=== PATIENT | female | born 1985 | race Caucasian/White ===

== ENCOUNTER 2018-01-07 11:25 | Emergency (ER) | payer MEDICARE, MEDICAID, SELFPAY ==
[2018-01-07 11:38] VITALS: BP 124/80; PULSE 76; RESP 18; TEMP 37.2; O2SAT 96
--- NOTE | 2018-01-07 12:42 | ED.GENADUL_ITS ---
Disposition Clinical Impression: Exposure to hepatitis C Disposition: HOME Condition: Stable Instructions: Hepatitis C (ED) Additional Instructions: If you start having yellowing of your skin, fever chills, nausea vomiting, abdominal pain please feel free to return immediately to the emergency department otherwise it is strongly recommended that you follow-up with your primary care provider for further testing due to your exposure to hepatitis C. Referrals: Oleg Thibodeaux MD [Primary Care Provider] - (Follow-up with her primary care provider for further testing of your possible hepatitis C.) Medical Decision Making - Medical Decision Making Patient presenting to the emergency department for possible hepatitis C exposure. Patient is asymptomatic and without any specific physical exam findings asked acute hepatitis. Patient was offered to perform CBC and CMP along with hepatitis panel but was told informed that we would have to wait for these results as this is a send out lab. Patient states that she was hoping to get results today and that she can go to the [facility] clinic and can get rapid hep C testing performed. I informed her I be still willing to perform labs here. She was agreeable to having labs performed and following up with her primary care provider next week for results. Pending lab coming to draw patient's blood she changed her mind and stated she would rather be discharged and go get the rapid test. Patient was encouraged to return for any new or worsening signs or symptoms of acute hepatitis and she was instructed that we could do these tests at any point that she continually stated she would prefer just to follow-up on an outpatient basis with her primary care and get testing at the clinic done due to not having any current symptoms. After discussion of diagnosis and plan of care with patient patient agreed and stated no further needs, questions, or concerns at this time. History of Present Illness - General Chief complaint: BodyFldExp Stated complaint: STD EXPOSURE? Time Seen by Provider: 01/07/18 12:00 Source: patient, RN notes reviewed Mode of arrival: ambulatory Limitations: no limitations - History of Present Illness Initial comments: Patient reports today she found out that her significant other tested positive for hepatitis C. She states that months ago she had shared needles with him but never had any symptoms. This weekend she did go down to [place] and had a dirty needle that she used which she assumed that it was hers but now is questioning that. Patient denies any fever chills, vomiting, abdominal pain, change in stool color. Patient does state some ongoing constipation. Associated Symptoms: denies other symptoms Treatments Prior to Arrival: none - Related Data Albuterol Sulfate [Accuneb] 0.63 mg IH PRN PRN 09/22/12 Methadone Liquid [Dolophine Liquid] 80 mg PO DAILY 12/03/17 Promethazine [Phenergan] 25 mg PO Q6H PRN #10 tab 12/03/17 Allergies Allergy/AdvReac Type Severity Reaction Status Date / Time clindamycin Allergy Severe Swelling/Ed Unverified 11/07/17 09:05 toya ibuprofen Allergy Intermediate Swelling/Ed Unverified 11/07/17 09:05 toya indomethacin Allergy Intermediate Swelling/Ed Unverified 11/07/17 09:05 toya latex Allergy Mild Itching Unverified 11/07/17 09:05 Latex, Natural Rubber Allergy Mild Skin Rash Unverified 11/07/17 09:05 Review of Systems Constitutional: denies: chills, diaphoresis, fever, malaise Respiratory: denies: cough, shortness of breath Cardiovascular: denies: chest pain Gastrointestinal: constipation. denies: abdominal pain, nausea, vomiting, diarrhea, melena, hematochezia Genitourinary: denies: dysuria, discharge, dyspareunia Musculoskeletal: denies: joint swelling Skin: denies: rash, change in color Neurological: denies: headache Past Medical History - Past Medical History Medical history: asthma Narcotic drug abuse Surgical history: bilateral tubal ligation Psychiatric history: anxiety, bipolar - Social History Smoking status: current everyday smoker Alcohol use: none Drug use: cocaine, marijuana, other (Heroin) Living Situation: lives with family General Exam - General Limitations: no limitations General appearance: alert, in no apparent distress - Eye Eye exam: Present: normal apperance. Absent: scleral icterus, conjunctival injection, nystagmus Pupils: Present: normal accommodation - Respiratory Respiratory exam: Present: normal lung sounds bilaterally - Cardiovascular Cardiovascular Exam: Present: regular rate, normal rhythm, normal heart sounds - GI/Abdominal GI/Abdominal exam: Present: soft, normal bowel sounds. Absent: tenderness, guarding, rebound, rigid, organomegaly, mass, bruit, pulsatile mass - Rectal Rectal exam: Present: deferred - Expanded Exam No standard instances Female exam: Present: deferred - Neurological Exam Neurological exam: Present: alert, oriented X3. Absent: altered - Skin Skin exam: Present: warm, dry, normal color Course Vital Signs - 24 hr 01/07/18 11:38 Temperature 37.2 C Pulse 76 Respiratory 18 Rate Blood Pressure 124/80 Pulse Oximetry 96
[2018-01-07 12:44] VITALS: BP 124/80; PULSE 76; RESP 18; TEMP 37.2; O2SAT 96
--- NOTE | 2018-01-07 12:46 | NUR.NOTE ---
Nursing Note: Patient refused to have her blood work performed and stated I am just going to go down to the [facility] clinic where they will give me my results right away. Patient stated I will go to my primary after.
== END 2018-01-07 12:44 | disposition home or self-care (01) ==
PROVIDERS: Emergency Provider Student in an Organized Health Care Education/Training Program; PCP Internal Medicine
DX: Z20.5 Contact with and (suspected) exposure to viral hepatitis (principal); F19.10 Other psychoactive substance abuse, uncomplicated
CPT/HCPCS: 99281 ×2; 80053; 86704; 86709; 86803; 87340; 85025

== ENCOUNTER 2018-01-16 17:22 | Emergency (ER) | payer MEDICARE, MEDICAID, SELFPAY ==
[2018-01-16 17:27] VITALS: BP 125/66; PULSE 77; RESP 18; TEMP 36.9; O2SAT 99
--- NOTE | 2018-01-16 17:38 | ED.GENADUL_ITS ---
Disposition Clinical Impression: Tooth infection Disposition: HOME Condition: Stable Additional Instructions: you need to follow up with a dentist or this tooth will continue to become infected if you have difficulty swallowing saliva or difficulty breathing return to the emergency department Prescriptions: Amoxicillin 500 mg PO BID #20 capsule Medical Decision Making - Medical Decision Making patient here with likely dental infection from her caries. 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 will have her f/u with dentist and start her on abx. Will also perform local nerve block given her pain at her request. She gives verbal consent to the block after discussion of risks and benefits. She has no evidence of abscess requiring drainage at this time - Differential Diagnosis caries, pulpitis History of Present Illness - General Chief complaint: DentalOral Stated complaint: TOOTHACHE Time Seen by Provider: 01/16/18 17:24 Source: patient Mode of arrival: ambulatory Limitations: no limitations - History of Present Illness Initial comments: 32 yo female comes in with left lower molar pain starting today. HAs significant erosion of the posterior molar lower left that she has left in her mouth (numerous teeth missing). no fevers, sob or difficulty swallowing. She has pain with percussion to this tooth. No submandibular swelling, normal oropharynx with midline uvula, no restricted neck movements and no pain over the hyoid. MD Complaint: tooth pain Onset/Timin -: days(s) Improves with: none Worsens with: none - Related Data Albuterol Sulfate [Accuneb] 0.63 mg IH PRN PRN 09/22/12 Methadone Liquid [Dolophine Liquid] 80 mg PO DAILY 12/03/17 Promethazine [Phenergan] 25 mg PO Q6H PRN #10 tab 12/03/17 Amoxicillin 500 mg PO BID #20 capsule 01/16/18 Allergies Allergy/AdvReac Type Severity Reaction Status Date / Time clindamycin Allergy Severe Swelling/Ed Unverified 01/16/18 17:28 toya ibuprofen Allergy Intermediate Swelling/Ed Unverified 01/16/18 17:28 toya indomethacin Allergy Intermediate Swelling/Ed Unverified 01/16/18 17:28 toya latex Allergy Mild Itching Unverified 01/16/18 17:28 Latex, Natural Rubber Allergy Mild Skin Rash Unverified 01/16/18 17:28 Review of Systems Constitutional: denies: fever ENT: dental pain. denies: throat pain Respiratory: denies: shortness of breath Gastrointestinal: denies: abdominal pain, nausea, vomiting Musculoskeletal: denies: back pain Skin: denies: rash Comment: All other systems reviewed and negative Past Medical History - Past Medical History Medical history: asthma Narcotic drug abuse Surgical history: bilateral tubal ligation - Social History Alcohol use: none Drug use: cocaine, marijuana, other (Heroin) General Exam - General Limitations: no limitations General appearance: alert, in no apparent distress - Head Head exam: Present: atraumatic - Eye Eye exam: Present: normal apperance - ENT ENT exam: Present: mucous membranes moist, other (see hpi) - Neck Neck exam: Present: normal inspection, full ROM. Absent: tenderness - Respiratory Respiratory exam: Absent: respiratory distress - Cardiovascular Cardiovascular Exam: Present: regular rate - Neurological Exam Neurological exam: Present: alert, oriented X3, normal gait - Skin Skin exam: Present: warm Course Vital Signs - 24 hr 01/16/18 17:27 Temperature 98.4 F Pulse 77 Respiratory 18 Rate Blood Pressure 125/66 Pulse Oximetry 99 Procedures - Nerve Block Consent Obtained: Verbal consent Time Out Performed: Yes Local Anesthetic Used: Lidocaine 2% Amount of anesthesia used: 5 Side: left Intraoral Nerve Block: supraperiosteal Procedure Successful: Yes Complications: none Patient Tolerated Procedure: well
[2018-01-16] MEDS: Amoxicillin 500 MG CAP PO (17:40)
[2018-01-16] MEDS: Benzocaine 20% Gel 30 GM JAR MM (17:41)
== END 2018-01-16 18:05 | disposition home or self-care (01) ==
PROVIDERS: Emergency Provider Emergency Medicine; PCP Internal Medicine
DX: K04.7 Periapical abscess without sinus (principal)
CPT/HCPCS: 99283 ×2

== ENCOUNTER 2018-06-07 09:07 | Emergency (ER) | payer MEDICARE, MEDICAID, SELFPAY ==
[2018-06-07 09:10] VITALS: BP 113/44; PULSE 70; RESP 14; TEMP 37.1; O2SAT 97
--- NOTE | 2018-06-07 09:27 | ED.GENADUL_ITS ---
Discharge Plan Disposition Patient Disposition: HOME Condition: Stable Discharge Details Chief Complaint: Cellulitis Clinical Impression: Cellulitis of hand Primary Care Provider: Oleg Thibodeaux ED Provider: Morena Story Home Meds and New Rx's Prescriptions: New sulfamethoxazole-trimethoprim [Bactrim DS] 800-160 mg tablet 1 tab PO DAILY Qty: 19 RF: 0 cephalexin [Keflex] 500 mg capsule 500 mg PO QID Qty: 39 RF: 0 Continued albuterol sulfate [AccuNeb] 0.63 MG/3 ML solution for nebulization 0.63 mg Inhalation PRN PRNRF: 0 methadone 10 MG/ML concentrate 90 mg PO DAILY RF: 0 Discharge Instructions Instructions: Cephalexin (By mouth), Sulfamethoxazole/Trimethoprim (By mouth), Cellulitis (ED) Additional Instructions: Please return immediately to the emergency department if you develop any new or worsening symptoms or if you become otherwise concerned. It is extremely important that you return here to the emergency department in 24 hours for a recheck of your infection. Referrals: Oleg Thibodeaux MD [Primary Care Provider] - Medical Decision Making Osiris Márquez is a 22-year-old woman with history of asthma, on methadone presenting to the emergency department with pain, redness, swelling to the left hand after using her own dirty needle to inject focal and 4 days ago at that site. On exam patient is very well and nontoxic appearing no cardiac murmur. Some limited flexion of the left wrist, but able to extend normally. Erythema, mild edema, and tenderness over the dorsum of the left hand, no fluctuance. Concern for cellulitis. FB. exam/history is not consistent with abscess, septic arthritis of the wrist, sepsis, endocarditis, osteomyelitis, necrotizing fasciitis. Plan for x-ray for rule out foreign body. At this point, plan for p.o. antibiotics with follow-up in 24 hours here for reevaluation of infection. X-ray okay, no gas, no foreign body. Lengthy discussion with patient regarding return to emergency department precautions and importance of outpatient follow- up here in 24 hours. She verbalizes understanding of and is amenable to the plan. Medical Records Medical records reviewed: Yes I reviewed the patient's medical records. Imaging Data Radiologic Study: Attestation: I personally reviewed and interpreted this imaging study as follows: My impression: No gas, no foreign body Radiologist's impression: No acute process, preliminary read HPI General Mode of arrival: ambulatory . Date/Time Provider Initiated Documentation: 06/07/18 09:27 . Limitations to Documentation: no limitations . Information obtained by: patient, RN notes reviewed and old records reviewed . HPI Narrative: Osiris Calle is a 32-year-old woman with history of asthma, on methadone presenting to the emergency department with hand pain and redness. Patient reports that 4 days ago she used her own dirty needle to inject Focalin to the dorsum of her left hand. Patient reports that yesterday she noticed redness and swelling to the top of her hand. Pain, redness, and swelling have persisted into today. She has not had any other pain, fevers, nausea/vom iting/diarrhea, any other rash. Feels otherwise in her usual state of health. Has been eating and drinking as usual. No drainage from the site. She does not think that the needle broke during injection. Related Data Home Medications Medication Instructions Recorded Confirmed albuterol sulfate [AccuNeb] 0.63 mg INHALATION PRN PRN 09/22/12 06/07/18 methadone 90 mg PO DAILY 12/03/17 06/07/18 cephalexin [Keflex] 500 mg PO QID #39 cap 06/07/18 sulfamethoxazole-trimethoprim 1 tab PO DAILY #19 tab 06/07/18 [Bactrim DS] Previous Rx's Medication Instructions Recorded cephalexin [Keflex] 500 mg PO QID #39 cap 06/07/18 sulfamethoxazole-trimethoprim 1 tab PO DAILY #19 tab 06/07/18 [Bactrim DS] Allergies Allergy/AdvReac Type Severity Reaction Status Date / Time clindamycin Allergy Severe Swelling/Ed Unverified 06/07/18 09:21 toya ibuprofen Allergy Intermediate Swelling/Ed Unverified 06/07/18 09:21 toya indomethacin Allergy Intermediate Swelling/Ed Unverified 06/07/18 09:21 toya latex Allergy Mild Itching Unverified 06/07/18 09:21 Latex, Natural Rubber Allergy Mild Skin Rash Unverified 06/07/18 09:21 General Stated Complaint: Cellulitis NAVID: 3 Review of Systems Review of Systems Constitutional: denies fevers Eyes: denies eye pain ENT: denies facial pain, dental pain, sore throat Cardiovascular: denies chest pain Respiratory: denies SOB, cough GI: denies abdominal pain, vomiting, diarrhea : denies flank pain MSK: denies back pain, neck pain, arthralgias, myalgias Skin: Reports rash as per HPI Neuro: denies headaches, weakness PFSH Social History Smoking/Tobacco Use Status: Current every day Exam Narrative Exam Narrative: Constitutional: well and [id number], pleasant, conversing normally HENT: head atraumatic, normocephalic normal inspection, mucous membranes moist Eyes: conjunctiva normal, sclera normal, pupils 3mm b/l Neck: no stridor, normal ROM, trachea midline Resp: normal work of breathing, LCTAB Cardio: normal rate, normal rhythm, no murmur appreciated Skin: warm, dry, normal color, no rash other than as below Neuro: alert, not altered, grossly non-focal, normal tone Ext: Left hand with dorsal edema, erythema that extends over left wrist. No drainage. Patient is able to extend wrist, has pain with flexion due to tightness from swelling, no bony tenderness to palpation of the left wrist. Range of motion preserved in all digits. Normal exam of the left elbow and forearm. Normal capillary refill. Radial pulse intact and symmetric. Psych: normal mood, normal affect, normal behavior Course Vital Signs Temperature 37.1 C 06/07/18 09:10 Pulse 70 06/07/18 09:10 Respiratory Rate 14 06/07/18 09:10 Blood Pressure 113/44 L 06/07/18 09:10 Pulse Oximetry 97 06/07/18 09:10 Temperature 37.1 C 06/07/18 09:10 Temperature Source Skin 06/07/18 09:10 Pulse 70 06/07/18 09:10 Respiratory Rate 14 06/07/18 09:10 Respiratory Effort 06/07/18 09:19 Blood Pressure 113/44 L 06/07/18 09:10 Blood Pressure Position Sitting 06/07/18 09:10 Pulse Oximetry 97 06/07/18 09:10 Oxygen Delivery Method Room Air 06/07/18 09:10 Oxygen Flow Rate 0 06/07/18 09:10 Pain Level 7 06/07/18 09:10
--- NOTE | 2018-06-07 09:37 | DI.RAD_ITS ---
SYMPTOM/DIAGNOSIS: INFECTION, CONCERN FOR FOREIGN BODY LEFT HAND: Three views. No acute fracture or dislocation is seen. No radiopaque foreign bodies are seen in the soft tissues. There is soft tissue swelling seen of the hand. IMPRESSION: Soft tissue swelling of the left hand. No radiopaque foreign body.
[2018-06-07] MEDS: Cephalexin 500 MG CAP PO (10:01)
[2018-06-07] MEDS: Sulfameth/Trimeth DS TAB 1 TAB PO (10:01)
== END 2018-06-07 10:20 | disposition home or self-care (01) ==
PROVIDERS: Emergency Provider Student in an Organized Health Care Education/Training Program; PCP Internal Medicine
DX: L03.114 Cellulitis of left upper limb (principal); W46.0XXA Contact with hypodermic needle, initial encounter; F11.90 Opioid use, unspecified, uncomplicated; F15.10 Other stimulant abuse, uncomplicated
CPT/HCPCS: 99284; 73130

== ENCOUNTER 2018-06-08 08:20 | Emergency (ER) | payer MEDICARE, MEDICAID, SELFPAY ==
[2018-06-08 08:25] VITALS: BP 104/65; PULSE 80; RESP 18; TEMP 37.2; O2SAT 100
--- NOTE | 2018-06-08 08:59 | ED.GENADUL_ITS ---
Discharge Plan Disposition Patient Disposition: HOME Discharge Details Chief Complaint: Cellulitis Clinical Impression: Cellulitis of hand, left Primary Care Provider: Oleg Thibodeaux ED Provider: Abiel Gupta Home Meds and New Rx's Prescriptions: Continued albuterol sulfate [AccuNeb] 0.63 MG/3 ML solution for nebulization 0.63 mg Inhalation PRN PRNRF: 0 methadone 10 MG/ML concentrate 90 mg PO DAILY RF: 0 sulfamethoxazole-trimethoprim [Bactrim DS] 800-160 mg tablet 1 tab PO DAILY Qty: 19 RF: 0 cephalexin [Keflex] 500 mg capsule 500 mg PO QID Qty: 39 RF: 0 Discharge Instructions Instructions: Cellulitis (ED) Additional Instructions: Keep the hand elevated above the level of the heart to reduce pain and swelling Continue both antibiotics (keflex and Bactrim), as they are prescribed. Follow-up with regular doctor for recheck in 3-5 days time. Continue your regular medications. Medical Decision Making 32-year-old female with left hand infection that began after using a dirty needle. She was seen in the emergency room yesterday placed on Bactrim and Keflex. She returns for recheck with ongoing swelling and discomfort. Somewhat improved with Tylenol at home. She is afebrile and well appearing. She does have edema and overlying erythema on the dorsum of the left hand. Differential diagnosis would include cellulitis, abscess, osteomyelitis. Referred for x-ray, laboratory testing, ultrasound. Ultrasound reveals soft tissue edema but no fluid collection. X-ray without bony changes. Lab revealed normal white blood cell count, mild elevation of the CRP. Normal ESR. Discussed with her home management including ongoing use of dual therapy antibiotics as prescribed by wilson Forrester for comfort and elevation of the hand, as well as indications for return. Lab Data Lab results reviewed: Yes I reviewed the patient's lab results. Laboratory Results - last 24 hr 06/08/18 06/08/18 09:50 09:50 WBC 9.97 RBC 4.11 Hgb 12.8 Hct 38.1 MCV 92.7 MCH 31.1 MCHC 33.6 RDW 13.7 Plt Count 278 MPV 10.3 Immature Gran % 0.1 Neutrophils % 74.2 Lymphocytes % 15.1 Monocytes % 8.6 Eosinophils % 1.7 Basophils % 0.3 Absolute Neutrophils 7.39 H Absolute Lymphocytes 1.51 Absolute Monocytes 0.86 H Absolute Eosinophils 0.17 Absolute Basophils 0.03 Sodium 139 Potassium 4.3 Chloride 103 Carbon Dioxide 27.3 Anion Gap 8.7 BUN 5 L Creatinine 0.83 Estimated GFR/1.73 m2 >= 60.00 Glucose 83 Calcium 8.5 C-Reactive Protein 2.75 H HPI General Mode of arrival: ambulatory . Date/Time Provider Initiated Documentation: 06/08/18 08:34 . Limitations to Documentation: no limitations . Information obtained by: patient . History of Present Illness 32 year old F presents to the emergency department with the chief complaint of Left hand infec tion, described as moderate, Quality is described as aching, and is localized to the left and upper extremity. Patient reports no radiation. Patient started experiencing this day(s) and it has been constant. No relieving factors improve symptom(s), No exacerbating factors reported . Patient notes no other symptoms.. Patient did receive the following treatments prior to arrival, none Related Data Home Medications Medication Instructions Recorded Confirmed albuterol sulfate [AccuNeb] 0.63 mg INHALATION PRN PRN 09/22/12 06/08/18 methadone 90 mg PO DAILY 12/03/17 06/08/18 cephalexin [Keflex] 500 mg PO QID #39 cap 06/07/18 06/08/18 sulfamethoxazole-trimethoprim 1 tab PO DAILY #19 tab 06/07/18 06/08/18 [Bactrim DS] Previous Rx's Medication Instructions Recorded cephalexin [Keflex] 500 mg PO QID #39 cap 06/07/18 sulfamethoxazole-trimethoprim 1 tab PO DAILY #19 tab 06/07/18 [Bactrim DS] Allergies Allergy/AdvReac Type Severity Reaction Status Date / Time clindamycin Allergy Severe Swelling/Ed Unverified 06/08/18 08:37 toya ibuprofen Allergy Intermediate Swelling/Ed Unverified 06/08/18 08:37 toya indomethacin Allergy Intermediate Swelling/Ed Unverified 06/08/18 08:37 toya latex Allergy Mild Itching Unverified 06/08/18 08:37 Latex, Natural Rubber Allergy Mild Skin Rash Unverified 06/08/18 08:37 General Stated Complaint: Cellulitis NAVID: 3 Review of Systems Review of Systems 6 systems reviewed and otherwise negative [facility] Social History Smoking/Tobacco Use Status: Current every day Exam Narrative Exam Narrative: GEN: awake, alert, oriented 3. Pleasant, well groomed, interactive. HEAD: Normocephalic, atraumatic ENT: Mucous membranes moist, oropharynx unremarkable, External ear exam unremarkable EYES: PERRL, EOMI EXT: Full ROM of the left hand is edematous with approximately 3 x 5 cm area of erythema on the dorsal surface. No significant lymphangitic streaks. Neuro: Grossly normal neurologic exam, conversant, interactive. Psych: Speech fluent, thoughts congruent, affect normal Course Vital Signs Temperature 37.2 C 06/08/18 08:25 Pulse 80 06/08/18 08:25 Respiratory Rate 18 06/08/18 08:25 Blood Pressure 104/65 06/08/18 08:25 Pulse Oximetry 100 06/08/18 08:25 Temperature 37.2 C 06/08/18 08:25 Temperature Source Temporal Artery Scan 06/08/18 08:25 Pulse 80 06/08/18 08:25 Respiratory Rate 18 06/08/18 08:25 Respiratory Effort Non-Labored 06/08/18 08:34 Blood Pressure 104/65 06/08/18 08:25 Blood Pressure Position Sitting 06/08/18 08:25 Pulse Oximetry 100 06/08/18 08:25 Oxygen Delivery Method Room Air 06/08/18 08:25 Oxygen Flow Rate 0 06/08/18 08:25 Pain Level 8 06/08/18 08:25
--- NOTE | 2018-06-08 09:40 | DI.US_ITS ---
SYMPTOMS/DIAGNOSIS: LEFT HAND SWELLING, ? ABSCESS LEFT HAND ULTRASOUND: Sonographic evaluation on the dorsum of the left hand was performed. There is extensive fluid seen in the soft tissues and increased blood flow in the surrounding soft tissues, likely reflecting cellulitis. No definite focal encapsulated fluid collection is seen at this time to suggest an abscess. IMPRESSION: Cellulitis involving the left hand. No definite abscess seen sonographically. The findings were discussed with the Emergency Department on the date of the examination.
--- NOTE | 2018-06-08 09:42 | DI.RAD_ITS ---
SYMPTOMS/DIAGNOSIS: DORSAL PAIN AFTER INJECTION LEFT HAND: Three views. No bone or joint abnormality is identified. There is prominent soft tissue swelling on the dorsum of the hand. No radiopaque foreign bodies are present in the soft tissues. IMPRESSION: Soft tissue swelling on the dorsum of the hand without underlying osseous abnormality.
[2018-06-08 09:58] LABS: Abs Immature Grans 0.01 k/cumm (0.0-0.09); Absolute Basophil Count 0.03 k/cumm (0.0-0.2); Absolute Eosinophil Count 0.17 k/cumm (0.0-0.7); Absolute Lymphocyte Count 1.51 k/cumm (1.2-3.4); Absolute Monocyte Count 0.86 k/cumm (0.11-0.7); Absolute Neutrophil Count 7.39 k/cumm (1.2-6.7); Basophils % 0.3; Eosinophils % 1.7; HCT 38.1 % (36.0-46.0); HGB 12.8 g/dL (12.0-15.5); Immature Grans % 0.1; Lymphocytes % 15.1; Mean Corp. HGB Concentration 33.6 g/dL (32.0-36.0); Mean Corpuscular Hemoglobin 31.1 pg (27.0-33.0); Mean Corpuscular Volume 92.7 fL (80-95); Mean Platelet Volume 10.3 fL (8.0-11.0); Monocytes % 8.6; Neutrophils % 74.2; Platelet Count 278 x1000/uL (130-400); RBC 4.11 m/cumm (4.00-5.20); RBC Distribution Width 13.7 % (11.7-14.6); White Blood Cell Count 9.97 k/cumm (4.4-10.8)
[2018-06-08 10:06] LABS: Anion Gap 8.7 mmol/L (3-11); BUN 5 mg/dL (7-18); C-Reactive Protein 2.75 mg/dL (0.0-0.3); CO2 27.3 mmol/L (21.0-32.0); CREATININE 0.83 mg/dL (0.55-1.02); Calcium 8.5 mg/dL (8.5-10.1); Chloride 103 mmol/L (98-107); Glucose 83 mg/dL (70-100); Potassium 4.3 mmol/L (3.5-5.1); Sodium 139 mmol/L (136-145)
[2018-06-08 10:31] LABS: ESR 17 MM/HR (0-20)
[2018-06-08 11:01] VITALS: BP 104/65; PULSE 80; RESP 18; TEMP 37.2; O2SAT 100
--- NOTE | 2018-06-08 12:17 | PDOC.ERCMPRO ---
Care Management Progress Note 06/08-Dr. Gupta requested assistance with some information for Osiris. Osiris is stating that she needs to be in court at 1:30 today in [place]. She has reported to nursing that she is going to be going [facility]. Met with Osiris. She easily engages in conversation with this CM. Osiris states she has to be in court at 1:30 today in [place] and has requested that a fax be sent letting the court know that she is here. Osiris gave the fax number as [phone]. This CM assisted Dr. Gupta with a note on [facility] Letterhead to the courthouse stating that Osiris is in the Emergency Department and was being discharged. Dr. Gupta signed the note and it was faxed to the court house. Discussion with Osiris that the letter was faxed. Dr. Gupta discussed her being discharged. Osiris stated to this CM that she was not going to the court hearing today because of transportation issues. Dr. Gupta was requesting a PCP (Dr. Thibodeaux) f/u n 3-5 days. This CM called [facility] and spoke with Wilda (Joan, Chronic Helpdesk Manager was not in). Wilda will send message for Joan to f/u with Osiris for appt. if she is not incarcerated. Osiris has this CM's contact information if further assistance is needed.
--- NOTE | 2018-06-08 12:30 | CMPROGNOTE_ITS ---
Care Management Progress Note 06/08-Dr. Gupta requested assistance with some information for Osiris. Osiris is stating that she needs to be in court at 1:30 today in [place]. She has reported to nursing that she is going to be going to retirement. Met with Osiris. She easily engages in conversation with this CM. Osiris states she has to be in court at 1:30 today in [place] and has requested that a fax be sent letting the court know that she is here. Osiris gave the fax number as [phone]. This CM assisted Dr. Gupta with a note on [facility] Letterhead to the courthouse stating that Osiris is in the Emergency Department and was being discharged. Dr. Gupta signed the note and it was faxed to the court house. Discussion with Osiris that the letter was faxed. Dr. Gupta discussed her being discharged. Osiris stated to this CM that she was not going to the court hearing today because of transportation issues. Dr. Gupta was requesting a PCP (Dr. Thibodeaux) f/u n 3-5 days. This CM called [facility] and spoke with Wilda (Joan, Chronic Associate Software Development Engineer was not in). Wilda will send message for Joan to f/u with Osiris for appt. if she is not incarcerated. Osiris has this CM's contact information if further assistance is needed.
== END 2018-06-08 11:10 | disposition home or self-care (01) ==
PROVIDERS: Emergency Provider Emergency Medicine; PCP Internal Medicine
DX: L03.114 Cellulitis of left upper limb (principal)
CPT/HCPCS: 36415; 76882; 80048; 85652; 99283; 73130; 85025; 86140; L3650

== ENCOUNTER 2018-06-11 08:18 | Emergency (ER) | payer MEDICARE, MEDICAID, SELFPAY ==
[2018-06-11 08:21] VITALS: BP 124/86; PULSE 100; RESP 18; TEMP 37.1; O2SAT 100
--- NOTE | 2018-06-11 08:42 | ED.GENADUL_ITS ---
Discharge Plan Disposition Patient Disposition: HOME Condition: Good Discharge Details Chief Complaint: Cellulitis Clinical Impression: Abscess Primary Care Provider: Oleg Thibodeaux ED Provider: Armando Camargo Home Meds and New Rx's Prescriptions: No Action albuterol sulfate [AccuNeb] 0.63 MG/3 ML solution for nebulization 0.63 mg Inhalation PRN PRNRF: 0 methadone 10 MG/ML concentrate 90 mg PO DAILY RF: 0 sulfamethoxazole-trimethoprim [Bactrim DS] 800-160 mg tablet 1 tab PO DAILY Qty: 19 RF: 0 cephalexin [Keflex] 500 mg capsule 500 mg PO QID Qty: 39 RF: 0 Discharge Instructions Instructions: Abscess (ED) Additional Instructions: Continue using your antibiotics. Use Tylenol and Motrin as needed for pain. If you notice any worsening of your symptoms, or any new symptoms such as worsening redness on your risk, worsening swelling, worsening pain, vomiting, diarrhea, fever, chills, shortness of breath, chest pain, numbness, weakness, or fainting , please return immediately to the emergency department for reevaluation. Please follow up with your primary care provider as soon as possible for reassessment and reevaluation. As always, it was a pleasure participating in your medical care today. Referrals: Oleg Thibodeaux MD [Primary Care Provider] - Medical Decision Making This is a 32-year-old female who presents for her signs and symptoms consistent with an abscess. She was seen and assessed here 3 days ago for cellulitis with no signs of an abscess at that time. At that time she just had notable cellulitis. She was started on Bactrim and Keflex. Since then the patient has had a notable amount of swelling over the dorsal medial aspect on the wrist. Her redness has completely improved, she states that her pain and symptoms are much improved compared to normal however the swelling does have her concerned. Physical exam demonstrates an abscess is confirmed by ultrasound bedside. No evidence of joint involvement at this time clinically or on the ultrasound. No cardiac murmur or other concerning abnormalities. Reassuring vital signs. Patient is very apprehensive about actual incision and drainage so we will use an 18-gauge needle for removal/evaluation of potential purulent contents. 9:12 AM An 18-gauge was used for the abscess, no significant purulent material was removed. An 11 blade was then used and a massive amount of purulent material was removed. Patient tolerated this well and was feeling much better after this. Wound cultures were sent. I feel that she is improving well with the antibiotic we will have her continue on this. We discussed red flags which to return. Tetanus is up-to-date. I have extensively reviewed the treatment plan and discharge instructions with the patient. I have addressed all patient concerns at this time. The patient was made aware of what symptoms to monitor for that would warrant a return to the emergency department. Discussed the plan with the patient, they demonstrate verbal understanding and agreement with our assessment and plan at this time. HPI General Date/Time Provider Initiated Documentation: 06/11/18 08:19 . HPI Narrative: This is a 32-year-old female with a past medical history of methadone use, and IV drug use who presents today for swelling on her left nondominant wrist. The patient was seen and assessed here 3 days ago where there was notable cellulitis, however ultrasound report demonstrates no evidence of fluid collection or signs of abscess. The patient was started on Bactrim and Keflex at this time. Since then the patient's redness has notably gone down, her pain is improved, however she has noticed a focal swelling over the dorsal medial aspect of her wrist. The patient admits to slight difficulty flexing and extending her wrist secondary to the swelling but denies any significant or severe pain. Patient denies any systemic symptoms of fever or chills and states that she actually feels much better than she did before she was started on the antibiotic. Patient's tetanus is up-to-date. She denies any other complaints a t this time. She denies any other modifying factors. The area of cellulitis is where she injected with IV Focalin. She denies any breaking of the needle, or any retained products. She denies any pertinent family history or recent surgical history. Related Data Home Medications Medication Instructions Recorded Confirmed albuterol sulfate [AccuNeb] 0.63 mg INHALATION PRN PRN 09/22/12 06/08/18 methadone 90 mg PO DAILY 12/03/17 06/08/18 cephalexin [Keflex] 500 mg PO QID #39 cap 06/07/18 06/08/18 sulfamethoxazole-trimethoprim 1 tab PO DAILY #19 tab 06/07/18 06/08/18 [Bactrim DS] Previous Rx's Medication Instructions Recorded cephalexin [Keflex] 500 mg PO QID #39 cap 06/07/18 sulfamethoxazole-trimethoprim 1 tab PO DAILY #19 tab 06/07/18 [Bactrim DS] Allergies Allergy/AdvReac Type Severity Reaction Status Date / Time clindamycin Allergy Severe Swelling/Ed Unverified 06/08/18 08:37 toya ibuprofen Allergy Intermediate Swelling/Ed Unverified 06/08/18 08:37 toya indomethacin Allergy Intermediate Swelling/Ed Unverified 06/08/18 08:37 toya latex Allergy Mild Itching Unverified 06/08/18 08:37 Latex, Natural Rubber Allergy Mild Skin Rash Unverified 06/08/18 08:37 General Stated Complaint: Cellulitis NAVID: 3 Review of Systems Review of Systems All systems reviewed & are unremarkable except as noted in HPI and below PFSH Social History Smoking/Tobacco Use Status: Current every day Exam Narrative Exam Narrative: 1.Const: Well-nourished, Well-developed, appearing stated age 2.Eyes: PERRL, no conjunctival injection, and symmetrical lids. 3.ENT: Atraumatic external nose and ears. Moist MM. Neck: Symmetric, trachea midline, No thyromegaly. 4.CVS: +S1/S2, No cardiac murmurs or gallops. Peripheral pulses 2+ and equal in all extremities. Brisk capillary refill in all extremities. 5.RESP: Unlabored respiratory effort. Clear to auscultation bilaterally. No wheezes rales or rhonchi 6.GI: Soft, Nontender/Nondistended, No hepatosplenomegaly. No guarding or rebound. 7.MSK: Normocephalic/Atraumatic, No cyanosis or clubbing, the patient's left nondominant wrist demonstrates notable area of swelling and fluctuance over the dorsal medial aspect of the wrist. It is roughly 3 x 3 cm. Limited bedside ultrasound demonstrates evidence of notable fluid collection with associated fluctuance. Bedside imaging reveals that the area of fluctuance is superficial, and not deep or near the joint space. Range of motion is limited for the wrist secondary to tension from the swelling, however there is no significant pain on palpation of the wrist. Capillary refill is brisk, radial pulses +2 bilaterally. Sensation is intact distal to the abscess. The area where the patient marked for the prior location of her redness is now completely gone, the only present redness is over the abscess itself. No evidence of significant warmth. No significant induration. No other abnormality. 8.Skin: Warm, Dry. No rashes or lesions. No Janeway lesions or Osler nodes. Please see musculoskeletal for description of the abscess. 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 Sensation grossly intact, no focal neurologic deficits. 10.Psych: (AAO) x3. Appropriate mood and affect Course Vital Signs Temperature 37.1 C 06/11/18 08:21 Pulse 100 H 06/11/18 08:21 Respiratory Rate 18 06/11/18 08:21 Blood Pressure 124/86 06/11/18 08:21 Pulse Oximetry 100 06/11/18 08:21 Temperature 37.1 C 06/11/18 08:21 Temperature Source Temporal Artery Scan 06/11/18 08:21 Pulse 100 H 06/11/18 08:21 Respiratory Rate 18 06/11/18 08:21 Respiratory Effort Non-Labored 06/11/18 08:21 Blood Pressure 124/86 06/11/18 08:21 Blood Pressure Position Sitting 06/11/18 08:21 Pulse Oximetry 100 06/11/18 08:21 Oxygen Delivery Method Room Air 06/11/18 08:21 Oxygen Flow Rate 0 06/11/18 08:21
--- NOTE | 2018-06-11 08:55 | NUR.NOTE ---
Nursing Note: Assisted MD Camargo with bedside I & D.
== END 2018-06-11 09:26 | disposition home or self-care (01) ==
PROVIDERS: Emergency Provider Student in an Organized Health Care Education/Training Program; PCP Internal Medicine
DX: L02.414 Cutaneous abscess of left upper limb (principal); F15.10 Other stimulant abuse, uncomplicated
CPT/HCPCS: 10060; 87077; 87070; 87186; 87205

== ENCOUNTER 2018-09-06 12:22 | Emergency (ER) | payer MEDICARE, MEDICAID, SELFPAY ==
[2018-09-06 12:28] VITALS: BP 120/87; PULSE 78; RESP 16; TEMP 37.2; O2SAT 97
--- NOTE | 2018-09-06 12:47 | W.ED.GENAD ---
Discharge Plan Disposition Patient Disposition: HOME Condition: Stable Discharge Details Chief Complaint: RashLesion Clinical Impression: Cellulitis Primary Care Provider: Oleg Thibodeaux ED Provider: Corbin Oakley Home Meds and New Rx's Prescriptions: New sulfamethoxazole-trimethoprim [Bactrim DS] 800-160 mg tablet 1 tab PO BID Qty: 14 RF: 0 cephalexin 500 mg capsule 500 mg PO QID 7 Days Qty: 28 RF: 0 No Action albuterol sulfate [AccuNeb] 0.63 MG/3 ML solution for nebulization 0.63 mg Inhalation PRN PRNRF: 0 methadone 10 MG/ML concentrate 90 mg PO DAILY RF: 0 Discharge Instructions Instructions: Cellulitis (ED) Additional Instructions: you should be contacted with an appointment for general surgery if you develop high fevers or severe worsening of pain return to the emergency department for reevaluation Medical Decision Making 32 yo female with hx of prior ivdu and denies any recent use, comes in with rash on right foot and right posterior forearm for about 2 days. She denies revers or severe pain. She has a round 2x2 cm area of mild erythema with open area that had drainage per pt earlier and has none now on the dorsal surface of the right mid foot. No crepitus or significant swelling. Appears to be an abscess that has drained. She also has a 3x3cm of mild erythema of the right posterior forearm with a small abrasion that she states is from itching. There is mild warmth, no fluctuance or fluid collection on bedside u/s so do not feel there is an abscess to drain in this area at this time. Will start abx to cover for cellulitis and abscess and have her f/u with general surgery to ensure she doesn't require an incision and drainage. No fever or other systemic symptoms to suggest sepsis or osteo at this time so do not feel labs or imaging indicated and no severe pain to suggest nec fasc. no fever, murmurs or other stigmata of endocarditits at this time Differential Diagnosis abscess, cellulitis, insect bite HPI General Mode of arrival: ambulatory. Date/Time Provider Initiated Documentation: 09/06/18 12:24. Limitations to Documentation: no limitations. Information obtained by: patient. History of Present Illness 32 year old F presents to the emergency department with the chief complaint of rash, described as moderate, and is localized to the right and upper extremity. Patient started experiencing this day(s) (2) No relieving factors improve symptom(s), No exacerbating factors reported . Patient did receive the following treatments prior to arrival, none Related Data Home Medications Medication Instructions Recorded Confirmed albuterol sulfate [AccuNeb] 0.63 mg INHALATION PRN PRN 09/22/12 09/06/18 methadone 90 mg PO DAILY 12/03/17 09/06/18 cephalexin 500 mg PO QID 7 Days #28 cap 09/06/18 sulfamethoxazole-trimethoprim 1 tab PO BID #14 tab 09/06/18 [Bactrim DS] Previous Rx's Medication Instructions Recorded cephalexin 500 mg PO QID 7 Days #28 cap 09/06/18 sulfamethoxazole-trimethoprim 1 tab PO BID #14 tab 09/06/18 [Bactrim DS] Allergies Allergy/AdvReac Type Severity Reaction Status Date / Time clindamycin Allergy Severe Swelling/Ed Unverified 09/06/18 12:45 toya ibuprofen Allergy Intermediate Swelling/Ed Unverified 09/06/18 12:45 toya indomethacin Allergy Intermediate Swelling/Ed Unverified 09/06/18 12:45 toya latex Allergy Mild Itching Unverified 09/06/18 12:45 Latex, Natural Rubber Allergy Mild Skin Rash Unverified 09/06/18 12:45 General Stated Complaint: RashLesion NAVID: 4 Review of Systems Review of Systems All systems reviewed & are unremarkable except as noted in HPI and below Constitutional Denies chills, Denies fever(s) and Denies weakness ENT Denies change in voice Cardiovascular Denies chest pain and Denies dyspnea Respiratory Denies cough and Denies dyspnea Gastrointestinal Denies abdominal pain, Denies nausea and Denies vomiting Musculoskeletal Denies joint swelling Neurologic Denies weakness [facility] Social History Smoking/Tobacco Use Status: Current every day Tobacco Type: cigarettes Smoking packs per day: 0.5 Alcohol Intake: never Drug use: Occasionally 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 Do you feel safe at home: Yes Do you feel safe in your relationship?: Yes Exam Const General: no acute distress Orientation: alert HENMT Head: normal to inspection Ears: external ears normal General nose exam: external nose normal Mouth: moist mucous membranes Eyes General: appearance normal, both eyes and all related structures Neck Neck: normal visual inspection Resp Effort & Inspection: normal respiratory effort and able to speak in complete sentences Cardio Rate: regular rate Skin General skin exam: elasticity normal Neuro General: alert and oriented x3 Extrem General: full ROM and normal capillary refill Psych Mental Status: mental status grossly normal Course Vital Signs Temperature 37.2 C 09/06/18 12:28 Pulse 78 09/06/18 12:28 Respiratory Rate 16 09/06/18 12:28 Blood Pressure 120/87 09/06/18 12:28 Pulse Oximetry 97 09/06/18 12:28 Temperature 37.2 C 09/06/18 12:28 Temperature Source Temporal Artery Scan 09/06/18 12:28 Pulse 78 09/06/18 12:28 Respiratory Rate 16 09/06/18 12:28 Respiratory Effort Non-Labored 09/06/18 12:42 Blood Pressure 120/87 09/06/18 12:28 Blood Pressure Position Sitting 09/06/18 12:28 Pulse Oximetry 97 09/06/18 12:28 Oxygen Delivery Method Room Air 09/06/18 12:28 Oxygen Flow Rate 0 09/06/18 12:28 Pain Level 9 09/06/18 12:28 Comment 09/06/18 12:28
--- NOTE | 2018-09-07 08:31 | PDOC.ERCMPRO ---
Care Management Progress Note 09/07-Dr. Oakley requested assistance with a general surgery f/u this week for foot and arm abscess. Referral faxed to [facility].
== END 2018-09-06 12:59 | disposition home or self-care (01) ==
LOC: ER 12:50
PROVIDERS: Emergency Provider Emergency Medicine; PCP Internal Medicine
DX: L03.114 Cellulitis of left upper limb (principal)
CPT/HCPCS: 99283

== ENCOUNTER 2018-09-09 19:40 | Emergency (ER) | payer MEDICARE, MEDICAID, SELFPAY ==
[2018-09-09 19:47] VITALS: BP 128/58; PULSE 95; RESP 18; TEMP 36.7; O2SAT 96
--- NOTE | 2018-09-09 20:03 | ED.GENADUL_ITS ---
Discharge Plan Disposition Patient Disposition: HOME Condition: Good Discharge Details Chief Complaint: Cellulitis Clinical Impression: Cellulitis Primary Care Provider: Oleg Thibodeaux ED Provider: Armando Camargo Home Meds and New Rx's Prescriptions: New linezolid 600 mg tablet 600 mg PO BID 14 Days Qty: 28 RF: 0 doxycycline hyclate 100 mg tablet 100 mg PO BID Qty: 20 RF: 0 No Action albuterol sulfate [AccuNeb] 0.63 MG/3 ML solution for nebulization 0.63 mg Inhalation PRN PRNRF: 0 methadone 10 MG/ML concentrate 90 mg PO DAILY RF: 0 sulfamethoxazole-trimethoprim [Bactrim DS] 800-160 mg tablet 1 tab PO BID Qty: 14 RF: 0 cephalexin 500 mg capsule 500 mg PO QID 7 Days Qty: 28 RF: 0 Discharge Instructions Instructions: Cellulitis (ED) Additional Instructions: Please stop taking the Bactrim. Continue taking the Keflex. The ideal medication would be the Estefania nasal lid which we have prescribed, however your insurance might not cover this. If it does not then we recommend taking doxycycline 100 mg twice daily for which we have also prescribed a prescription. If your symptoms do not improve in the next 24-48 hours with these medications please return immediately, as he will require IV antibiotics. If you notice any worsening of your symptoms, or any new symptoms such as vomiting, diarrhea, fever, chills, shortness of breath, chest pain, numbness, weakness, or fainting , please return immediately to the emergency department for reevaluation. Please follow up with your primary care provider as soon as possible for reassessment and reevaluation. As always, it was a pleasure participating in your medical care today. Stand Alone Forms: Work Release Referrals: Oleg Thibodeaux MD [Primary Care Provider] - Medical Decision Making This is a pleasant 32-year-old female with a past medical history of MRSA, IV drug use in the past, and abscesses. 3 days ago she presented for lesion on her right elbow, she was started on Keflex and Bactrim. The patient noticed slight worsening of the redness today, with slight spreading. She denies any systemic symptoms of fever, chills, pain in her joint of the elbow with movement, or significant worsening pain. She does admit to notable pruritus in that area, and has been scratching vigorously. Clinical exam demonstrates no evidence of abscess, portable limited bedside ultrasound shows no evidence of abscess, significant fluid around the joint, or pus pockets traveling up the arm. Patient demonstrates excellent range of motion for the elbow without pain or restriction. Vital signs demonstrate no significant tachycardia, the patient is afebrile. There are no clinical signs of sepsis, septic joint, or severe cellulitis. At this time there is no clear indication for admission, however the patient does seem to need a change in coverage, for MRSA out of concern for Bactrim resistant MRSA. We will give patient the first dose of linezolid here, however out of concern that her insurance will not cover it, we will also give a prescription for doxycycline. Currently the pharmacies are not open to call for pricing or availability. I had a long sit down discussion with the patient regarding red flags which to return, the importance of close follow-up with her surgical visit tomorrow, as well as reasons for which to return. After this thorough discussion the patient feels very comfortable going home, will return if any of her symptoms worsen, at which point she will require admission for IV antibiotics. I have extensively reviewed the treatment plan and discharge instructions with the patient and their family. I have addressed all patient concerns at this time. The patient and family was made aware of what symptoms to monitor for that would warrant a return to the emergency department. Discussed the plan with the patient and family, they demonstrate verbal understanding and agreement with our assessment and plan at this time. HPI General Date/Time Provider Initiated Documentation: 09/09/18 19:56 . HPI Narrative: This is a 32-year-old female with a past medical history of previous IV drug use and abscess, who presents today for evaluation of cellulitis. The patient was seen and assessed here in the emergency department 2-3 days ago, where at that time she demonstrated evidence of mild cellulitis over the right elbow, as well as one lesion on the left foot and a second lesion on the right arm, both of which she has been scratching at vigorously. At that time the patient had multiple about bedside ultrasound that showed no evidence of abscess or fluctuance, and she had reassuring vital signs, and she was discharged home on Bactrim and Keflex for MRSA coverage. The patient has taken the antibiotics for the last 2 days, it is noticed that the lesion on her elbow has had some slight spreading. The redness is spread roughly 1-2 cm from the initial elbow site. She states that the other lesions are much better, however she keeps scratching at them. She denies any pain with movement of the elbow, she denies any fever, chills, or severe pain in the arm. She denies any swelling or drainage. There was only a slight increase in redness that cause a concern. Patient denies any headache, neck pain, neck stiffness, cough, shortness of breath, weakness, tingling. She denies any other complaints at this time. She denies any modifying factors. Related Data Home Medications Medication Instructions Recorded Confirmed albuterol sulfate [AccuNeb] 0.63 mg INHALATION PRN PRN 09/22/12 09/09/18 methadone 90 mg PO DAILY 12/03/17 09/09/18 cephalexin 500 mg PO QID 7 Days #28 cap 09/06/18 09/09/18 sulfamethoxazole-trimethoprim 1 tab PO BID #14 tab 09/06/18 09/09/18 [Bactrim DS] doxycycline hyclate 100 mg PO BID #20 tab 09/09/18 linezolid 600 mg PO BID 14 Days #28 tab 09/09/18 Previous Rx's Medication Instructions Recorded cephalexin 500 mg PO QID 7 Days #28 cap 09/06/18 sulfamethoxazole-trimethoprim 1 tab PO BID #14 tab 09/06/18 [Bactrim DS] doxycycline hyclate 100 mg PO BID #20 tab 09/09/18 linezolid 600 mg PO BID 14 Days #28 tab 09/09/18 Allergies Allergy/AdvReac Type Severity Reaction Status Date / Time clindamycin Allergy Severe Swelling/Ed Unverified 09/09/18 19:49 toya ibuprofen Allergy Intermediate Swelling/Ed Unverified 09/09/18 19:49 toya indomethacin Allergy Intermediate Swelling/Ed Unverified 09/09/18 19:49 toya latex Allergy Mild Itching Unverified 09/09/18 19:49 Latex, Natural Rubber Allergy Mild Skin Rash Unverified 09/09/18 19:49 General Stated Complaint: Cellulitis NAVID: 3 Review of Systems Review of Systems All systems reviewed & are unremarkable except as noted in HPI and below PFSH Social History Smoking/Tobacco Use Status: Current every day Tobacco Type: cigarettes Alcohol Intake: never Drug use: Occasionally 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 3.ENT: Atraumatic external nose and ears. Moist MM. Neck: Symmetric, trachea midline, No thyromegaly. 4.CVS: +S1/S2, No murmurs or gallops. Peripheral pulses 2+ and equal in all extremities. Brisk capillary refill in all extremities. 5.RESP: Unlabored respiratory effort. Clear to auscultation bilaterally. No wheezes rales or rhonchi 6.GI: Soft, Nontender/Nondistended, No hepatosplenomegaly. No guarding or rebound. 7.MSK: Normocephalic/Atraumatic, Extremities w/o deformity or ttp No cyanosis or clubbing, Normal movement of all extremities no evidence of swelling over the elbow, no pain with movement of the elbow. No clinical evidence of a septic joint. 8.Skin: Warm, Dry. Patient's right elbow demonstrates a very small amount of erythema and induration over the medial aspect by the medial epicondyle. There is a light mild amount of redness that extends roughly 1 cm distal, and 2-3 cm proximally. No evidence of fluctuance. Bedside portable limited ultrasound demonstrates no evidence of fluid in or around the joint that is pathologic, no evidence of abscess, no evidence of fluid collection around the redness or traveling up the arm. Notable excoriations are present all around this, secondary to the patient. There is a small well-healing lesion on the patient's forearm, no significant surrounding erythema this lesion. Small amount of crusting and scab is present. A similar lesion is present on the left foot and is also well healing and shows no evidence of abscess or fluctuance. No other significant abnormalities. 9.Neuro: respite coordinator II-XII grossly intact. Sensation grossly intact, no focal neurologic deficits. 10.Psych: (AAO) x3. Appropriate mood and affect Course Vital Signs Temperature 36.7 C 09/09/18 19:47 Pulse 95 H 09/09/18 19:47 Respiratory Rate 18 09/09/18 19:47 Blood Pressure 128/58 L 09/09/18 19:47 Pulse Oximetry 96 09/09/18 19:47 Temperature 36.7 C 09/09/18 19:47 Temperature Source Skin 09/09/18 19:47 Pulse 95 H 09/09/18 19:47 Respiratory Rate 18 09/09/18 19:47 Respiratory Effort 09/09/18 19:50 Blood Pressure 128/58 L 09/09/18 19:47 Pulse Oximetry 96 09/09/18 19:47 Oxygen Delivery Method Room Air 09/09/18 19:47 Oxygen Flow Rate 0 09/09/18 19:47 Pain Level 3 09/09/18 19:47
[2018-09-09] MEDS: hydrOXYzine HCL 25 MG TAB PO (20:28)
[2018-09-09] MEDS: Linezolid 600 MG TAB PO (20:36)
== END 2018-09-09 20:38 | disposition home or self-care (01) ==
PROVIDERS: Emergency Provider Student in an Organized Health Care Education/Training Program; PCP Internal Medicine
DX: L03.113 Cellulitis of right upper limb (principal)
CPT/HCPCS: 99283

== ENCOUNTER → 2018-09-10 09:54 | Outpatient (BNVA) | payer MEDICARE, MEDICAID, SELFPAY | PROVIDERS: PCP Internal Medicine; Referring Provider Internal Medicine; Visit Provider Surgery | DX: L53.9 Erythematous condition, unspecified (principal); Z98.890 Other specified postprocedural states | CPT/HCPCS: 99202; 99213 ==

== ENCOUNTER 2018-09-14 16:44 | Outpatient (CLI) | payer MEDICARE, MEDICAID, SELFPAY ==
[2018-09-14 19:22] LABS: Abs Immature Grans 0.02 k/cumm (0.0-0.09); Absolute Basophil Count 0.03 k/cumm (0.0-0.2); Absolute Monocyte Count 0.73 k/cumm (0.11-0.7); Absolute Neutrophil Count 4.86 k/cumm (1.2-6.7); Basophils % 0.4; Eosinophils % 2.6; HCT 37.1 % (36.0-46.0); HGB 12.5 g/dL (12.0-15.5); Immature Grans % 0.3; Lymphocytes % 25.5; Mean Corp. HGB Concentration 33.7 g/dL (32.0-36.0); Mean Corpuscular Hemoglobin 30.3 pg (27.0-33.0); Mean Corpuscular Volume 89.8 fL (80-95); Mean Platelet Volume 11.2 fL (8.0-11.0); Monocytes % 9.3; Neutrophils % 61.9; Platelet Count 282 x1000/uL (130-400); RBC 4.13 m/cumm (4.00-5.20); RBC Distribution Width 13.5 % (11.7-14.6); White Blood Cell Count 7.84 k/cumm (4.4-10.8)
[2018-09-16 13:47] LABS: HCV RNA Detection Quantitative Undetected IU/mL (UNDECT)
== END 2018-09-14 17:04 ==
PROVIDERS: PCP Internal Medicine; Visit Provider Internal Medicine
DX: L50.9 Urticaria, unspecified (principal); F19.21 Other psychoactive substance dependence, in remission; Z11.59 Encounter for screening for other viral diseases
CPT/HCPCS: 36415; 87040; 85025; 87522

== ENCOUNTER 2018-11-10 11:02 | Emergency (ER) | payer MEDICARE, MEDICAID, SELFPAY ==
[2018-11-10 11:07] VITALS: BP 110/69; PULSE 98; RESP 18; TEMP 37.2; O2SAT 97
[2018-11-10] MEDS: diphenhydrAMINE 25 MG CAP 50 MG PO (11:33)
[2018-11-10] MEDS: predniSONE 20 MG TAB 60 MG PO (11:34)
[2018-11-10 12:56] LABS: Absolute Basophil Count 0.02 k/cumm (0.0-0.2); Absolute Eosinophil Count 0.27 k/cumm (0.0-0.7); Absolute Lymphocyte Count 1.68 k/cumm (1.2-3.4); Absolute Monocyte Count 0.54 k/cumm (0.11-0.7); Absolute Neutrophil Count 3.62 k/cumm (1.2-6.7); Basophils % 0.3; Eosinophils % 4.4; HCT 35.3 % (36.0-46.0); HGB 11.9 g/dL (12.0-15.5); Lymphocytes % 27.4; Mean Corp. HGB Concentration 33.7 g/dL (32.0-36.0); Mean Corpuscular Hemoglobin 30.6 pg (27.0-33.0); Mean Corpuscular Volume 90.7 fL (80-95); Mean Platelet Volume 10.3 fL (8.0-11.0); Monocytes % 8.8; Neutrophils % 59.1; Platelet Count 260 x1000/uL (130-400); RBC 3.89 m/cumm (4.00-5.20); RBC Distribution Width 13.2 % (11.7-14.6); White Blood Cell Count 6.13 k/cumm (4.4-10.8)
[2018-11-10 13:18] LABS: ALT 26 U/L (12-78); AST 17 U/L (15-37); Albumin 3.5 g/dL (3.4-5.0); Alkaline Phosphatase 50 U/L (46-116); Anion Gap 6.7 mmol/L (3-11); BUN 8 mg/dL (7-18); CO2 26.3 mmol/L (21.0-32.0); CREATININE 0.67 mg/dL (0.55-1.02); Calcium 8.4 mg/dL (8.5-10.1); Chloride 106 mmol/L (98-107); Glucose 90 mg/dL (70-100); NT-proBNP 318 pg/mL; Sodium 139 mmol/L (136-145); TSH (W/Ref FT4) 1.51 uIU/mL (0.358-3.74); Total Protein 6.8 g/dL (6.4-8.2)
[2018-11-10 13:22] LABS: Bilirubin, Total < 0.1 mg/dL (0.2-1.0)
[2018-11-10] MEDS: Ferrous Sulfate 325 MG TAB PO (13:49)
[2018-11-10 14:02] VITALS: BP 113/71; PULSE 74; RESP 12; TEMP 36.6; O2SAT 99
--- NOTE | 2018-11-10 14:02 | ED.GENADUL_ITS ---
Discharge Plan Disposition Patient Disposition: HOME Condition: Stable Discharge Details Chief Complaint: Allergic Clinical Impression: Swelling, Anemia Primary Care Provider: Oleg Thibodeaux ED Provider: Morena Story Home Meds and New Rx's Prescriptions: New ferrous sulfate 325 mg (65 mg iron) tablet 325 mg PO .every other day Qty: 14 RF: 0 prednisone 20 mg tablet 40 mg PO DAILY Qty: 8 RF: 0 Continued albuterol sulfate [AccuNeb] 0.63 MG/3 ML solution for nebulization 0.63 mg Inhalation PRN PRNRF: 0 methadone 10 MG/ML concentrate 110 mg PO DAILY RF: 0 Discharge Instructions Instructions: Iron Supplements (By mouth), Prednisone (By mouth), Anemia (ED), General Allergic Reaction (ED), Edema (ED) Additional Instructions: Please return immediately to the emergency department if you develop any new or worsening symptoms or if you become otherwise concerned. It is extremely important that you make an appointment to be seen as soon as possible by your primary care doctor in follow-up this visit. Referrals: Oleg Thibodeaux MD [Primary Care Provider] - Discharge Data Discharge Date/Time-TO BE ENTERED AT DEPARTURE: 11/10/18 14:03 Medical Decision Making Osiris Calle is a 33 y/o woman with h/o anxiety, ashtma, opiate use d/o now on methadone who presented to the emergency department with a sensation of generalized swelling. On exam Pt is well and non-toxic appearing. Trace edema of b/l ankles, no other edema appreciated. Unclear etiology of symptoms. Pt tearful, concerned that something is very wrong. Suspect dependent edema vs mild allergic reaction vs less likely metabolic/lyte derangement, other. Doubt CHF. Exam/hx not c/w PE, sepsis, DVT, anaphylaxis. Plan for screening labs, benadryl, steroids. Will monitor and reassess. Pt reports improvement after meds, but reports that swelling does not seem resolved to her. Her exam is unchanged, I do not appreciate swelling of her forehead, hands, or general body as she reports. Will continue to monitor. Pt sleeping. Labs non-diagnostic, show anemia. Pt reports that she feels better. Requesting d/c to home. Exam unchanged. I had a lengthy discussion with the pt re: RTED precautions, importance of outpt f/u with PCP, home care. Pt verbalized understanding of the plan and was amenable. Pt was discharged to home with clear plan for outpt f/u. All questions answered. Medical Records Medical records reviewed: Yes I reviewed the patient's medical records. Lab Data Lab results reviewed: Yes I reviewed the patient's lab results. Laboratory Tests Range/Units 11/10/18 11/10/18 12:48 12:48 WBC (4.4-10.8) k/cumm 6.13 RBC (4.00-5.20) m/cumm 3.89 L Hgb (12.0-15.5) g/dL 11.9 L Hct (36.0-46.0) % 35.3 L MCV (80-95) fL 90.7 MCH (27.0-33.0) pg 30.6 MCHC (32.0-36.0) g/dL 33.7 RDW (11.7-14.6) % 13.2 Plt Count (130-400) x1000/uL 260 MPV (8.0-11.0) fL 10.3 Immature Gran % 0.0 Neutrophils % 59.1 Lymphocytes % 27.4 Monocytes % 8.8 Eosinophils % 4.4 Basophils % 0.3 Absolute Neutrophils (1.2-6.7) k/cumm 3.62 Absolute Lymphocytes (1.2-3.4) k/cumm 1.68 Absolute Monocytes (0.11-0.7) k/cumm 0.54 Absolute Eosinophils (0.0-0.7) k/cumm 0.27 Absolute Basophils (0.0-0.2) k/cumm 0.02 Sodium (136-145) mmol/L 139 Potassium (3.5-5.1) mmol/L 4.0 Chloride (98-107) mmol/L 106 Carbon Dioxide (21.0-32.0) mmol/L 26.3 Anion Gap (3-11) mmol/L 6.7 BUN (7-18) mg/dL 8 Creatinine (0.55-1.02) mg/dL 0.67 Estimated GFR/1.73 m2 (mL/min/1.73m2) >= 60.00 Glucose (70-100) mg/dL 90 Calcium (8.5-10.1) mg/dL 8.4 L Total Bilirubin (0.2-1.0) mg/dL < 0.1 L AST (15-37) U/L 17 ALT (12-78) U/L 26 Alkaline Phosphatase (46-116) U/L 50 NT-Pro-B Natriuret Pep ( - 299) pg/mL 318 H Total Protein (6.4-8.2) g/dL 6.8 Albumin (3.4-5.0) g/dL 3.5 TSH (0.358-3.74) uIU/mL 1.51 HPI General Mode of arrival: ambulatory . Date/Time Provider Initiated Documentation: 11/10/18 11:09 . Limitations to Documentation: no limitations . Information obtained by: patient, RN notes reviewed and old records reviewed . HPI Narrative: Osiris Calle is a 33-year-old woman with a history of asthma, anxiety, drug abuse in the past now on methadone presenting to the emergency department with swelling. Patient reports that she noticed mild swelling around her ankles 3 days ago. She reports that since that time she has noticed swelling of her whole body including her legs, abdomen, hands, and forehead. Patient reports that she has had similar swelling in the past when she has taken certain medications, including ibuprofen. Patient reports that she has had some dental pain recently, and began taking ibuprofen 2 days ago. She denies itching, rash, fever, shortness of breath, cough, recent illness, other known exposure. She reports chronic sciatica of her left leg, otherwise denies pain. No drooling or swelling of the lips or mouth. No recent travel. Has been eating and drinking as usual. Related Data Home Medications Medication Instructions Recorded Confirmed albuterol sulfate [AccuNeb] 0.63 mg INHALATION PRN PRN 09/22/12 11/10/18 methadone 110 mg PO DAILY 12/03/17 11/10/18 ferrous sulfate 325 mg PO .every other day #14 tab 11/10/18 prednisone 40 mg PO DAILY #8 tab 11/10/18 Previous Rx's Medication Instructions Recorded ferrous sulfate 325 mg PO .every other day #14 tab 11/10/18 prednisone 40 mg PO DAILY #8 tab 11/10/18 Allergies Allergy/AdvReac Type Severity Reaction Status Date / Time clindamycin Allergy Severe Swelling/Ed Unverified 11/10/18 11:10 toya ibuprofen Allergy Intermediate Swelling/Ed Unverified 11/10/18 11:10 toya indomethacin Allergy Intermediate Swelling/Ed Unverified 11/10/18 11:10 toya latex Allergy Mild Itching Unverified 11/10/18 11:10 Latex, Natural Rubber Allergy Mild Skin Rash Unverified 11/10/18 11:10 General Stated Complaint: Allergic NAVID: 3 Review of Systems Review of Systems Constitutional: denies fevers Eyes: denies eye pain ENT: denies facial pain, sore throat, reports dental pain Cardiovascular: denies chest pain, reports edema Respiratory: denies SOB, cough GI: denies abdominal pain, vomiting, diarrhea : denies flank pain MSK: denies back pain, neck pain, arthralgias, myalgias, reports chronic sciatica Skin: denies rash Neuro: denies headaches, numbness, weakness PFSH Medical History Soft tissue abscess (Acute) Social History Smoking/Tobacco Use Status: Current every day Tobacco Type: cigarettes Alcohol Intake: never Drug use: Occasionally 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 Do you feel safe at home: Yes Do you feel safe in your relationship?: Yes Exam Narrative Exam Narrative: Constitutional: well and [id number], pleasant, conversing normally HENT: head atraumatic/normocephalic/normal inspection, mucous membranes moist, dental caries, no gingival erythema or edema, no other intraoral lesion, no edema of the oropharynx, normal voice, no drooling or pooling of secretions, no edema of the face Eyes: conjunctiva normal, sclera normal, pupils 3mm b/l Neck: no stridor, normal ROM, trachea midline Chest: normal inspection Resp: normal work of breathing, LCTAB Cardio: normal rate, normal rhythm, no murmur appreciated GI: abdomen soft, non-tender, non-distended Back: normal inspection, no rash Skin: warm, dry, normal color, no rash Neuro: alert, not altered, grossly non-focal, normal tone Ext: trace non-pitting edema b/l ankles, no posterior calf TTP, no rash to the extremities, no other edema of the extremities apparent Psych: normal mood, normal affect, normal behavior Course Vital Signs Temperature 37.2 C 11/10/18 11:07 Pulse 98 H 11/10/18 11:07 Respiratory Rate 18 11/10/18 11:07 Blood Pressure 110/69 11/10/18 11:07 Pulse Oximetry 97 11/10/18 11:07 Temperature 37.2 C 11/10/18 11:07 Temperature Source Temporal Artery Scan 11/10/18 11:07 Pulse 98 H 11/10/18 11:07 Respiratory Rate 18 11/10/18 11:07 Blood Pressure 110/69 11/10/18 11:07 Blood Pressure Position Sitting 11/10/18 11:07 Pulse Oximetry 97 11/10/18 11:07 Oxygen Delivery Method Room Air 11/10/18 11:07 Oxygen Flow Rate 0 11/10/18 11:07 Pain Level 5 11/10/18 11:07
== END 2018-11-10 14:03 | disposition home or self-care (01) ==
PROVIDERS: Emergency Provider Student in an Organized Health Care Education/Training Program; PCP Internal Medicine
DX: T78.40XA Allergy, unspecified, initial encounter (principal); R60.1 Generalized edema; D64.9 Anemia, unspecified; F41.9 Anxiety disorder, unspecified
CPT/HCPCS: 36415; 80053; 99283; 83880; 84443; 85025; J7512

== ENCOUNTER 2019-01-01 02:15 | Emergency (ER) | payer MEDICARE, MEDICAID, SELFPAY ==
[2019-01-01 02:16] VITALS: BP 133/92; PULSE 122; RESP 20; TEMP 37.1; O2SAT 99
--- NOTE | 2019-01-01 02:26 | ED.GENADUL_ITS ---
Discharge Plan Disposition Patient Disposition: HOME Condition: Good Discharge Details Chief Complaint: GenMedical Clinical Impression: Coccygeal contusion Primary Care Provider: Oleg Thibodeaux ED Provider: Armando Camargo Home Meds and New Rx's Prescriptions: New lidocaine [Lidoderm] 1 PATCH patch 1 patch Topical Q24H Qty: 4 RF: 0 No Action albuterol sulfate [AccuNeb] 0.63 MG/3 ML solution for nebulization 0.63 mg Inhalation PRN PRNRF: 0 methadone 10 MG/ML concentrate 110 mg PO DAILY RF: 0 ferrous sulfate 325 mg (65 mg iron) tablet 325 mg PO .every other day Qty: 14 RF: 0 prednisone 20 mg tablet 40 mg PO DAILY Qty: 8 RF: 0 Discharge Instructions Instructions: Contusion in Adults (ED) Additional Instructions: Please take 1000 mg of Tylenol every 6 hours for pain. Please use Lidoderm patches as directed. Please use extra cushions when you sit. [id number] at local pharmacies you can purchase donut shaped pillows that will help give significant relief to your coccyx when you are trying to sit. If you notice any worsening of your symptoms, or any new symptoms such as vomiting, diarrhea, fever, chills, shortness of breath, chest pain, numbness, weakness, or fainting , please return immediately to the emergency department for reevaluation. Please follow up with your primary care provider as soon as possible for reassessment and reevaluation. As always, it was a pleasure participating in your medical care today. Referrals: Oleg Thibodeaux MD [Primary Care Provider] - Medical Decision Making This is a pleasant 33-year-old female who presents today for evaluation of buttock pain. Unfortunately while she was on a rope swing she slipped off and landed on her buttock earlier this evening. It is made worse with movement. Not improved with Tylenol or Motrin. Exam demonstrates reproducible tenderness over the sacrum and coccyx. No pain over the hips, greater trochanters, or wings of the pelvis. No pain in the thoracic or lumbar spine. No pain in the legs, no acute numbness or tingling. Suspect sacral or coccyx contusion or mild fracture. We will give Lidoderm patch, x-ray and reassess. 3 AM X-rays negative for any evidence of acute fracture. Patient was given Lidoderm patch and is feeling better. Donut seat cushion was also given for comfort for sitting. I have extensively reviewed the treatment plan and discharge instructions with the patient. I have addressed all patient concerns at this time. The patient was made aware of what symptoms to monitor for that would warrant a return to the emergency department. Discussed the plan with the patient, they demonstrate verbal understanding and agreement with our assessment and plan at this time. FINDINGS: Bones/joints: Normal. No acute fracture. Soft tissues: Normal. IMPRESSION: No acute findings. Thank you for allowing us to participate in the care of your patient. Dictated and Authenticated by: Corbin Pappas MD 01/01/2019 3:00 AM Eastern Time ([place] & [place]) HPI General Date/Time Provider Initiated Documentation: 01/01/19 02:16 . HPI Narrative: This is a 33-year-old female who presents today for evaluation of buttock pain. Patient states that she was on a rope swing when she slipped off and landed on her buttock. Pain is located notably over the sacrum and coccyx. She denies any hip pain, or significant acute leg pain or back pain. She denies any new numbness tingling or weakness. She has taken Tylenol and Motrin prior to arrival and this is not helped her pain. She denies any hematochezia or other complaints. No other modifying factors. Pain is made worse with movement, and sitting. Related Data Home Medications Medication Instructions Recorded Confirmed albuterol sulfate [AccuNeb] 0.63 mg INHALATION PRN PRN 09/22/12 11/10/18 methadone 110 mg PO DAILY 12/03/17 11/10/18 ferrous sulfate 325 mg PO .every other day #14 tab 11/10/18 prednisone 40 mg PO DAILY #8 tab 11/10/18 lidocaine [Lidoderm] 1 patch TOPICAL Q24H #4 patch 01/01/19 Previous Rx's Medication Instructions Recorded ferrous sulfate 325 mg PO .every other day #14 tab 11/10/18 prednisone 40 mg PO DAILY #8 tab 11/10/18 lidocaine [Lidoderm] 1 patch TOPICAL Q24H #4 patch 01/01/19 Allergies Allergy/AdvReac Type Severity Reaction Status Date / Time clindamycin Allergy Severe Swelling/Ed Unverified 11/10/18 11:10 toya ibuprofen Allergy Intermediate Swelling/Ed Unverified 11/10/18 11:10 toya indomethacin Allergy Intermediate Swelling/Ed Unverified 11/10/18 11:10 toya latex Allergy Mild Itching Unverified 11/10/18 11:10 Latex, Natural Rubber Allergy Mild Skin Rash Unverified 11/10/18 11:10 General Stated Complaint: GenMedical NAVID: 3 Review of Systems Review of Systems All systems reviewed & are unremarkable except as noted in HPI and below PFSH Social History Smoking/Tobacco Use Status: Current every day Tobacco Type: cigarettes Alcohol Intake: never Drug use: Occasionally 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 3.ENT: Atraumatic external nose and ears. Moist MM. Neck: Symmetric, trachea midline, No thyromegaly. 4.CVS: +S1/S2, No murmurs or gallops. Peripheral pulses 2+ and equal in all extremities. Brisk capillary refill in all extremities. 5.RESP: Unlabored respiratory effort. Clear to auscultation bilaterally. No wheezes rales or rhonchi 6.GI: Soft, Nontender/Nondistended, No hepatosplenomegaly. No guarding or rebound. 7.MSK: Normocephalic/Atraumatic, Extremities w/o deformity. No cyanosis or clubbing, Normal movement of all extremities. Evaluation of the patient's buttock was performed with female nurse at bedside, Amada watson. Minimal bruising over the left buttock. Notable reproducible tenderness over the distal aspect of the sacrum and coccyx. No deformity. No hematochezia. No other evidence of trauma. Palpation of the greater trochanter of the femur and the hips and the alar wings demonstrate no tenderness. No deformity. 8.Skin: Warm, Dry. No rashes or lesions. 9.Neuro: redeye gunner II-XII grossly intact. Sensation grossly intact, no focal neurologic deficits. 10.Psych: (AAO) x3. Appropriate mood and affect Course Vital Signs Temperature 37.1 C 01/01/19 02:16 Pulse 122 H 01/01/19 02:16 Respiratory Rate 20 01/01/19 02:16 Blood Pressure 133/92 H 01/01/19 02:16 Pulse Oximetry 99 01/01/19 02:16 Temperature 37.1 C 01/01/19 02:16 Temperature Source Tympanic 01/01/19 02:16 Pulse 122 H 01/01/19 02:16 Respiratory Rate 20 01/01/19 02:16 Respiratory Effort 01/01/19 02:21 Blood Pressure 133/92 H 01/01/19 02:16 Pulse Oximetry 99 01/01/19 02:16 Oxygen Delivery Method Room Air 01/01/19 02:16 Oxygen Flow Rate 0 01/01/19 02:16 Pain Level 8 01/01/19 02:16
[2019-01-01 02:47] VITALS: RESP 20
--- NOTE | 2019-01-01 02:47 | DI.RAD_ITS ---
SYMPTOM/DIAGNOSIS: FELL, PAIN SACRUM AND COCCYX: There is no evidence of fracture. The SI joints and pubic symphysis appear intact. IMPRESSION: Negative sacrum and coccyx.
[2019-01-01] MEDS: Lidocaine 5% Patch 1 PATCH TP (02:54)
--- NOTE | 2019-01-01 03:00 | DI.VRAD_ITS ---
EXAM: XR Sacrum and Coccyx, 2 or More Views EXAM DATE/TIME: 01/01/2019 2:26 AM CLINICAL HISTORY: 33 years old, female; Injury or trauma; Fall; Initial encounter; Blunt trauma (contusions or hematomas); Injury date: 01/01/2019 TECHNIQUE: Imaging protocol: XR of the sacrum and coccyx, 2 or more views. COMPARISON: US soft tiss extremity/groin 06/08/2018 9:15 AM FINDINGS: Bones/joints: Normal. No acute fracture. Soft tissues: Normal. IMPRESSION: No acute findings. Dictated and Authenticated by: Corbin Pappas MD. Ordering:TABITHA Roberts MD
[2019-01-01 03:08] VITALS: BP 133/92; PULSE 122; RESP 20; O2SAT 99
== END 2019-01-01 03:08 | disposition home or self-care (01) ==
LOC: ER 03:00
PROVIDERS: Emergency Provider Student in an Organized Health Care Education/Training Program; PCP Internal Medicine
DX: S30.0XXA Contusion of lower back and pelvis, initial encounter (principal); W09.1XXA Fall from playground swing, initial encounter
CPT/HCPCS: 81025; 99283; 72220

== ENCOUNTER 2019-01-11 09:56 | Emergency (ER) | payer MEDICARE, MEDICAID, SELFPAY ==
--- NOTE | 2019-01-11 10:03 | NUR.NOTE ---
Nursing Note: pt was seen her 8 days ago after going off of a rope swing into shallow water pt is hear today pecause she has had increasing rib pain since incident. pt also states that she needs a work note for her snf/community service as she missed several days for the past week
[2019-01-11 10:05] VITALS: BP 132/85; PULSE 78; RESP 15; TEMP 37.1; O2SAT 100
--- NOTE | 2019-01-11 10:14 | DI.RAD_ITS ---
SYMPTOM/DIAGNOSIS: LT SIDED CHEST PAIN S/P FALL PA AND LATERAL CHEST: 01/11 The heart is normal in size. The lungs are clear. The mediastinal structures and pleura appear intact. CONCLUSION: Normal chest.
--- NOTE | 2019-01-11 10:15 | W.ED.GENAD ---
Discharge Plan Disposition Patient Disposition: HOME Condition: Stable Discharge Details Chief Complaint: Orthopedic Clinical Impression: Contusion of rib on left side Primary Care Provider: Oleg Thibodeaux ED Provider: Corbin Oakley Home Meds and New Rx's Prescriptions: Continued albuterol sulfate [AccuNeb] 0.63 MG/3 ML solution for nebulization 0.63 mg Inhalation PRN PRNRF: 0 methadone 10 MG/ML concentrate 110 mg PO DAILY RF: 0 ferrous sulfate 325 mg (65 mg iron) tablet 325 mg PO .every other day Qty: 14 RF: 0 lidocaine [Lidoderm] 1 PATCH patch 1 patch Topical Q24H Qty: 4 RF: 0 Discharge Instructions Additional Instructions: follow up with your primary care provider within 1-2 weeks if you have new symptoms such as fevers or severe abdominal pain return to the emergency department Stand Alone Forms: Work Release Medical Decision Making 33 yo female comes in with left sided chest pain under the left axilla since falling off a rope swing over a week ago. Was seen in the ED and had pain in sacrum with negative xrays. Still has some pain here but is improving but since d/c has had pain in above stated area. No fevers or chills. Has reproducible pain under the left axillar without rashes or erythema. Suspect rib contusion but will xray to eval for possible fx and less likely ptx given normal lung exam xray unremarkable, will d/c with lidocaine patch and advised f/u with pcp Differential Diagnosis contusion, fx, ptx Medical Records Medical records reviewed: Yes I reviewed the patient's medical records. Imaging Data Radiologic Study: Attestation: I personally reviewed and interpreted this imaging study as follows: Imaging: X-Ray Radiologist's impression: no acute findings per ems HPI General Mode of arrival: ambulatory. Date/Time Provider Initiated Documentation: 01/11/19 09:59. Limitations to Documentation: no limitations. Information obtained by: patient. History of Present Illness 33 year old F presents to the emergency department with the chief complaint of left sided chest pain, described as moderate, Quality is described as aching, Patient reports no radiation. Patient started experiencing this day(s) (8) and it has been constant. Patient did receive the following treatments prior to arrival, none Related Data Home Medications Medication Instructions Recorded Confirmed albuterol sulfate [AccuNeb] 0.63 mg INHALATION PRN PRN 09/22/12 01/11/19 methadone 110 mg PO DAILY 12/03/17 01/11/19 ferrous sulfate 325 mg PO .every other day #14 tab 11/10/18 01/11/19 lidocaine [Lidoderm] 1 patch TOPICAL Q24H #4 patch 01/11/19 Previous Rx's Medication Instructions Recorded ferrous sulfate 325 mg PO .every other day #14 tab 11/10/18 lidocaine [Lidoderm] 1 patch TOPICAL Q24H #4 patch 01/11/19 Allergies Allergy/AdvReac Type Severity Reaction Status Date / Time clindamycin Allergy Severe Swelling/Ed Unverified 01/11/19 10:07 toya ibuprofen Allergy Intermediate Swelling/Ed Unverified 01/11/19 10:07 toya indomethacin Allergy Intermediate Swelling/Ed Unverified 01/11/19 10:07 toya latex Allergy Mild Itching Unverified 01/11/19 10:07 Latex, Natural Rubber Allergy Mild Skin Rash Unverified 01/11/19 10:07 General Stated Complaint: Orthopedic NAVID: 5 Review of Systems Review of Systems All systems reviewed & are unremarkable except as noted in HPI and below Constitutional Denies chills, Denies fever(s) and Denies weakness Respiratory Denies cough Gastrointestinal Denies abdominal pain, Denies nausea and Denies vomiting Neurologic Denies weakness [facility] Social History Smoking/Tobacco Use Status: Current every day Tobacco Type: cigarettes Alcohol Intake: never Drug use: Occasionally 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 Do you feel safe at home: Yes Do you feel safe in your relationship?: Yes Exam Const General: no acute distress Orientation: alert HENMT Head: normal to inspection Ears: external ears normal General nose exam: external nose normal Mouth: moist mucous membranes Eyes General: appearance normal, both eyes and all related structures Neck Neck: normal visual inspection Chest Chest: normal inspection of the chest Resp Effort & Inspection: normal respiratory effort and able to speak in complete sentences Cardio Rate: regular rate Skin General skin exam: no rashes or lesions noted Neuro General: alert and oriented x3 Extrem General: normal to inspection Psych Mental Status: mental status grossly normal Course Vital Signs Temperature 37.1 C 01/11/19 10:05 Pulse 78 01/11/19 10:05 Respiratory Rate 15 01/11/19 10:05 Blood Pressure 132/85 01/11/19 10:05 Pulse Oximetry 100 01/11/19 10:05 Temperature 37.1 C 01/11/19 10:05 Temperature Source Skin 01/11/19 10:05 Pulse 78 01/11/19 10:05 Respiratory Rate 15 01/11/19 10:05 Blood Pressure 132/85 01/11/19 10:05 Blood Pressure Position Sitting 01/11/19 10:05 Pulse Oximetry 100 01/11/19 10:05 Oxygen Delivery Method Room Air 01/11/19 10:05 Oxygen Flow Rate 0 01/11/19 10:05 Pain Level 5 01/11/19 10:05
[2019-01-11] MEDS: Lidocaine 5% Patch 1 PATCH TP (10:27)
[2019-01-11] MEDS: Acetaminophen 500 MG TAB 1000 MG PO (10:27)
--- NOTE | 2019-01-11 10:34 | NUR.NOTE ---
Nursing Note: pt walked to DI, steady gait noted
[2019-01-11 11:07] VITALS: BP 146/96; PULSE 80; RESP 15; O2SAT 97
== END 2019-01-11 11:10 | disposition home or self-care (01) ==
PROVIDERS: Emergency Provider Emergency Medicine; PCP Internal Medicine
DX: S20.222A Contusion of left back wall of thorax, initial encounter (principal); W09.1XXA Fall from playground swing, initial encounter; Z02.79 Encounter for issue of other medical certificate
CPT/HCPCS: 99283; 71046

== ENCOUNTER 2019-01-29 09:58 | Emergency (ER) | payer MEDICARE, MEDICAID, SELFPAY ==
[2019-01-29 10:08] VITALS: BP 124/81; PULSE 81; RESP 15; TEMP 36.7; O2SAT 98
--- NOTE | 2019-01-29 10:46 | W.ED.GENAD ---
Discharge Plan Disposition Patient Disposition: HOME Condition: Stable Discharge Details Chief Complaint: DentalOral Clinical Impression: URI (upper respiratory infection), Abscess, dental Primary Care Provider: Oleg Thibodeaux ED Provider: Taj Martinez Home Meds and New Rx's Prescriptions: New penicillin V potassium 500 mg tablet 500 mg PO QID 7 Days Qty: 28 RF: 0 Continued albuterol sulfate [AccuNeb] 0.63 MG/3 ML solution for nebulization 0.63 mg Inhalation PRN PRNRF: 0 methadone 10 MG/ML concentrate 110 mg PO DAILY RF: 0 ferrous sulfate 325 mg (65 mg iron) tablet 325 mg PO .every other day Qty: 14 RF: 0 lidocaine [Lidoderm] 1 PATCH patch 1 patch Topical Q24H Qty: 4 RF: 0 Discharge Instructions Instructions: Dental Abscess (ED), Upper Respiratory Infection (ED) Additional Instructions: Please take your anabolic as prescribed and do not save antibiotics and take this for the entire 7-day course to ensure resolution of your infection. It is recommended that you follow-up with a dentist for further imaging and definitive care of your dental pain. Feel free to follow-up with your primary care provider for reassessment of your upper respiratory tract infection if it does not improve in the next week. Referrals: Oleg Thibodeaux MD [Primary Care Provider] - (As needed for reassessment) Discharge Data Discharge Date/Time-TO BE ENTERED AT DEPARTURE: 01/29/19 11:15 Medical Decision Making Patient presenting the emergency department for chief complaint of dental pain. Patient states this been going on past couple days but has noticed some facial swelling this morning along with increase in pain. Physical exam shows partially fractured tooth #2 with surrounding erythema to the gumline and tenderness to the superior aspect of the gumline. There is very minimal swelling to the face. No obvious palpable abscess but this is of concern. Exam is otherwise unremarkable for any life-threatening infection, systemic illness, Marcial's angina, peritonsillar abscess, retropharyngeal abscess. Patient also has symptoms consistent with upper respiratory tract infection but again I presume these are viral in nature no significant physical exam findings were noted given concern for infection patient placed on penicillin. Return precautions discussed. After discussion of diagnosis and plan of care patient has no further needs, questions, or concerns and states clear understanding to return to the emergency department for any worsening symptoms. HPI General Mode of arrival: ambulatory. Date/Time Provider Initiated Documentation: 01/29/19 09:58. Limitations to Documentation: no limitations. Information obtained by: patient. History of Present Illness 33 year old F presents to the emergency department with the chief complaint of Dental pain, facial swelling, upper respiratory tract infection, described as moderate, with intensity rated at 3. Quality is described as aching, and is localized to the mouth. Patient started experiencing this day(s) (1) and it has been constant. No relieving factors improve symptom(s), Patient notes no other symptoms.. Patient did receive the following treatments prior to arrival, NSAID Related Data Home Medications Medication Instructions Recorded Confirmed albuterol sulfate [AccuNeb] 0.63 mg INHALATION PRN PRN 09/22/12 01/11/19 methadone 110 mg PO DAILY 12/03/17 01/11/19 ferrous sulfate 325 mg PO .every other day #14 tab 11/10/18 01/11/19 lidocaine [Lidoderm] 1 patch TOPICAL Q24H #4 patch 01/11/19 penicillin V potassium 500 mg PO QID 7 Days #28 tab 01/29/19 Previous Rx's Medication Instructions Recorded ferrous sulfate 325 mg PO .every other day #14 tab 11/10/18 lidocaine [Lidoderm] 1 patch TOPICAL Q24H #4 patch 01/11/19 penicillin V potassium 500 mg PO QID 7 Days #28 tab 01/29/19 Allergies Allergy/AdvReac Type Severity Reaction Status Date / Time clindamycin Allergy Severe Swelling/Ed Unverified 01/11/19 10:07 toya ibuprofen Allergy Intermediate Swelling/Ed Unverified 01/11/19 10:07 toya indomethacin Allergy Intermediate Swelling/Ed Unverified 01/11/19 10:07 toya latex Allergy Mild Itching Unverified 01/11/19 10:07 Latex, Natural Rubber Allergy Mild Skin Rash Unverified 01/11/19 10:07 General Stated Complaint: DentalOral NAVID: 3 Review of Systems Constitutional Denies chills and Denies fever(s) ENT Reports as per HPI, Denies change in voice, Reports dental pain, Denies dysphagia, Denies throat swelling and Denies tongue swelling Cardiovascular Denies chest pain and Denies dyspnea Respiratory Denies dyspnea, Denies stridor and Denies wheezing Gastrointestinal Denies abdominal pain, Denies dysphagia, Denies nausea and Denies vomiting Integumentary/Breasts Denies rash Allergic/Immunologic Denies throat swelling, Denies tongue swelling and Denies wheezing [facility] Social History Smoking/Tobacco Use Status: Current every day Tobacco Type: cigarettes Alcohol Intake: never Drug use: Occasionally 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 Do you feel safe at home: Yes Do you feel safe in your relationship?: Yes Exam Const General: cooperative Orientation: alert, awake and oriented x3 Limitations: mental status not altered HENMT Head: normal to inspection, normocephalic and atraumatic Ears: hearing grossly normal bilaterally, normal mastoids bilaterally and no periauricular adenopathy General nose exam: external nose normal Mouth: oropharynx normal, no drooling, no muffled voice, normal tongue and no trismus Teeth and gingiva: caries, poor dentition and other (Partially fractured tooth #2 with erythema surrounding the base of the tooth) Throat: posterior oropharynx normal, tonsils normal and uvula midline Eyes General: appearance normal, both eyes and all related structures Pupils: PERRL Neck Neck: normal visual inspection, full ROM, no lymphadenopathy, no meningeal signs, trachea midline, supple, no anterior neck swelling and no midline deformity Resp Effort & Inspection: normal respiratory effort and able to speak in complete sentences Course Vital Signs Temperature 36.7 C 01/29/19 10:08 Pulse 81 01/29/19 10:08 Respiratory Rate 15 01/29/19 10:08 Blood Pressure 124/81 01/29/19 10:08 Pulse Oximetry 98 01/29/19 10:08 Temperature 36.7 C 01/29/19 10:08 Temperature Source Oral 01/29/19 10:08 Pulse 81 01/29/19 10:08 Respiratory Rate 15 01/29/19 10:08 Blood Pressure 124/81 01/29/19 10:08 Blood Pressure Position Sitting 01/29/19 10:08 Pulse Oximetry 98 01/29/19 10:08 Oxygen Delivery Method Room Air 01/29/19 10:08 Oxygen Flow Rate 0 01/29/19 10:08
== END 2019-01-29 11:15 | disposition home or self-care (01) ==
PROVIDERS: Emergency Provider Nurse Practitioner Family; PCP Internal Medicine
DX: J06.9 Acute upper respiratory infection, unspecified (principal); K04.7 Periapical abscess without sinus
CPT/HCPCS: 99283

== ENCOUNTER 2019-03-01 00:42 | Outpatient (CLI) | payer MEDICARE, MEDICAID, SELFPAY ==
--- NOTE | 2019-03-01 12:00 | DI.MRI_ITS ---
EXAM: MR LUMBAR SPINE WO CLINICAL HISTORY: LUMBAR RADICULOPATHY LT M54.16. TECHNIQUE: Multiplanar multisequence MRI of the Lumbar spine was performed. FINDINGS: Bones: The last intervertebral disc space is designated the L5/S1 level for the numbering purpose of this examination. The vertebral body heights are well maintained. Alignment is satisfactory. There are mild signal endplate changes at L2-3, L3-4, and L4-L5. Cord: The conus tip ends at the T12 level. It is of normal size and signal intensity. T12-L1: No disc herniations or bulges are present. L1-2: No disc herniations or bulges are present. L2-3: No disc herniations or bulges are present. L3-4: No disc herniations or bulges are present. Mild degenerative changes of the facets are present . No significant central spinal canal or neural foraminal stenosis is present. L4-5: There is a mild diffuse disc bulge. Mild narrowing of the central spinal canal is noted. The re are mild degenerative changes of the facet joints. No significant neural foraminal stenosis is pr esent. L5-S1: No disc herniations or bulges are present. Mild degenerative facet arthropathy is present. N o significant central spinal canal or neural foraminal stenosis is present. Soft tissues: The visualized SI joints and sacrum are well maintained. The paraspinal soft tissues ar e unremarkable. IMPRESSION: Multilevel degenerative changes in the lumbar spine as described above. Mild narrowing of the centra l spinal canal is noted at L4-L5. No significant neural foraminal stenosis is seen in the lumbar spi ne.
== END 2019-03-01 01:02 ==
PROVIDERS: PCP Internal Medicine; Visit Provider Internal Medicine
DX: M54.16 Radiculopathy, lumbar region (principal); M47.26 Other spondylosis with radiculopathy, lumbar region; M51.16 Intervertebral disc disorders with radiculopathy, lumbar region
CPT/HCPCS: 72148

== ENCOUNTER → 2019-04-19 08:34 | Outpatient (BNVA) | payer MEDICARE, MEDICAID, SELFPAY | PROVIDERS: PCP Internal Medicine; Referring Provider Internal Medicine; Visit Provider Psychiatry & Neurology Neurology | DX: R53.83 Other fatigue (principal); R49.0 Dysphonia; H57.11 Ocular pain, right eye; R20.2 Paresthesia of skin; M79.605 Pain in left leg | CPT/HCPCS: 99205; 99215 ==

== ENCOUNTER 2019-05-02 12:13 | Outpatient (REF) | payer MEDICARE, MEDICAID, SELFPAY ==
[2019-05-03 13:17] LABS: Chlamydia Result Negative (Negative)
[2019-05-03 15:15] LABS: GC Result Negative (Negative)
== END 2019-05-02 12:33 ==
LOC: LBN 12:13
PROVIDERS: PCP Internal Medicine; Visit Provider Nurse Practitioner Family
DX: Z11.3 Encounter for screening for infections with a predominantly sexual mode of transmission (principal)
CPT/HCPCS: 87491; 87591

== ENCOUNTER 2019-05-06 15:41 | Outpatient (CLI) | payer MEDICARE, MEDICAID, SELFPAY ==
[2019-05-06 16:10] LABS: HCT 40.9 % (36.0-46.0); HGB 13.4 g/dL (12.0-15.5); Mean Corp. HGB Concentration 32.8 g/dL (32.0-36.0); Mean Corpuscular Hemoglobin 30.5 pg (27.0-33.0); Mean Platelet Volume 10.1 fL (8.0-11.0); Platelet Count 307 x1000/uL (130-400); RBC Distribution Width 13.8 % (11.7-14.6); White Blood Cell Count 7.18 k/cumm (4.4-10.8)
[2019-05-06 17:57] LABS: Vitamin B12 654 pg/mL (193-986)
[2019-05-09 08:26] LABS: Vitamin D 25 Total 21.9 ng/ml (30-100)
[2019-05-09 14:22] LABS: ANA Interpretation Negative (Negative)
[2019-05-09 15:52] LABS: Albumin 59.5 % (55.8-66.1); Total Protein 7.1 g/dL (6.3-8.2)
== END 2019-05-06 16:01 ==
PROVIDERS: PCP Internal Medicine; Visit Provider Psychiatry & Neurology Neurology
DX: E55.9 Vitamin D deficiency, unspecified (principal); G35 Multiple sclerosis; G62.9 Polyneuropathy, unspecified; R53.83 Other fatigue; H46.9 Unspecified optic neuritis
CPT/HCPCS: 36415; 82306; 85027; 82607; 84165; 86038

== ENCOUNTER 2019-05-26 17:25 | Emergency (ER) | payer MEDICARE, MEDICAID, SELFPAY ==
--- NOTE | 2019-05-26 17:30 | ED.GENADUL_ITS ---
Discharge Plan Discharge Details Chief Complaint: PsychEval Primary Care Provider: Oleg Thibodeaux ED Provider: Mj Story Home Meds and New Rx's Prescriptions: No Action gabapentin 600 mg tablet 1,200 mg PO TID Qty: 180 RF: 3 Flovent HFA 110 mcg/actuation HFA aerosol inhaler 1 puff IH BID RF: 0 albuterol sulfate [Ventolin HFA] 90 mcg/actuation HFA aerosol inhaler 2 puff IH Q6H PRNRF: 0 alprazolam 0.5 mg tablet,disintegrating 0.5 mg PO ONCE Qty: 2 RF: 0 albuterol sulfate [AccuNeb] 0.63 MG/3 ML solution for nebulization 0.63 mg Inhalation PRN PRNRF: 0 methadone 10 MG/ML concentrate 110 mg PO DAILY RF: 0 lidocaine [Lidoderm] 1 PATCH patch 1 patch Topical Q24H Qty: 4 RF: 0 Discharge Data Discharge Date/Time-TO BE ENTERED AT DEPARTURE: 05/26/19 17:30 Medical Decision Making Patient wishes to leave against my advise at this time to smoke cigarettes. She is not suicidal and has decisional making capacity to leave against my advice at this time. Encouraged to return at any time for further work-up and treatment. I had a discussion with the patient about my diagnostic/treatment plan. Patient declines plan and wishes to leave against medical advise at this time. I again explained my concerns and urged the patient to stay for treatment as outlined. Patient continued to refuse. I then discussed potential less ideal alternatives to diagnostic/treatment plan as outlines and patient refused. I recommended that the patient follow-up with primary care physician ENZO or return to the Emergency Department at any time for further treatment. HPI General Mode of arrival: EMS . Date/Time Provider Initiated Documentation: 05/26/19 17:28 . Limitations to Documentation: no limitations . Information obtained by: patient . HPI Narrative: 33-year-old female with history of anxiety and depression, sent from primary care office with concern for self-injurious behavior and exacerbation of her depression. Patient states that she feels overwhelmed and that she has inflicted superficial wounds to her right arm to help relieve her stress. Symptoms are severe. She denies suicidality. Related Data Home Medications Medication Instructions Recorded Confirmed albuterol sulfate [AccuNeb] 0.63 mg INHALATION PRN PRN 09/22/12 05/02/19 methadone 110 mg PO DAILY 12/03/17 05/26/19 lidocaine [Lidoderm] 1 patch TOPICAL Q24H #4 patch 01/11/19 05/26/19 albuterol sulfate 90 mcg/actuation 2 puff IH Q6H PRN 03/22/19 05/26/19 aerosol inhaler fluticasone propionate 110 1 puff IH BID 03/22/19 05/26/19 mcg/actuation HFA aerosol inhaler gabapentin 600 mg tablet 1,200 mg PO TID #180 tab 04/19/19 05/26/19 alprazolam 0.5 mg disintegrating 0.5 mg PO ONCE #2 tab 04/25/19 05/26/19 tablet Previous Rx's Medication Instructions Recorded lidocaine [Lidoderm] 1 patch TOPICAL Q24H #4 patch 01/11/19 gabapentin 600 mg tablet 1,200 mg PO TID #180 tab 04/19/19 alprazolam 0.5 mg disintegrating 0.5 mg PO ONCE #2 tab 04/25/19 tablet Allergies Allergy/AdvReac Type Severity Reaction Status Date / Time clindamycin Allergy Severe Swelling/Ed Unverified 05/26/19 17:42 toya ibuprofen Allergy Intermediate Swelling/Ed Unverified 05/26/19 17:42 toya indomethacin Allergy Intermediate Swelling/Ed Unverified 05/26/19 17:42 toya latex Allergy Mild Itching Unverified 05/26/19 17:42 Latex, Natural Rubber Allergy Mild Skin Rash Unverified 05/26/19 17:42 atomoxetine [From Strattera] Allergy Unverified 05/26/19 17:42 methylphenidate Allergy Unverified 05/26/19 17:42 [From Concerta] General NAVID: 3 Review of Systems All systems reviewed & are unremarkable except as noted in HPI and below Constitutional Constitutional: Denies fever(s) Musculoskeletal Musculoskeletal: Reports other (Chronic leg pain) Psychiatric Psychiatric: Reports anxiety, Reports depression, Denies hallucinations, Denies homicidal ideation and Denies suicidal ideation [facility] Medical History Acne (Acute) ADD (attention deficit disorder) (Acute) Anxiety (Chronic) Cocaine abuse (Acute) Dental abscess (Acute) Depressive disorder (Acute) History of drug abuse (Acute) Latex allergy (Acute) Low back pain (Acute) Lumbar radiculopathy (Acute) Opioid dependence (Acute) Plantar fasciitis (Acute) Rectocele (Acute) Smoker (Acute) Soft tissue abscess (Acute) Urge urinary incontinence (Acute) Surgical History S/P excision of lipoma (Acute) low back, 2010 at [facility] Family History Son Idiopathic thrombocytopenic purpura (ITP) Social History Smoking/Tobacco Use Status: Current every day Tobacco Type: cigarettes Smoking packs per day: 0.5 Smoking cigarettes per day: 10.0 Alcohol Intake: never Drug use: Occasionally Substance use type: former substance user and crack/cocaine Details: daily methadone Number of Children: 2 current occupation: Unemployed Seatbelt use: always Exam Narrative Exam Narrative: Exam limited as patient wishes to leave ED AGAINST MEDICAL ADVICE to smoke cigarettes Const General: anxious Nutritional Appearance: well nourished Orientation: alert, awake and oriented x3 Skin Wounds: wounds noted (superficial wounds to her right arm.) Neuro General: alert, oriented x3, gait normal and tone normal Psych Speech and Movement: agitated and speech clear Affect: anxious affect Thought Process: normal Thought Content: normal and suicidality Insight: insight good
--- NOTE | 2019-05-26 17:32 | NUR.NOTE ---
Nursing Note: pt eloped from this facility. md aware. pt walked out despite mds recommendation to stay. pt denied any SI per md as well.
== END 2019-05-26 17:30 ==
PROVIDERS: Emergency Provider Student in an Organized Health Care Education/Training Program; PCP Internal Medicine
DX: F41.8 Other specified anxiety disorders (principal); F11.21 Opioid dependence, in remission; Z53.29 Procedure and treatment not carried out because of patient's decision for other reasons
CPT/HCPCS: 99283

== ENCOUNTER 2019-05-26 17:35 | Emergency (ER) | payer MEDICARE, MEDICAID, SELFPAY ==
[2019-05-26 17:38] VITALS: BP 113/49; PULSE 80; RESP 14; TEMP 37; O2SAT 99
--- NOTE | 2019-05-26 17:41 | ED.GENADUL_ITS ---
Discharge Plan Disposition Patient Disposition: HOME Discharge Details Chief Complaint: PsychEval Clinical Impression: Depression, Anxiety Primary Care Provider: Oleg Thibodeaux ED Provider: Mj Story Home Meds and New Rx's Prescriptions: Continued gabapentin 600 mg tablet 1,200 mg PO TID Qty: 180 RF: 3 Flovent HFA 110 mcg/actuation HFA aerosol inhaler 1 puff IH BID RF: 0 albuterol sulfate [Ventolin HFA] 90 mcg/actuation HFA aerosol inhaler 2 puff IH Q6H PRNRF: 0 alprazolam 0.5 mg tablet,disintegrating 0.5 mg PO ONCE Qty: 2 RF: 0 albuterol sulfate [AccuNeb] 0.63 MG/3 ML solution for nebulization 0.63 mg Inhalation PRN PRNRF: 0 methadone 10 MG/ML concentrate 110 mg PO DAILY RF: 0 lidocaine [Lidoderm] 1 PATCH patch 1 patch Topical Q24H Qty: 4 RF: 0 Discharge Instructions Instructions: Depression (ED), Anxiety (ED) Additional Instructions: Please return to the emergency department at anytime for worsening symptoms or if you need a safe place to go. Please follow-up with your mental health specialist. Call tomorrow. Please contact your primary care physician to arrange follow-up. Referrals: [facility] [Provider Group] Oleg Thibodeaux MD [Primary Care Provider] - Discharge Data Discharge Date/Time-TO BE ENTERED AT DEPARTURE: 05/26/19 17:50 Medical Decision Making 17:43 --33-year-old female with history of bipolar disorder, opioid dependence, currently on methadone, sent from primary care office via EMS for thoughts of self-harm and passive suicidality. She does have some superficial cuts to her arms. Patient denies current suicidality but states that she does not feel safe and is seeking help. She is here voluntarily. She was seen a few minutes ago and eloped from the building to smoke cigarettes and returns now for further work-up and treatment. Patient admits to marijuana use earlier. Patient is medically clear for mental health evaluation. [facility] mental health wafer polishing worker has been contacted for consultation. 19:05 --patient was seen by mental health crisis screener who did complete evaluation. He does not feel the patient is at risk of harming herself. He has established plan with the patient to help arrange timely follow-up with her counselor and will contact the patient in follow-up tomorrow. I spoke with the patient is in agreement with this plan. She continues to deny suicidality. Plan will be outpatient follow-up as outlined above. I encouraged her to return immediately at any time for worsening symptoms or if she needs a safe place to go. Disposition decision was made weighing the risks and benefits of hospitalization versus outpatient treatment, the risk for further decompensation, and the patient's wishes. The patient was stable and requested discharge. Prior to discharge, my usual and customary return precautions were reviewed with the patient - this included follow-up instructions and reason to return to the emergency department if condition worsens, does not improve as expected, or other new concerns arise. HPI General Mode of arrival: ambulatory . Date/Time Provider Initiated Documentation: 05/26/19 17:41 . Limitations to Documentation: no limitations . Information obtained by: patient, EMS and old records reviewed (PCP note from today) . HPI Narrative: 33-year-old female with history of bipolar disorder, opioid dependence, currently on methadone, sent from primary care office via EMS for thoughts of self-harm and passive suicidality. Patient admits to cutting herself for symptomatic relief. Patient denies current suicidality but states that she does not feel safe and is seeking help. I reviewed PCP note from today that notes depression and anxiety with self injurious behavior and inability to commit to not hurting herself. Related Data Home Medications Medication Instructions Recorded Confirmed albuterol sulfate [AccuNeb] 0.63 mg INHALATION PRN PRN 09/22/12 05/02/19 methadone 110 mg PO DAILY 12/03/17 05/26/19 lidocaine [Lidoderm] 1 patch TOPICAL Q24H #4 patch 01/11/19 05/26/19 albuterol sulfate 90 mcg/actuation 2 puff IH Q6H PRN 03/22/19 05/26/19 aerosol inhaler fluticasone propionate 110 1 puff IH BID 03/22/19 05/26/19 mcg/actuation HFA aerosol inhaler gabapentin 600 mg tablet 1,200 mg PO TID #180 tab 04/19/19 05/26/19 alprazolam 0.5 mg disintegrating 0.5 mg PO ONCE #2 tab 11/25/19 12/26/19 tablet Previous Rx's Medication Instructions Recorded lidocaine [Lidoderm] 1 patch TOPICAL Q24H #4 patch 01/11/19 gabapentin 600 mg tablet 1,200 mg PO TID #180 tab 04/19/19 alprazolam 0.5 mg disintegrating 0.5 mg PO ONCE #2 tab 04/25/19 tablet Allergies Allergy/AdvReac Type Severity Reaction Status Date / Time clindamycin Allergy Severe Swelling/Ed Unverified 05/26/19 17:42 toya ibuprofen Allergy Intermediate Swelling/Ed Unverified 05/26/19 17:42 toya indomethacin Allergy Intermediate Swelling/Ed Unverified 05/26/19 17:42 toya latex Allergy Mild Itching Unverified 05/26/19 17:42 Latex, Natural Rubber Allergy Mild Skin Rash Unverified 05/26/19 17:42 atomoxetine [From Strattera] Allergy Unverified 05/26/19 17:42 methylphenidate Allergy Unverified 05/26/19 17:42 [From Concerta] General NAVID: 3 Review of Systems All systems reviewed & are unremarkable except as noted in HPI and below Constitutional Constitutional: Denies fever(s) Psychiatric Psychiatric: Reports anxiety and Reports depression [facility] Social History (Updated 05/02/19 @ 10:17 by Nena Thibodeaux RN) Smoking/Tobacco Use Status: Current every day Tobacco Type: cigarettes Smoking packs per day: 0.5 Smoking cigarettes per day: 10.0 Alcohol Intake: never Drug use: Occasionally Substance use type: former substance user and crack/cocaine Details: daily methadone Number of Children: 2 current occupation: Unemployed Seatbelt use: always Exam Const General: cooperative HENMT Mouth: moist mucous membranes Eyes EOM: EOM intact bilaterally Neck Neck: trachea midline and supple Resp Auscultation: clear to auscultation bilaterally, no rales, no rhonchi and no wheezes Cardio Jugular venous pressure: no JVD Rate: regular rate and not tachycardic Rhythm: regular rhythm GI Palpation: soft, not firm, no guarding, no masses, not rigid and nontender Skin Trauma: other (Superficial lacerations/abrasions to her left arm) Neuro General: alert, awake, oriented x3 and tone normal Extrem General: no edema Psych Appearance: grossly normal Mental Status: mental status grossly normal and other (depressed) Speech and Movement: speech and movement normal Mood: other (depressed) Affect: anxious affect Attitude: cooperative Insight: insight good
[2019-05-26 19:32] VITALS: BP 115/77; PULSE 88; TEMP 37.1; O2SAT 98
[2019-05-26 19:35] VITALS: BP 115/77; PULSE 88; TEMP 37.1; O2SAT 98
== END 2019-05-26 17:50 | disposition home or self-care (01) ==
PROVIDERS: Emergency Provider Student in an Organized Health Care Education/Training Program; PCP Internal Medicine
DX: F41.8 Other specified anxiety disorders (principal); F11.21 Opioid dependence, in remission; F31.9 Bipolar disorder, unspecified; R45.851 Suicidal ideations; X78.9XXA Intentional self-harm by unspecified sharp object, initial encounter
CPT/HCPCS: 99283; 99285

== ENCOUNTER 2019-06-04 13:46 | Emergency (ER) | payer MEDICARE, MEDICAID, SELFPAY ==
[2019-06-04 13:49] VITALS: BP 121/58; PULSE 83; RESP 14; TEMP 36.7; O2SAT 96
--- NOTE | 2019-06-04 14:52 | W.ED.GENAD ---
Discharge Plan Disposition Patient Disposition: HOME Condition: Stable Discharge Details Chief Complaint: EyeProblem Clinical Impression: Conjunctivitis, Exposure to hepatitis C, Medication administered Primary Care Provider: Oleg Thibodeaux ED Provider: Megan Quinones Home Meds and New Rx's Prescriptions: Continued gabapentin 600 mg tablet 1,200 mg PO TID Qty: 180 RF: 3 Flovent HFA 110 mcg/actuation HFA aerosol inhaler 1 puff IH BID RF: 0 albuterol sulfate [Ventolin HFA] 90 mcg/actuation HFA aerosol inhaler 2 puff IH Q6H PRNRF: 0 albuterol sulfate [AccuNeb] 0.63 MG/3 ML solution for nebulization 0.63 mg Inhalation PRN PRNRF: 0 methadone 10 MG/ML concentrate 110 mg PO DAILY RF: 0 lidocaine [Lidoderm] 1 PATCH patch 1 patch Topical Q24H Qty: 4 RF: 0 trazodone 150 mg Tablet 150 mg PO QHS RF: 0 hydroxyzine pamoate [Vistaril] 25 mg Capsule 25 mg PO QHS PRNRF: 0 aripiprazole [Abilify] 5 mg Tablet 5 mg PO DAILY RF: 0 Discharge Instructions Instructions: Conjunctivitis (ED) Additional Instructions: Apply the sulfacetamide drops to your left eye 4 times daily for 5 days. Follow-up with your primary care doctor for results of the blood drawn today. Return to the emergency department with any concerns. Discharge Data Discharge Date/Time-TO BE ENTERED AT DEPARTURE: 06/04/19 15:47 Discharge Physician: Megan Quinones Medical Decision Making 33-year-old female presents with multiple complaints. She is complaining of left eye tearing, yellow discharge and crusting for the past few days. Patient just got out of [place] for suicidal ideations and think she was exposed to something there. Patient also states that she is on methadone and was recently sharing needles with her boyfriend who recently informed her he is positive for hepatitis C. She states she would like testing for hepatitis C. She is also requesting a dose of her gabapentin here. She takes 1200 mg 3 times daily for her possible MS and lumbar radiculopathy. We will give sulfacetamide drops here for home. Lab draw including hepatitis C and B, HIV and RPR ordered. Patient was given a dose of her gabapentin here. She states her prescription is at the pharmacy but she is unable to pick it up for the next 7 days. Patient spoke to the power and recovery supervisor in the room and was given counselor information. Advised to follow up with the primary care doctor for re-evaluation. Usual and customary return precautions given prior to discharge. HPI General Date/Time Provider Initiated Documentation: 06/04/19 13:46. History of Present Illness 33 year old F presents to the emergency department with the chief complaint of L eye discharge, request for Hep C testing, described as mild, Patient started experiencing this day(s) (2) and it has been constant. No relieving factors improve symptom(s), No exacerbating factors reported . Patient notes no other symptoms.. Patient did receive the following treatments prior to arrival, none Related Data Home Medications Medication Instructions Recorded Confirmed albuterol sulfate [AccuNeb] 0.63 mg INHALATION PRN PRN 09/22/12 06/04/19 methadone 110 mg PO DAILY 12/03/17 06/04/19 lidocaine [Lidoderm] 1 patch TOPICAL Q24H #4 patch 01/11/19 06/04/19 albuterol sulfate 90 mcg/actuation 2 puff IH Q6H PRN 03/22/19 06/04/19 aerosol inhaler fluticasone propionate 110 1 puff IH BID 03/22/19 06/04/19 mcg/actuation HFA aerosol inhaler gabapentin 600 mg tablet 1,200 mg PO TID #180 tab 04/19/19 06/04/19 aripiprazole [Abilify] 5 mg PO DAILY 06/04/19 06/04/19 hydroxyzine pamoate [Vistaril] 25 mg PO QHS PRN 06/04/19 06/04/19 trazodone 150 mg PO QHS 06/04/19 06/04/19 Previous Rx's Medication Instructions Recorded lidocaine [Lidoderm] 1 patch TOPICAL Q24H #4 patch 01/11/19 gabapentin 600 mg tablet 1,200 mg PO TID #180 tab 04/19/19 Allergies Allergy/AdvReac Type Severity Reaction Status Date / Time clindamycin Allergy Severe Swelling/Ed Unverified 06/04/19 13:55 toya ibuprofen Allergy Intermediate Swelling/Ed Unverified 06/04/19 13:55 toya indomethacin Allergy Intermediate Swelling/Ed Unverified 06/04/19 13:55 toya latex Allergy Mild Itching Unverified 06/04/19 13:55 Latex, Natural Rubber Allergy Mild Skin Rash Unverified 06/04/19 13:55 atomoxetine [From Strattera] Allergy Unverified 06/04/19 13:55 methylphenidate Allergy Unverified 06/04/19 13:55 [From Concerta] General Stated Complaint: EyeProblem NAVID: 4 Review of Systems All systems reviewed & are unremarkable except as noted in HPI and below Constitutional Constitutional: Reports as per HPI, Denies chills and Denies fever(s) Eyes Eyes: Denies blurry vision, Reports eye discharge and Reports eye pain ENT Ears, Nose, Mouth, and Throat: Denies dizziness, Denies sore throat and Denies throat swelling Cardiovascular Cardiovascular: Denies chest pain and Denies dyspnea Respiratory Respiratory: Denies cough and Denies dyspnea Gastrointestinal Gastrointestinal: Denies abdominal pain, Denies diarrhea and Denies vomiting Genitourinary Genitourinary: Denies hematuria and Denies dysuria Musculoskeletal Musculoskeletal: Denies back pain and Denies numbness Integumentary/Breasts Skin/Breast: Denies lesions and Denies rash Neurologic Neurologic: Denies dizziness, Denies focal weakness and Denies numbness Allergic/Immunologic Allergic/Immunologic: Denies throat swelling [facility] Medical History Acne (Acute) ADD (attention deficit disorder) (Acute) Anxiety (Chronic) Cocaine abuse (Acute) Dental abscess (Acute) Depressive disorder (Acute) History of drug abuse (Acute) Latex allergy (Acute) Low back pain (Acute) Lumbar radiculopathy (Acute) Opioid dependence (Acute) Plantar fasciitis (Acute) Rectocele (Acute) Smoker (Acute) Soft tissue abscess (Acute) Urge urinary incontinence (Acute) Surgical History S/P excision of lipoma (Acute) low back, 2010 at [facility] Family History Son Idiopathic thrombocytopenic purpura (ITP) Social History Smoking/Tobacco Use Status: Current every day Tobacco Type: cigarettes Smoking packs per day: 0.5 Smoking cigarettes per day: 10.0 Alcohol Intake: never Drug use: Occasionally Substance use type: former substance user and crack/cocaine Details: daily methadone Number of Children: 2 current occupation: Unemployed Seatbelt use: always Do you feel safe at home: Yes Do you feel safe in your relationship?: Yes Exam Const General: cooperative, healthy appearing and no acute distress HENMT Head: normal to inspection Mouth: oral mucosae normal Eyes General: appearance normal, both eyes and all related structures Eyelids: eyelids normal Pupils: PERRL EOM: EOM intact bilaterally Other: Left eye injected with yellow crusting on medial aspect. No obvious foreign body noted. Neck Neck: normal visual inspection Resp Effort & Inspection: normal respiratory effort and able to speak in complete sentences Cardio Rate: regular rate Skin General skin exam: no rashes or lesions noted Neuro General: alert, awake and oriented x3 Motor: muscle tone normal throughout Extrem General: normal to inspection and full ROM Psych Appearance: grossly normal Affect: normal affect Course Vital Signs Vital signs: Vital Signs Temperature 98.1 F 06/04/19 13:49 Pulse 83 06/04/19 13:49 Respiratory Rate 14 06/04/19 13:49 Blood Pressure 121/58 L 06/04/19 13:49 Pulse Oximetry 96 06/04/19 13:49 Temperature 98.1 F 06/04/19 13:49 Temperature Source Temporal Artery Scan 06/04/19 13:49 Pulse 83 06/04/19 13:49 Respiratory Rate 14 06/04/19 13:49 Respiratory Effort Non-Labored 06/04/19 13:51 Blood Pressure 121/58 L 06/04/19 13:49 Blood Pressure Position Sitting 06/04/19 13:49 Pulse Oximetry 96 06/04/19 13:49 Oxygen Delivery Method Room Air 06/04/19 13:49 Oxygen Flow Rate 0 06/04/19 13:49 Pain Level 0 06/04/19 13:49
[2019-06-04] MEDS: Gabapentin 600 MG TAB 1200 MG PO (15:14)
[2019-06-06 10:58] LABS: HBs Antibody, Quant >1000.0 mIU/mL (See Note); Hepatitis B Surface Ab Positive (See Note); Hepatitis B Surface Ag Negative (Negative)
[2019-06-06 10:59] LABS: HIV-1/2 Ag & Ab Screen Negative (Negative)
[2019-06-06 11:44] LABS: Hepatitis C Ab w Rflx HCV PCR Negative (Negative)
[2019-06-06 13:00] LABS: Syphilis Serology (RPR) Negative (Negative)
== END 2019-06-04 15:47 | disposition home or self-care (01) ==
PROVIDERS: Emergency Provider Physician Assistant; PCP Internal Medicine
DX: H10.32 Unspecified acute conjunctivitis, left eye (principal); Z11.59 Encounter for screening for other viral diseases; Z20.5 Contact with and (suspected) exposure to viral hepatitis; F19.10 Other psychoactive substance abuse, uncomplicated
CPT/HCPCS: 36415; 86706; 86803; 87340; 87389; 99283; 86592

== ENCOUNTER 2019-06-12 12:06 | Emergency (ER) | payer MEDICARE, MEDICAID, SELFPAY ==
[2019-06-12 12:10] VITALS: BP 134/87; PULSE 92; RESP 18; TEMP 36; O2SAT 96
[2019-06-12 12:43] VITALS: RESP 16
--- NOTE | 2019-06-12 12:57 | ED.GENADUL_ITS ---
Discharge Plan Disposition Patient Disposition: HOME Condition: Stable Discharge Details Chief Complaint: GenMedical Clinical Impression: Paresthesia of both legs, Substance abuse Primary Care Provider: Oleg Thibodeaux ED Provider: Megan Quinones Home Meds and New Rx's Prescriptions: Continued Flovent HFA 110 mcg/actuation HFA aerosol inhaler 1 puff IH BID RF: 0 albuterol sulfate [Ventolin HFA] 90 mcg/actuation HFA aerosol inhaler 2 puff IH Q6H PRNRF: 0 gabapentin 600 mg tablet 1,200 mg PO TID Qty: 60 RF: 0 albuterol sulfate [AccuNeb] 0.63 MG/3 ML solution for nebulization 0.63 mg Inhalation PRN PRNRF: 0 methadone 10 MG/ML concentrate 110 mg PO DAILY RF: 0 lidocaine [Lidoderm] 1 PATCH patch 1 patch Topical Q24H Qty: 4 RF: 0 trazodone 150 mg Tablet 150 mg PO QHS RF: 0 hydroxyzine pamoate [Vistaril] 25 mg Capsule 25 mg PO QHS PRNRF: 0 aripiprazole [Abilify] 5 mg Tablet 5 mg PO DAILY RF: 0 Discharge Instructions Instructions: Paresthesia (ED), Polysubstance Abuse (ED) Additional Instructions: Follow-up with your scheduled appointment with her MRI on Thursday. Follow-up with Dr. Edwards for results of your MRI. Return to the emergency department if you develop any worsening or new concerning symptoms of headaches, extremity weakness, slurred speech, blurry vision. Follow-up with the high school assistant football coach as directed for further information about substance abuse rehabilitation centers and programs. Discharge Data Discharge Date/Time-TO BE ENTERED AT DEPARTURE: 06/12/19 14:22 Discharge Physician: Megan Quinones Medical Decision Making 33-year-old female with a history of bipolar disorder, anxiety, on methadone and history of recent IV drug use including heroin and cocaine presents with left leg [id number] for the past 2 days. She states that extends from her lower leg down to her entire foot. On arrival to room, patient is sitting in a chair with her feet on the stretcher and she is painting her fingernails. She was seen here recently for multiple other complaints and had complained of the symptom at that time as well. She states she has had intermittent tingling and numbness in both of her legs for the past several months. She states she is followed by Dr. Edwards who is trying to rule out a diagnosis of multiple sclerosis. She has an MRI of her brain scheduled for 2 days from now. She states she has tingling and numbness that alternates between both legs, but she has had worsening numbness in her left lower leg for the past 2 days. She states she called her primary care doctor and she was advised to come here for further evaluation to rule out stroke. She states she last used IV cocaine yesterday. She denies any fever, slurred speech, blurry vision, headache, dizziness, extremity weakness. She has no focal deficits on exam. She is neurovascular intact. Motor and sensory grossly intact. History and presentation not consistent with acute CVA. She has an ongoing intermittent tingling numbness in both of her legs, and worse in her left leg for the past several months. Do not see an indication for lab work or imaging at this time. She is advised to follow-up with her community health ed appointment for an MRI on Thursday. Upon leaving the room, patient requested if we can get her the frozen yogurt she likes in the cafeteria. She refused crackers here. Patient was tearful throughout exam and requested to speak with high school assistant football coach due to her persistent substance abuse. She was referred to them on her recent ED visit but states she blew them off and decided to use drugs instead recently. She expressed that her life is difficult due to not having custody of her children. She spoke to the high school assistant football coach here in the ED. HPI General Mode of arrival: ambulatory . Date/Time Provider Initiated Documentation: 06/12/19 12:07 . Limitations to Documentation: no limitations . Information obtained by: patient . History of Present Illness 33 year old F presents to the emergency department with the chief complaint of Left leg tingling, Patient started experiencing this month(s) (3) and it has been intermittent. No relieving factors improve symptom(s), Movement worsens symptoms . Patient notes denies fever/chills, headaches, loss of appetite, malaise, nausea/vomiting, rash, seizure, shortness of breath, syncope and weakness. Patient did receive the following treatments prior to arrival, none Related Data Home Medications Medication Instructions Recorded Confirmed albuterol sulfate [AccuNeb] 0.63 mg INHALATION PRN PRN 04/24/13 01/04/20 methadone 110 mg PO DAILY 12/03/17 06/12/19 lidocaine [Lidoderm] 1 patch TOPICAL Q24H #4 patch 01/11/19 06/12/19 albuterol sulfate 90 mcg/actuation 2 puff IH Q6H PRN 03/22/19 06/12/19 aerosol inhaler fluticasone propionate 110 1 puff IH BID 03/22/19 06/12/19 mcg/actuation HFA aerosol inhaler aripiprazole [Abilify] 5 mg PO DAILY 06/04/19 06/12/19 hydroxyzine pamoate [Vistaril] 25 mg PO QHS PRN 06/04/19 06/12/19 trazodone 150 mg PO QHS 06/04/19 06/12/19 gabapentin 600 mg tablet 1,200 mg PO TID #60 tab 06/06/19 06/12/19 Previous Rx's Medication Instructions Recorded lidocaine [Lidoderm] 1 patch TOPICAL Q24H #4 patch 01/11/19 gabapentin 600 mg tablet 1,200 mg PO TID #60 tab 06/06/19 Allergies Allergy/AdvReac Type Severity Reaction Status Date / Time clindamycin Allergy Severe Swelling/Ed Unverified 06/12/19 12:16 toya ibuprofen Allergy Intermediate Swelling/Ed Unverified 06/12/19 12:16 toya indomethacin Allergy Intermediate Swelling/Ed Unverified 06/12/19 12:16 toya latex Allergy Mild Itching Unverified 06/12/19 12:16 Latex, Natural Rubber Allergy Mild Skin Rash Unverified 06/12/19 12:16 atomoxetine [From Strattera] Allergy Unverified 06/12/19 12:16 methylphenidate Allergy Unverified 06/12/19 12:16 [From Concerta] General Stated Complaint: GenMedical NAVID: 3 Review of Systems All systems reviewed & are unremarkable except as noted in HPI and below Constitutional Constitutional: Reports as per HPI, Denies chills and Denies fever(s) Eyes Eyes: Denies blurry vision ENT Ears, Nose, Mouth, and Throat: Denies dizziness, Denies sore throat and Denies throat swelling Cardiovascular Cardiovascular: Denies chest pain and Denies dyspnea Respiratory Respiratory: Denies cough and Denies dyspnea Gastrointestinal Gastrointestinal: Denies abdominal pain, Denies diarrhea and Denies vomiting Genitourinary Genitourinary: Denies hematuria and Denies dysuria Musculoskeletal Musculoskeletal: Denies back pain, Denies numbness and Reports tingling (pins and needles in L lower leg) Integumentary/Breasts Skin/Breast: Denies lesions and Denies rash Neurologic Neurologic: Denies dizziness, Denies focal weakness, Denies numbness and Reports tingling (pins and needles in L lower leg) Allergic/Immunologic Allergic/Immunologic: Denies throat swelling [facility] Social History Smoking/Tobacco Use Status: Current every day Tobacco Type: cigarettes Smoking packs per day: 0.5 Smoking cigarettes per day: 10.0 Alcohol Intake: never Drug use: Occasionally Substance use type: former substance user and crack/cocaine Details: daily methadone Number of Children: 2 current occupation: Unemployed Seatbelt use: always Do you feel safe at home: Yes Do you feel safe in your relationship?: Yes Exam Const General: cooperative, no acute distress and anxious HENMT Head: normal to inspection Face and sinus: normal facial exam Eyes General: appearance normal, both eyes and all related structures Neck Neck: normal visual inspection and No submandibular swelling Lymphatic: no lymphadenopathy noted Chest Chest: normal inspection of the chest and no tenderness Resp Effort & Inspection: normal respiratory effort and able to speak in complete sentences Auscultation: clear to auscultation bilaterally Cardio Rate: regular rate Rhythm: regular rhythm GI Inspection: normal to inspection Palpation: soft, not firm, not rigid and nontender Auscultation: normal bowel sounds Skin General skin exam: no rashes or lesions noted Neuro General: alert, awake and oriented x3 Cranial Nerves: CN's II-XI intact bilaterally Cognition: normal cognition Speech: speech normal Motor: muscle tone normal throughout and strength 5/5 throughout Sensory Exam: no sensory deficits noted and normal double simultaneous stimulation Other: Bilateral DP/PT pulses intact Extrem General: normal to inspection, full ROM, normal capillary refill, no calf tenderness bilaterally and no edema Psych Appearance: grossly normal Mental Status: mental status grossly normal Speech and Movement: speech and movement normal Affect: normal affect Course Vital Signs Vital signs: Vital Signs Temperature 96.8 F L 06/12/19 12:10 Pulse 92 H 06/12/19 12:10 Respiratory Rate 18 06/12/19 12:10 Blood Pressure 134/87 06/12/19 12:10 Pulse Oximetry 96 06/12/19 12:10 Temperature 96.8 F L 06/12/19 12:10 Temperature Source Temporal Artery Scan 06/12/19 12:10 Pulse 92 H 06/12/19 12:10 Respiratory Rate 16 06/12/19 12:43 Respiratory Effort 06/12/19 12:43 Respiratory Depth Normal 06/12/19 12:43 Respiratory Pattern Normal 06/12/19 12:43 Blood Pressure 134/87 06/12/19 12:10 Pulse Oximetry 96 06/12/19 12:10 Oxygen Delivery Method Room Air 06/12/19 12:10 Oxygen Flow Rate 0 06/12/19 12:10
--- NOTE | 2019-06-16 14:55 | NUR.NOTE ---
Addendum entered by Wilda Álvarez 06/16/19 14:56: to be re-evaluated. Patient stated she understood and that she would probably come back to the ED. Wilda Álvarez. Original Note: Nursing Note: Patient called stating that her legs were still numb and that she needed a work note. Per Dr. Gupta, he was not involved in her care so she would need to call tomorrow to speak with Dr. Quinones, call Dr. Edwards's office, or come back to be re-evaul
== END 2019-06-12 14:22 | disposition home or self-care (01) ==
PROVIDERS: Emergency Provider Physician Assistant; PCP Internal Medicine
DX: R20.2 Paresthesia of skin (principal); F14.10 Cocaine abuse, uncomplicated; F11.10 Opioid abuse, uncomplicated; F31.9 Bipolar disorder, unspecified
CPT/HCPCS: 99281; 99283

== ENCOUNTER 2019-06-14 01:33 | Outpatient (CLI) | payer MEDICARE, MEDICAID, SELFPAY ==
--- NOTE | 2019-06-14 15:00 | DI.MRI_ITS ---
EXAM: MR BRAIN WO CLINICAL HISTORY: ? MS, RT EYE PAIN, FATIGUE, IMBALANCE, R53.83 TECHNIQUE: Multiplanar multisequence MRI of the brain was performed. COMPARISON: No exams were available for comparison FINDINGS: VENTRICLES AND EXTRA AXIAL SPACES: Normal in size and morphology for the patient's age. HEMORRHAGE: None. CEREBRAL PARENCHYMA: No focus of restricted diffusion to suggest acute infarct. No space-occupying le kendy identified. Normal signal is seen in the brain parenchyma. MIDLINE SHIFT: None. BRAINSTEM/CEREBELLUM: Normal. CALVARIUM: Normal. VISUALIZED PARANASAL SINUSES/MASTOIDS: There is mucosal thickening in the right maxillary sinus, righ t ethmoid air cells and the right frontal sinus. OTHER FINDINGS: Normal flow void in the morongo of Thomas is present. The orbits are unremarkable. IMPRESSION: Sinusitis. Otherwise, unremarkable MRI of the brain.
== END 2019-06-14 01:53 ==
PROVIDERS: PCP Internal Medicine; Visit Provider Psychiatry & Neurology Neurology
DX: H57.11 Ocular pain, right eye (principal); R53.83 Other fatigue; J32.9 Chronic sinusitis, unspecified
CPT/HCPCS: 70551

== ENCOUNTER 2019-07-13 17:03 | Outpatient (REF) | payer MEDICARE, MEDICAID, SELFPAY ==
[2019-07-13 21:47] LABS: HCT 40.8 % (36.0-46.0); HGB 13.6 g/dL (12.0-15.5); Mean Corp. HGB Concentration 33.3 g/dL (32.0-36.0); Mean Corpuscular Hemoglobin 30.6 pg (27.0-33.0); Mean Corpuscular Volume 91.9 fL (80-95); Mean Platelet Volume 11.6 fL (8.0-11.0); Platelet Count 314 x1000/uL (130-400); RBC 4.44 m/cumm (4.00-5.20); RBC Distribution Width 13.5 % (11.7-14.6); White Blood Cell Count 7.71 k/cumm (4.4-10.8)
[2019-07-13 22:11] LABS: TSH (W/Ref FT4) 4.88 uIU/mL (0.36-3.74)
[2019-07-13 22:34] LABS: FREE T4 1.24 ng/dL (0.76-1.46)
== END 2019-07-13 17:23 ==
LOC: NCHCN 17:03
PROVIDERS: PCP Internal Medicine; Visit Provider Family Medicine
DX: R53.83 Other fatigue (principal)
CPT/HCPCS: 80053; 85027; 84439; 84443

== ENCOUNTER 2019-11-16 12:34 | Outpatient (REF) | payer MEDICARE, MEDICAID, SELFPAY ==
--- NOTE | 2019-11-16 12:00 | PAPFT_PTH ---
PATIENT: Osiris Calle LOC: [facility] U#:[id number] AGE/SX: 34/F ROOM: RE11/16/[address]: Saniya Oakley NP : 1985 BED: DIS: 11/16/2019 SPEC #: [id number] RECD: 11/16/19 14:55 STATUS: JUAN MIGUEL REQ #: [id number] RIKY: 11/16/19 12:[address]: Cele NAVARRO,Saniya DEPT: [facility] Cytology RECD BY: Estefania Sinha ENTERED: 11/16/19 14:55 SP TYPE: PAPFT OTHR DR: Oleg Thibodeaux Tissues: 1 - CX/ENDOCX FOR PAP SMEARS Procedures: PAP THIN PREP/UVM Screening HPV DNA PROBE Comments: [id number] (CHLAMYDIA/GC)
[2019-11-17 13:34] LABS: Chlamydia Result Negative (Negative); GC Result Negative (Negative)
== END 2019-11-16 12:54 ==
LOC: LBN 12:34
PROVIDERS: PCP Internal Medicine; Visit Provider Nurse Practitioner Women's Health
DX: Z11.3 Encounter for screening for infections with a predominantly sexual mode of transmission (principal); Z12.4 Encounter for screening for malignant neoplasm of cervix
CPT/HCPCS: 87491; 87591; 88142; 87624

== ENCOUNTER 2019-11-21 13:53 | Outpatient (CLI) | payer MEDICARE, MEDICAID, SELFPAY ==
--- NOTE | 2019-11-21 14:00 | DI.US_ITS ---
EXAM: US PELVIS TRANSVAGINAL CLINICAL HISTORY: pelvic pressure, amenorrhea, s/p BTL. TECHNIQUE: Transabdominal and transvaginal pelvic ultrasound was performed using standard protocol. COMPARISON: US PELVIS TRANSVAG from 09/08/2014 FINDINGS: KIDNEYS: Kidneys are symmetric in size. No evidence of renal calculi. No evidence of hydronephrosis. No renal mass or cyst identified. UTERUS: Position: Anteverted. Size: 7.7 long by 3.6 AP by 4.8 transverse cm Endometrium: 0.3 cm. Normal for patient's menstrual status. Myometrium: Unremarkable. Cervix: Unremarkable. OVARIES: Right: 2.6 x 1.5 x 2.0 cm Cyst or mass: Small follicular cysts. Left: 2.5 x 1.0 x 1.4 cm Cyst or mass: Small follicular cysts. DOPPLER: Color: Symmetric and uniform flow to both ovaries. No hyperemia. Duplex: Normal ovarian arterial waveforms visualized. CUL-DE-SAC: Free fluid: None. Other: None. IMPRESSION: 1. Normal sonographic appearance of the kidneys. 2. Normal-appearing uterus with endometrial stripe within normal limits. 3. Unremarkable bilateral ovaries. DATA REPOSITORY:
== END 2019-11-21 14:13 ==
PROVIDERS: PCP Internal Medicine; Visit Provider Nurse Practitioner Women's Health
DX: R10.2 Pelvic and perineal pain (principal); N91.0 Primary amenorrhea
CPT/HCPCS: 76830; 76856

== ENCOUNTER 2020-01-22 00:31 | Emergency (ER) | payer MEDICARE, MEDICAID, SELFPAY ==
[2020-01-22 00:35] VITALS: BP 118/67; PULSE 97; RESP 20; TEMP 36.7; O2SAT 97
--- NOTE | 2020-01-22 00:40 | ED.GENADUL_ITS ---
Discharge Plan Disposition Patient Disposition: HOME Condition: Good Discharge Details Chief Complaint: DentalOral Clinical Impression: Dental infection Primary Care Provider: Oleg Thibodeaux ED Provider: Armando Camargo Home Meds and New Rx's Prescriptions: New penicillin V potassium 500 mg tablet 500 mg PO QID 10 Days Qty: 40 RF: 0 Continued Flovent HFA 110 mcg/actuation HFA aerosol inhaler 1 puff IH BID RF: 0 albuterol sulfate [Ventolin HFA] 90 mcg/actuation HFA aerosol inhaler 2 puff IH Q6H PRNRF: 0 gabapentin 600 mg tablet 1,200 mg PO TID Qty: 60 RF: 0 albuterol sulfate [AccuNeb] 0.63 MG/3 ML solution for nebulization 0.63 mg Inhalation PRN PRNRF: 0 methadone 10 MG/ML concentrate 110 mg PO DAILY RF: 0 lidocaine [Lidoderm] 1 PATCH patch 1 patch Topical Q24H Qty: 4 RF: 0 trazodone 150 mg Tablet 150 mg PO QHS RF: 0 hydroxyzine pamoate [Vistaril] 25 mg Capsule 25 mg PO QHS PRNRF: 0 aripiprazole [Abilify] 5 mg Tablet 5 mg PO DAILY RF: 0 Discharge Instructions Instructions: Toothache (ED) Additional Instructions: At this time you have a mild infection secondary to an infected tooth. Please take the antibiotic as directed. Please continue to take Tylenol and Motrin as needed to help with the pain and swelling. Please follow-up closely with your dentist for reassessment to potentially have the tooth removed. If you notice any worsening of your symptoms, or any new symptoms such as vomiting, diarrhea, fever, chills, shortness of breath, chest pain, numbness, weakness, or fainting , please return immediately to the emergency department for reevaluation. Please follow up with your primary care provider as soon as possible for reassessment and reevaluation. As always, it was a pleasure participating in your medical care today. Referrals: Oleg Thibodeaux MD [Primary Care Provider] - Medical Decision Making 84-year-old female with a past medical history of depression, previous drug abuse, smoking, presents today for evaluation of right lower dental pain and swelling. Patient states that is been present for the last 48 hours. She did try to squeeze some pus from around 1 of her teeth, but none came out. She denies any fever or chills. No other complaints at this time. Of an unrelated note she has noticed a small bump in her right posterior hard palate she also wants evaluated. No modifying factors. She does note that that small nodule is slightly tender, but only when palpated. Physical exam demonstrates notable dental caries, no evidence of periapical abscess, or abscess or fluctuance in general. No indication for incision and drainage. No signs of Ludewig's angina, airway compromise or other abnormalities. Will give dose of penicillin here, and a prescription for home use, will give the patient a dental sheet for dentist for whom to contact, but did recommend that she contact her dentist that she has had interaction with already. Discussed red flags which to return. In regards to the small nodule on her superior palate, I suspect is just a node, and will resolve when her dental infections resolved. However I did recommend she follow-up with her dentist in regards to this if it does not resolve after this. Discussed red flags which to return. I have extensively reviewed the treatment plan and discharge instructions with the patient. I have addressed all patient concerns at this time. The patient was made aware of what symptoms to monitor for that would warrant a return to the emergency department. Discussed the plan with the patient, they demonstrate verbal understanding and agreement with our assessment and plan at this time. HPI General Date/Time Provider Initiated Documentation: 01/22/20 00:33 . HPI Narrative: 84-year-old female with a past medical history of depression, previous drug abuse, smoking, presents today for evaluation of right lower dental pain and swelling. Patient states that is been present for the last 48 hours. She did try to squeeze some pus from around 1 of her teeth, but none came out. She denies any fever or chills. No other complaints at this time. Of an unrelated note she has noticed a small bump in her right posterior hard palate she also wants evaluated. No modifying factors. She does note that that small nodule is slightly tender, but only when palpated. Related Data Home Medications Medication Instructions Recorded Confirmed albuterol sulfate [AccuNeb] 0.63 mg INHALATION PRN PRN 09/22/12 06/04/19 methadone 110 mg PO DAILY 12/03/17 06/12/19 lidocaine [Lidoderm] 1 patch TOPICAL Q24H #4 patch 01/11/19 06/12/19 albuterol sulfate 90 mcg/actuation 2 puff IH Q6H PRN 03/22/19 06/12/19 aerosol inhaler fluticasone propionate 110 1 puff IH BID 03/22/19 06/12/19 mcg/actuation HFA aerosol inhaler aripiprazole [Abilify] 5 mg PO DAILY 06/04/19 06/12/19 hydroxyzine pamoate [Vistaril] 25 mg PO QHS PRN 06/04/19 06/12/19 trazodone 150 mg PO QHS 06/04/19 06/12/19 gabapentin 600 mg tablet 1,200 mg PO TID #60 tab 06/06/19 06/12/19 penicillin V potassium 500 mg PO QID 10 Days #40 tab 01/22/20 Previous Rx's Medication Instructions Recorded lidocaine [Lidoderm] 1 patch TOPICAL Q24H #4 patch 01/11/19 gabapentin 600 mg tablet 1,200 mg PO TID #60 tab 06/06/19 penicillin V potassium 500 mg PO QID 10 Days #40 tab 01/22/20 Allergies Allergy/AdvReac Type Severity Reaction Status Date / Time clindamycin Allergy Severe Swelling/Ed Unverified 06/12/19 12:16 toya ibuprofen Allergy Intermediate Swelling/Ed Unverified 06/12/19 12:16 toya indomethacin Allergy Intermediate Swelling/Ed Unverified 06/12/19 12:16 toya latex Allergy Mild Itching Unverified 06/12/19 12:16 Latex, Natural Rubber Allergy Mild Skin Rash Unverified 06/12/19 12:16 atomoxetine [From Strattera] Allergy Unverified 06/12/19 12:16 methylphenidate Allergy Unverified 06/12/19 12:16 [From Concerta] General NAVID: 3 Review of Systems All systems reviewed & are unremarkable except as noted in HPI and below PFSH Medical History Acne (Acute) ADD (attention deficit disorder) (Acute) Anxiety (Chronic) Cocaine abuse (Acute) Dental abscess (Acute) Depressive disorder (Acute) History of drug abuse (Acute) Latex allergy (Acute) Low back pain (Acute) Lumbar radiculopathy (Acute) Opioid dependence (Acute) Plantar fasciitis (Acute) Rectocele (Acute) Smoker (Acute) Soft tissue abscess (Acute) Urge urinary incontinence (Acute) Surgical History Hx of tubal ligation (Chronic) S/P excision of lipoma (Acute) low back, [address] [facility] Family History Son Idiopathic thrombocytopenic purpura (ITP) Social History Smoking/Tobacco Use Status: Current every day Tobacco Type: cigarettes Smoking packs per day: 0.5 Smoking cigarettes per day: 10.0 Alcohol Intake: never Drug use: Occasionally Substance use type: former substance user and crack/cocaine Details: daily methadone Number of Children: 2 current occupation: Unemployed Seatbelt use: always Do you feel safe at home: Yes Do you feel safe in your relationship?: Yes Female Reproductive History Menstrual control method: permanent sterilization History History 3 Para 2 Hx # Term Pregnancies Multiple births Hx # Pregnancies Ectopic pregnancies AB induced Hx Number of Living Children AB spontaneous Exam Narrative Exam Narrative: 1.Const: Well-nourished, Well-developed, appearing stated age 2.Eyes: PERRL, no conjunctival injection, and symmetrical lids. 3.ENT: Atraumatic external nose and ears. Moist MM. Neck: Symmetric, trachea midline, No thyromegaly. Poor dentition, right lower canine tooth demonstrates evidence of notable dental carry, with notable irritation, no periapical abscess O, no swelling, no signs of airway compromise or posterior oropharynx swelling. Small circular nodule noted in the right upper posterior hard palate. No signs of fluctuance, minimally tender. No ulcer lesion or other abnormality otherwise. 4.CVS: +S1/S2, No murmurs or gallops. Peripheral pulses 2+ and equal in all extremities. Brisk capillary refill in all extremities. 5.RESP: Unlabored respiratory effort. Clear to auscultation bilaterally. No wheezes rales or rhonchi 6.GI: Soft, Nontender/Nondistended, No hepatosplenomegaly. No guarding or rebound. 7.MSK: Normocephalic/Atraumatic, Extremities w/o deformity or ttp No cyanosis or clubbing, Normal movement of all extremities 8.Skin: Warm, Dry. No rashes or lesions. 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 Sensation grossly intact, no focal neurologic deficits. 10.Psych: (AAO) x3. Appropriate mood and affect
== END 2020-01-22 00:45 | disposition home or self-care (01) ==
LOC: ER 01:06
PROVIDERS: Emergency Provider Student in an Organized Health Care Education/Training Program; PCP Internal Medicine
DX: K08.89 Other specified disorders of teeth and supporting structures (principal); R22.0 Localized swelling, mass and lump, head
CPT/HCPCS: 99283

== ENCOUNTER 2020-07-08 19:11 | Emergency (ER) | payer MEDICARE, MEDICAID, SELFPAY ==
--- NOTE | 2020-07-08 19:12 | ED.GENADUL_ITS ---
Discharge Plan Disposition Patient Disposition: HOME Condition: Good Discharge Details Clinical Impression: Vaginal discharge Primary Care Provider: Oleg Thibodeaux ED Provider: Damari Leigh Home Meds and New Rx's Prescriptions: Continued Flovent HFA 110 mcg/actuation HFA aerosol inhaler 1 puff IH BID RF: 0 albuterol sulfate [Ventolin HFA] 90 mcg/actuation HFA aerosol inhaler 2 puff IH Q6H PRNRF: 0 albuterol sulfate [AccuNeb] 0.63 MG/3 ML solution for nebulization 0.63 mg Inhalation PRN PRNRF: 0 methadone 10 MG/ML concentrate 110 mg PO DAILY RF: 0 gabapentin 600 mg tablet 600 mg PO BID RF: 0 lidocaine [Lidoderm] 1 PATCH patch 1 patch Topical Q24H Qty: 4 RF: 0 trazodone 150 mg Tablet 150 mg PO QHS RF: 0 hydroxyzine pamoate [Vistaril] 25 mg Capsule 25 mg PO QHS PRNRF: 0 aripiprazole [Abilify] 5 mg Tablet 5 mg PO DAILY RF: 0 Discharge Instructions Instructions: Vaginal Discharge (ED) Additional Instructions: Your exam is reassuring today. I do not see any evidence to suggest an abscess, rectal trauma, thrombosed hemorrhoid, large amount of vaginal discharge or prolapse at this time. There is no palpable enlarged lymph nodes at this time. You have been tested for STDs as well as common vaginal pathogens. These test are pending. I will call you with the results of tonsanjiv's test that will be available in 1 hour as discussed. Your other STD screening test will be back in the next 5 business days. We will contact you with any positive results. Please follow-up with women's wellness this week, call tomorrow to schedule appointment. If you develop fever/chills, increased pain or other new/worsening symptoms please seek care urgently once again. Referrals: Abbie Esposito MD [ [facility] STAFF PHYSICIAN] - Oleg Thibodeaux MD [Primary Care Provider] - Medical Decision Making Patient is a 34-year-old female presenting today with chief complaint of vaginal discharge, rectal ecchymosis and vaginal prolapse. States that the prolapse symptoms have been intermittent. Reports that she is scheduled for surgery through women's wellness. States that recently particularly after having intercourse this morning, she began noting enlarged lymph nodes in and around her vagina. States that she just been having these in the axilla and around her neck. She reports that these enlarged and then crash a clear fluid. States his vaginal discharge is very unusual for her. She states that she has been having fevers at home, currently afebrile. Denies abdominal pain. States that she has been in a monogamous relationship and does not believe that she had any exposure to 2 sexually transmitted infections. On exam patient is very animated, anxious appearing. Initially in the room, she was eating popcorn. Shortly after going into the room however, she began crying and flailing her arms when describing her current symptoms. When I questioned the patient regarding her affect, she reports that she has a history of multiple psychiatric conditions. She denies any illicit drug use today although she states that she has used methamphetamines historically, as recent as last week. Patient is on methadone. She does have a history of ADD, anxiety, cocaine abuse, opioid dependence, bipolar disorder. She states that she lives with her significant other who brought her in. She states that she is safe where she lives. She denies suicidal or homicidal ideation and alert, appropriate and oriented. Patient is very anxious during, very animated. What she initially been perceiving as lymphadenopathy in her neck is more consistent with muscle spasm, I do not palpate any lymphadenopathy. I do not appreciate any axillary lymphadenopathy and certainly none that are draining. Patient's abdomen is benign. I do not palpate any lymphadenopathy in her groin. Has not appreciate any ecchymosis or trauma to her rectum. No enlarged hemorrhoids. I do not see any vaginal discharge at this time. Did not appreciate any evidence to suggest an abscess, cyst, prolapse. No lesions to suggest herpetic infection or other skin issue. Scant amount of normal- appearing vaginal discharge in the vaginal vault, normal cervical os. Testing for vaginal pack screen as well as GC and chlamydia was sent. Normal bimanual exam. I attempted to reassure the patient she did become even more animated and was trying to have me repetitively reexamine her genitals. I did offer her continued reassurance and she did eventually seem to calm down. I did advise her that the vaginal past screens would be back this evening. She would prefer to go home and have me call her with results. She does not want to wait for the results in the ED. I did advise her that her GC and chlamydia testing would take a few days to come back. I advised that we will call her with any positive results. I encouraged that she follow-up with women's wellness this week for reevaluation. I also advised that she discuss her concerns of potential lymphadenopathy with her primary care. Return precautions were discussed. All of her questions and concerns were addressed and she is in agreement this plan. Patient positive for BV. Called the cell phone she gave me at the time of her departure, . Also attempted number in her chart [phone]. First had no answer, message was left. Second number without ability to leave message. Will have care management reach out ot her again tomorrow. HPI General Mode of arrival: ambulatory . Date/Time Provider Initiated Documentation: 07/08/20 19:12 . Limitations to Documentation: no limitations . Information obtained by: patient, RN notes reviewed and old records reviewed . History of Present Illness 34 year old F presents to the emergency department with the chief complaint of vaginal discharge, described as severe, Quality is described as other (unclear if she is having pain), and is localized to the genitals. Patient started experiencing this hour(s) and it has been constant. No relieving factors improve symptom(s), No exacerbating factors reported . Patient notes fever/chills (fevers at home); denies cough, diaphoresis and shortness of breath. Patient did receive the following treatments prior to arrival, none Related Data Home Medications Medication Instructions Recorded Confirmed albuterol sulfate [AccuNeb] 0.63 mg INHALATION PRN PRN 09/22/12 06/04/19 methadone 110 mg PO DAILY 12/03/17 06/12/19 lidocaine [Lidoderm] 1 patch TOPICAL Q24H #4 patch 01/11/19 06/12/19 albuterol sulfate 90 mcg/actuation 2 puff IH Q6H PRN 03/22/19 06/12/19 aerosol inhaler fluticasone propionate 110 1 puff IH BID 03/22/19 06/12/19 mcg/actuation HFA aerosol inhaler aripiprazole [Abilify] 5 mg PO DAILY 06/04/19 06/12/19 hydroxyzine pamoate [Vistaril] 25 mg PO QHS PRN 06/04/19 06/12/19 trazodone 150 mg PO QHS 06/04/19 06/12/19 gabapentin 600 mg PO BID 07/08/20 07/08/20 Previous Rx's Medication Instructions Recorded lidocaine [Lidoderm] 1 patch TOPICAL Q24H #4 patch 01/11/19 Allergies Allergy/AdvReac Type Severity Reaction Status Date / Time clindamycin Allergy Severe Swelling/Ed Unverified 07/08/20 19:51 toya ibuprofen Allergy Intermediate Swelling/Ed Unverified 06/12/19 12:16 toya indomethacin Allergy Intermediate Swelling/Ed Unverified 06/12/19 12:16 toya latex Allergy Mild Itching Unverified 06/12/19 12:16 Latex, Natural Rubber Allergy Mild Skin Rash Unverified 06/12/19 12:16 atomoxetine [From Strattera] Allergy Unverified 06/12/19 12:16 methylphenidate Allergy Unverified 06/12/19 12:16 [From Concerta] General NAVID: 4 Review of Systems Constitutional Constitutional: Reports as per HPI, Denies chills, Denies fatigue, Reports fever(s) and Denies headache(s) ENT Ears, Nose, Mouth, and Throat: Denies headache(s) Cardiovascular Cardiovascular: Reports as per HPI, Denies chest pain and Denies dyspnea Respiratory Respiratory: Reports as per HPI, Denies cough and Denies dyspnea Gastrointestinal Gastrointestinal: Reports as per HPI Genitourinary Genitourinary: Denies abnormal vaginal bleeding, Reports metrorrhagia (LMP 2 weeks ago), Denies hematuria, Denies genital pruritis, Reports genital lesions, Reports dyspareunia, Denies dysuria, Reports pelvic pain, Reports prolapse symptoms, Denies flank pain, Reports vaginal discharge (gush of clear fluid), Denies vaginal dryness, Reports vaginal odor and Denies vaginal pruritus Musculoskeletal Musculoskeletal: Reports as per HPI and Denies back pain Integumentary/Breasts Skin/Breast: Reports as per HPI and Denies rash Neurologic Neurologic: Reports as per HPI and Denies headache(s) Endocrine Endocrine: Denies fatigue and Reports other (enlarged lymphnodes) [facility] Medical History (Updated 07/08/20 @ 20:20 by LANNY Miranda) Acne ADD (attention deficit disorder) Anxiety Cocaine abuse Dental abscess Depressive disorder History of drug abuse Latex allergy Low back pain Lumbar radiculopathy Opioid dependence Plantar fasciitis Rectocele Smoker Soft tissue abscess Urge urinary incontinence Surgical History Hx of tubal ligation S/P excision of lipoma low back, 2010 at [facility] Family History Son Idiopathic thrombocytopenic purpura (ITP) Social History Smoking/Tobacco Use Status: Current every day Tobacco Type: cigarettes Smoking packs per day: 0.5 Smoking cigarettes per day: 10.0 Smoking risk assessment performed?: Yes Alcohol Intake: never Drug use: Occasionally Substance use type: former substance user and crack/cocaine Details: daily methadone Number of Children: 2 current occupation: Unemployed Current gender identity: female Seatbelt use: always Do you feel safe at home: Yes Do you feel safe in your relationship?: Yes Female Reproductive History Menstrual control method: permanent sterilization History History 3 Para 2 Hx # Term Pregnancies Multiple births Hx # Pregnancies Ectopic pregnancies AB induced Hx Number of Living Children AB spontaneous Exam Const General: cooperative, healthy appearing, no acute distress, well developed, anxious and other (patient is very animated, moving quickly, eating poptarts, crying) Nutritional Appearance: average body habitus and well nourished Orientation: alert and awake HENRI Head: normal to inspection Mouth: moist mucous membranes Neck Neck: normal visual inspection, full ROM, no lymphadenopathy and no meningeal signs Resp Effort & Inspection: normal respiratory effort, able to speak in complete sentences and no respiratory distress Auscultation: clear to auscultation bilaterally, no rales, no rhonchi and no wheezes Cardio Rate: regular rate Rhythm: regular rhythm Heart Sounds: S1 normal and S2 normal GI Inspection: normal to inspection Palpation: soft, no hepatosplenomegaly and nontender Rectal Exam - female: visual inspection normal External Female Exam: normal external appearance, normal appearance of the urethra, no erythema, no tenderness externally, no external swelling, no lesions, no lacerations, no ecchymosis, No urethral discharge and No Bartholin cyst Speculum Exam - Vagina: normal appearance of the vagina, normal vaginal discharge, normal vaginal discharge, vagina not atrophic, no cysts, not erythematous, no lacerations, no lesions, No vaginal bleeding, No tissue present in vagina, no swelling and nontender Speculum Exam - Cervix: normal appearance of the cervix and nontender Bimanual Exam- Vagina & Uterus: normal bimanual exam, normal palpation, No tender and no cervical motion tenderness Bimanual Exam- Adnexa, other: normal adnexae OB/External & Speculum: no tissue noted in vagina and No vaginal bleeding Back/Spine/Pelvis Back: no CVA tenderness Skin General skin exam: no rashes or lesions noted Trauma: no lacerations or abrasions Neuro General: patient alert and patient awake Cognition: normal cognition Speech: speech normal Gait: normal gait Extrem General: normal to inspection (no palpable axillary lymphadenopathy) Psych Appearance: grossly normal and disheveled Mental Status: mental status grossly normal Speech and Movement: agitated and restless Mood: anxious mood Affect: labile affect, animated and anxious affect Attitude: cooperative Thought Process: perseverating Thought Content: normal
[2020-07-08 19:26] VITALS: BP 126/94; PULSE 119; RESP 22; TEMP 36.7; O2SAT 95
[2020-07-10 15:21] LABS: Chlamydia Result Negative (Negative); GC Result Negative (Negative)
== END 2020-07-08 20:25 | disposition home or self-care (01) ==
PROVIDERS: Emergency Provider Physician Assistant; PCP Internal Medicine
DX: N76.0 Acute vaginitis (principal); B96.89 Other specified bacterial agents as the cause of diseases classified elsewhere
CPT/HCPCS: 36415; 81025; 87491; 87591; 99284; 87480; 87510; 87660; 99283

== ENCOUNTER 2020-07-31 16:22 | Outpatient (REF) | payer MEDICARE, MEDICAID, SELFPAY ==
[2020-07-31 14:21] LABS: FREE T4 0.99 ng/dL (0.76-1.46); TSH 1.41 uIU/mL (0.36-3.74)
== END 2020-07-31 16:23 | disposition home or self-care (01) ==
LOC: NCHCN 16:22
PROVIDERS: PCP Internal Medicine; Visit Provider Internal Medicine
DX: E07.9 Disorder of thyroid, unspecified (principal); F45.8 Other somatoform disorders; F31.9 Bipolar disorder, unspecified; F41.9 Anxiety disorder, unspecified
CPT/HCPCS: 84439; 84443

== ENCOUNTER 2020-08-16 16:52 | Emergency (ER) | payer MEDICARE, MEDICAID, SELFPAY ==
[2020-08-16 16:57] VITALS: BP 145/99; PULSE 107; TEMP 36.8; O2SAT 99
[2020-08-16 17:25] VITALS: BP 150/104; PULSE 108; RESP 20; TEMP 36.9; O2SAT 98
[2020-08-16 17:41] VITALS: RESP 20
--- NOTE | 2020-08-16 17:55 | ED.GENADUL_ITS ---
Discharge Plan Disposition Patient Disposition: HOME Condition: Stable Discharge Details Clinical Impression: Anxiety, Asthma Primary Care Provider: Oleg Thibodeaux ED Provider: Lorene Jack Home Meds and New Rx's Prescriptions: New albuterol sulfate 90 mcg/actuation HFA aerosol inhaler 2 puff IH QID PRN (Reason: shortness of breath or wheezing) Qty: 8 RF: 0 Continued Flovent HFA 110 mcg/actuation HFA aerosol inhaler 1 puff IH BID RF: 0 albuterol sulfate [Ventolin HFA] 90 mcg/actuation HFA aerosol inhaler 2 puff IH Q6H PRNRF: 0 albuterol sulfate [AccuNeb] 0.63 MG/3 ML solution for nebulization 0.63 mg Inhalation PRN PRNRF: 0 methadone 10 MG/ML concentrate 45 mg PO DAILY RF: 0 hydroxyzine pamoate [Vistaril] 25 mg Capsule 25 mg PO QHS PRNRF: 0 No Action gabapentin 600 mg tablet 600 mg PO DAILY RF: 0 Discharge Instructions Instructions: Asthma (ED), Anxiety (ED) Additional Instructions: Follow up with primary care provider in 3-5 days. Return to ED sooner if any worsening or concerns. Increase oral fluids. Please take Tylenol or Ibuprofen with food every 4-6 hours as needed for pain and swelling. Please follow-up with PCP regarding the ED ultrasound of your thyroid. Please do not smoke anymore Suboxone or heroin that will not help your breathing or anxiety. Use Inhaler every 2-4 hours as directed. Referrals: Oleg Thibodeaux MD [Primary Care Provider] - Medical Decision Making 34-year-old female presents to the ER chief complaint of trouble swallowing, swelling, shortness of breath, increased anxiety. She did endorse smoking dope, heroin and suboxone a couple days ago because they decreased her Me thadone dose at the [facility],, she is a daily smoker. She does have a history of asthma as well and isout of her albuterol inhaler. She has recently been diagnosed with thyroid problems and is being followed by Dr. Thibodeaux She is speaking in full sentences on initial exam no stridor, she is handling her secretions well. At this time Decadron 10 mg IV p.o. ordered, she presents albuterol inhaler, 0.5 mg lorazepam. 185: Patient reevaluation, patient states that her breathing is much better. Her heart rate does decrease to the 83 when talking her down, at this time I do feel this is anxiety related to her she is not follow-up for, also could have something to do with her smoking heroin and asthma exacerbation. Patient to be sent home with an albuterol inhaler instructions to follow-up with PCP and continuation with her normal medications. Instructed to stop smoking heroin. 193: Patient is ambulatory and hemodynamically stable prior to discharge, breathing eupneic. Patient has ride home. HPI General Mode of arrival: ambulatory . Date/Time Provider Initiated Documentation: 08/16/20 17:21 . Limitations to Documentation: no limitations . Information obtained by: patient . HPI Narrative: 34-year-old female presents to the ER chief complaint of trouble swallowing, swelling, shortness of breath, increased anxiety. She did endorse smoking dope, heroin and suboxone a couple days ago because they decreased her Methadone dose at the [facility],, she is a daily smoker. She does have a history of asthma as well and isout of her albuterol inhaler. She has recently been diagnosed with thyroid problems and is being followed by Dr. Thibodeaux She is speaking in full sentences on initial exam no stridor, she is handling her secretions well. Related Data Home Medications Medication Instructions Recorded Confirmed albuterol sulfate [AccuNeb] 0.63 mg INHALATION PRN PRN 09/22/12 08/16/20 methadone 45 mg PO DAILY 12/03/17 08/16/20 albuterol sulfate 90 mcg/actuation 2 puff IH Q6H PRN 03/22/19 08/16/20 aerosol inhaler fluticasone propionate 110 1 puff IH BID 03/22/19 08/16/20 mcg/actuation HFA aerosol inhaler hydroxyzine pamoate [Vistaril] 25 mg PO QHS PRN 06/04/19 06/12/19 gabapentin 600 mg PO DAILY 07/08/20 08/16/20 albuterol sulfate 2 puff IH QID PRN #8 gm 08/16/20 Previous Rx's Medication Instructions Recorded albuterol sulfate 2 puff IH QID PRN #8 gm 08/16/20 Allergies Allergy/AdvReac Type Severity Reaction Status Date / Time clindamycin Allergy Severe Swelling/Ed Unverified 08/16/20 17:08 toya ibuprofen Allergy Intermediate Swelling/Ed Unverified 08/16/20 17:08 toya indomethacin Allergy Intermediate Swelling/Ed Unverified 08/16/20 17:08 toya latex Allergy Mild Itching Unverified 08/16/20 17:08 Latex, Natural Rubber Allergy Mild Skin Rash Unverified 08/16/20 17:08 atomoxetine [From Strattera] Allergy Unverified 08/16/20 17:08 methylphenidate Allergy Unverified 08/16/20 17:08 [From Concerta] General Stated Complaint: GenMedical NAVID: 3 Review of Systems All systems reviewed & are unremarkable except as noted in HPI and below Constitutional Constitutional: Reports chills, Reports excessive sweating, Reports fatigue, Reports headache(s) and Denies snoring Eyes Eyes: Reports itchy eyes ENT Ears, Nose, Mouth, and Throat: Reports dysphagia, Reports headache(s), Reports nasal congestion, Reports nasal discharge and Reports neck pain Respiratory Respiratory: Reports as per HPI, Denies hemoptysis, Denies pain on inspiration, Denies snoring, Denies stridor and Denies wheezing Gastrointestinal Gastrointestinal: Reports dysphagia Musculoskeletal Musculoskeletal: Reports neck pain Neurologic Neurologic: Reports headache(s) Endocrine Endocrine: Reports as per HPI, Reports cold intolerance, Reports excessive sweating, Reports fatigue and Reports heat intolerance Allergic/Immunologic Allergic/Immunologic: Reports itchy eyes, Reports seasonal rhinorrhea and Denies wheezing [facility], [facility] Medical History (Updated 08/16/20 @ 18:55 by Lorene Jack) Acne ADD (attention deficit disorder) Anxiety Cocaine abuse Dental abscess Depressive disorder History of drug abuse Latex allergy Low back pain Lumbar radiculopathy Opioid dependence Plantar fasciitis Rectocele Smoker Soft tissue abscess Urge urinary incontinence Surgical History Hx of tubal ligation S/P excision of lipoma low back, 2010 at [facility] Family History Son Idiopathic thrombocytopenic purpura (ITP) Social History Smoking/Tobacco Use Status: Current every day Tobacco Type: cigarettes Smoking packs per day: 0.5 Smoking cigarettes per day: 10.0 Smoking risk assessment performed?: Yes Alcohol Intake: never Drug use: Occasionally Substance use type: former substance user and crack/cocaine Details: daily methadone Number of Children: 2 current occupation: Unemployed Current gender identity: female Seatbelt use: always Do you feel safe at home: Yes Do you feel safe in your relationship?: Yes Female Reproductive History Menstrual control method: permanent sterilization History History 3 Para 2 Hx # Term Pregnancies Multiple births Hx # Pregnancies Ectopic pregnancies AB induced Hx Number of Living Children AB spontaneous Exam Narrative Exam Narrative: Constitutional: Alert and oriented x3. Tearful anxious initial exam. Appears stated age. Normal body habitus. Head: Normocephalic, no trauma. Eyes: Pupils PERRLA, Red reflex noted, EOM's intact. Eyelids symmetrical without lesions, discharge, or swelling. ENT: Bilateral TM's WNL, External ear normal to inspection, no mastoid TTP, swelling, or erythema, Nasal turbinates WNL, no nasal discharge. Normal dentition, Posterior pharynx WNL, no exudate. Uvula midline no swelling tonsils are 0 bilaterally, Chest: Mildly tachycardic, Normal S1, S2, distal pulses intact. Resp: Scattered expiratory wheezes throughout bilateral lung lucio, no rales, or rhonchi. Musculoskeletal: Normal gait, 5/5 strength to all four extremities. Skin: No suspicious rashes or lesions. Capillary refill less than 2 sec. Neurologic: Cranial nerves II-XII intact. Alert and oriented x 3. DTR's intact. Hematologic/Lymphatic: No ecchymosis, no lymphadenopathy. Course Vital Signs Vital signs: Vital Signs Temperature 36.8 C 08/16/20 16:57 Pulse 107 H 08/16/20 16:57 Blood Pressure 145/99 H 08/16/20 16:57 Pulse Oximetry 99 08/16/20 16:57 Temperature 36.9 C 08/16/20 17:25 Temperature Source Oral 08/16/20 17:25 Pulse 108 H 08/16/20 17:25 Respiratory Rate 20 08/16/20 17:41 Respiratory Effort 08/16/20 17:41 Respiratory Depth Normal 08/16/20 17:41 Respiratory Pattern Normal 08/16/20 17:41 Blood Pressure 150/104 H 08/16/20 17:25 Blood Pressure Position Sitting 08/16/20 16:57 Pulse Oximetry 98 08/16/20 17:25 Oxygen Delivery Method Room Air 08/16/20 17:25 Oxygen Flow Rate 0 08/16/20 17:25 Pain Level 0 08/16/20 16:57
[2020-08-16] MEDS: Albuterol HFA 8 GM 60 PUFF INH IH (18:10)
[2020-08-16] MEDS: Dexamethasone 10 MG/ML VIAL PO (18:10)
[2020-08-16 18:33] VITALS: BP 142/88; PULSE 100; RESP 20; O2SAT 98
[2020-08-16] MEDS: LORazepam 0.5 MG TAB PO (19:04)
[2020-08-16 19:06] VITALS: BP 144/83; PULSE 103; RESP 20; TEMP 36.6; O2SAT 98
== END 2020-08-16 19:11 | disposition home or self-care (01) ==
PROVIDERS: Emergency Provider Registered Nurse Emergency; PCP Internal Medicine
DX: F41.8 Other specified anxiety disorders (principal); R13.10 Dysphagia, unspecified; J45.909 Unspecified asthma, uncomplicated; F17.210 Nicotine dependence, cigarettes, uncomplicated; F11.10 Opioid abuse, uncomplicated
CPT/HCPCS: 99283; J1100

== ENCOUNTER 2020-08-18 17:41 | Emergency (ER) | payer MEDICARE, MEDICAID, SELFPAY ==
[2020-08-18 17:46] VITALS: BP 142/88; PULSE 94; RESP 20; TEMP 36.6; O2SAT 99
--- NOTE | 2020-08-18 17:49 | W.ED.GENAD ---
Discharge Plan Disposition Patient Disposition: HOME Condition: Stable Discharge Details Clinical Impression: Anxiety, Shortness of breath, Hypokalemia Primary Care Provider: Oleg Tihbodeaux ED Provider: Ney Smith Home Meds and New Rx's Prescriptions: Continued Flovent HFA 110 mcg/actuation HFA aerosol inhaler 1 puff IH BID RF: 0 albuterol sulfate [Ventolin HFA] 90 mcg/actuation HFA aerosol inhaler 2 puff IH Q6H PRNRF: 0 albuterol sulfate [AccuNeb] 0.63 MG/3 ML solution for nebulization 0.63 mg Inhalation PRN PRNRF: 0 methadone 10 MG/ML concentrate 60 mg PO DAILY RF: 0 gabapentin 600 mg tablet 600 mg PO DAILY RF: 0 albuterol sulfate 90 mcg/actuation HFA aerosol inhaler 2 puff IH QID PRN (Reason: shortness of breath or wheezing) Qty: 8 RF: 0 Discharge Instructions Instructions: Anxiety (ED), Dyspnea (ED), Hypokalemia (ED) Additional Instructions: Potassium was slightly low and was replenished in the ER. Laboratory values are otherwise unremarkable for acute emergent process. I do recommend that she discontinue using any illicit drugs. Please watch for new or worsening symptoms and return to the ER for any concerns. Lastly, I recommend contacting your primary care provider on Thursday to discuss your ongoing symptoms and outpatient reevaluation. Medical Decision Making 34-year-old female with past medical history of anxiety, asthma, drug abuse, presents to the ER today reporting ongoing anxiety, shortness of breath for many months. She has been seen by Dr. Thibodeaux and scheduled to have a thyroid ultrasound the first of next month. She is concerned that her radiator in her home is putting off a vapor or smoke; however, is not affecting anyone else. Clinically she is anxious, tearful but appears well, nontoxic. She is speaking in full sentences, has moist mucous membranes, no stridor, or difficulty managing her airway. Discussed options. Will obtain CBC, CMP, chest x-ray, D-dimer. Given the duration of her symptoms I believe this work-up is reasonable however I do question if there is a component of anxiety and polysubstance abuse which could be exacerbating her symptoms causing multiple visits both to the ER and to her primary care provider. Low suspicion for acute pneumonia, pneumothorax, PE, etc. Clinically she does not appear dehydrated. Given she states kidney pain, will also obtain urinalysis. There is no leg pain or swelling, she has no evidence of fever, tachypnea, tachycardia, or hypoxia. Patient is comfortable with this plan. Potassium 3.3, will replenish orally. Laboratory values otherwise unremarkable for obvious emergent process. Tox screen positive for amphetamines, benzodiazepines, cocaine, methadone. Chest x-ray negative per radiology. Discussed findings with patient. Patient is no longer anxious. She is no longer tearful. She was given strict return precautions. Otherwise she will contact her primary care provider first thing Thursday morning to discuss her ongoing symptoms and outpatient work-up. Medical Records Medical records reviewed: Yes I reviewed the patient's medical records. Imaging Data Radiologic Study: Attestation: I personally reviewed and interpreted this imaging study as follows: Imaging: X-Ray Radiologist's impression: Chest x-ray negative Lab Data Lab results reviewed: Yes I reviewed the patient's lab results. Labs: Laboratory Tests Range/Units 08/18/20 08/18/20 08/18/20 18:20 18:20 18:25 WBC (4.4-10.8) 10^3/uL RBC (3.93-5.22) 10^6/uL Hgb (11.2-15.7) g/dL Hct (36.0-46.0) % MCV (80-95) fL MCH (27.0-33.0) pg MCHC (32.0-36.0) % RDW (11.7-14.6) % Plt Count (130-400) 10^3/uL MPV (8.0-11.0) fL Immature Gran % Neutrophils % Lymphocytes % Monocytes % Eosinophils % Basophils % Nucleated RBC % % Absolute Neutrophils (1.2-6.7) 10^3/uL Absolute Lymphocytes (1.2-3.4) 10^3/uL Absolute Monocytes (0.1-0.8) 10^3/uL Absolute Eosinophils (0.0-0.7) 10^3/uL Absolute Basophils (0.0-0.2) 10^3/uL D-Dimer (<500) ng/mlFEU Sodium (136-145) mmol/L 141 Potassium (3.5-5.1) mmol/L 3.3 L Chloride (98-107) mmol/L 102 Carbon Dioxide (21.0-32.0) mmol/L 30.0 Anion Gap (3-11) mmol/L 9.0 BUN (7-18) mg/dL 9 Creatinine (0.55-1.02) mg/dL 0.8 Estimated GFR/1.73 m2 (mL/min/1.73m2) >= 60.00 Glucose (74-106) mg/dL 89 Calcium (8.5-10.1) mg/dL 8.5 Total Bilirubin (0.2-1.0) mg/dL 0.2 AST (15-37) U/L 20 ALT (14-59) U/L 39 Alkaline Phosphatase (46-116) U/L 52 Total Protein (6.4-8.2) g/dL 7.6 Albumin (3.4-5.0) g/dL 4.0 Urine Color (Yellow) Yellow Urine Clarity (Clear) Clear Urine pH (5-8) 6.0 Ur Specific [place] (1.005-1.025) >= 1.030 H Urine Protein (Negative) mg/dL Negative Urine Ketones (Negative) mg/dL Negative Urine Blood (Negative) Small H Urine Nitrite (Negative) Negative Urine Bilirubin (Negative) Negative Urine Urobilinogen (Up TO 0.2) EU/dL 0.2 Ur Leukocyte Esterase (Negative) Negative Urine RBC (0-2) HPF 0-2 Urine WBC (0-5) HPF Negative Ur Epithelial Cells (Negative) HPF Rare Urine Crystals (Negative) HPF Negative Urine Bacteria (Negative) HPF Negative Urine Casts (Negative) LPF Negative Urine Mucus (Negative) Negative Urine Other (Negative) Negative Ur Culture Indicated? No Urine Glucose (Negative) mg/dL Negative Urine Opiates Screen (Negative) Negative Urine Methadone Screen (Negative) Positive A Ur Barbiturates Screen (Negative) Negative Ur Tricyclics Screen (Negative) Negative Ur Amphetamines Screen (Negative) Positive A U Benzodiazepines Scrn (Negative) Positive A Urine Cocaine Screen (Negative) Positive A Ur THC Screen (Negative) Negative Range/Units 08/18/20 08/18/20 18:25 18:25 WBC (4.4-10.8) 10^3/uL 5.81 RBC (3.93-5.22) 10^6/uL 3.93 Hgb (11.2-15.7) g/dL 12.0 Hct (36.0-46.0) % 36.5 MCV (80-95) fL 92.9 MCH (27.0-33.0) pg 30.5 MCHC (32.0-36.0) % 32.9 RDW (11.7-14.6) % 12.7 Plt Count (130-400) 10^3/uL 311 MPV (8.0-11.0) fL 10.0 Immature Gran % 0.3 Neutrophils % 44.8 Lymphocytes % 42.5 Monocytes % 8.8 Eosinophils % 3.1 Basophils % 0.5 Nucleated RBC % % 0 Absolute Neutrophils (1.2-6.7) 10^3/uL 2.60 Absolute Lymphocytes (1.2-3.4) 10^3/uL 2.47 Absolute Monocytes (0.1-0.8) 10^3/uL 0.51 Absolute Eosinophils (0.0-0.7) 10^3/uL 0.18 Absolute Basophils (0.0-0.2) 10^3/uL 0.03 D-Dimer (<500) ng/mlFEU 244 Sodium (136-145) mmol/L Potassium (3.5-5.1) mmol/L Chloride (98-107) mmol/L Carbon Dioxide (21.0-32.0) mmol/L Anion Gap (3-11) mmol/L BUN (7-18) mg/dL Creatinine (0.55-1.02) mg/dL Estimated GFR/1.73 m2 (mL/min/1.73m2) Glucose (74-106) mg/dL Calcium (8.5-10.1) mg/dL Total Bilirubin (0.2-1.0) mg/dL AST (15-37) U/L ALT (14-59) U/L Alkaline Phosphatase (46-116) U/L Total Protein (6.4-8.2) g/dL Albumin (3.4-5.0) g/dL Urine Color (Yellow) Urine Clarity (Clear) Urine pH (5-8) Ur Specific [place] (1.005-1.025) Urine Protein (Negative) mg/dL Urine Ketones (Negative) mg/dL Urine Blood (Negative) Urine Nitrite (Negative) Urine Bilirubin (Negative) Urine Urobilinogen (Up TO 0.2) EU/dL Ur Leukocyte Esterase (Negative) Urine RBC (0-2) HPF Urine WBC (0-5) HPF Ur Epithelial Cells (Negative) HPF Urine Crystals (Negative) HPF Urine Bacteria (Negative) HPF Urine Casts (Negative) LPF Urine Mucus (Negative) Urine Other (Negative) Ur Culture Indicated? Urine Glucose (Negative) mg/dL Urine Opiates Screen (Negative) Urine Methadone Screen (Negative) Ur Barbiturates Screen (Negative) Ur Tricyclics Screen (Negative) Ur Amphetamines Screen (Negative) U Benzodiazepines Scrn (Negative) Urine Cocaine Screen (Negative) Ur THC Screen (Negative) HPI General Mode of arrival: ambulatory. Date/Time Provider Initiated Documentation: 08/18/20 17:42. Limitations to Documentation: no limitations. Information obtained by: patient. HPI Narrative: This is a 34-year-old female with past medical history of anxiety, asthma, drug abuse, ADD, depression, presenting to the ER for she describes a several month history of anxiety, shortness of breath, intermittent swelling in various locations of her body. She states that she believes that when her house he set up there is a smoker paper coming from her radiator which is causing her symptoms to worsen. This vapor does not affect anyone else in the household. She states that she has been seen by her primary care provider for this plan blood work is always normal, she is being evaluated with an ultrasound on the first of next month for her thyroid. Patient was seen in the ER 2 days ago for the same, subsequently given an albuterol inhaler and felt better. She admits to smoking dope, heroin and suboxone approximately 4 days ago because they decreased her Methadone dose at the [facility] [place]. She does smoke cigarettes daily. She denies any pain, but reports pressure to her upper back. She denies recent illness or trauma. She states that she is doing the best she can to handle her anxiety but at times feels like she is going crazy. She later tells me several months ago her kidneys hurt, concerned about dehydration but reports no vomiting or diarrhea. She is able to tolerate p.o. intake. She is speaking in full sentences on initial exam no stridor, she is handling her secretions well. Related Data Home Medications Medication Instructions Recorded Confirmed albuterol sulfate [AccuNeb] 0.63 mg INHALATION PRN PRN 09/22/12 08/18/20 methadone 60 mg PO DAILY 12/03/17 08/18/20 albuterol sulfate 90 mcg/actuation 2 puff IH Q6H PRN 03/22/19 08/18/20 aerosol inhaler fluticasone propionate 110 1 puff IH BID 03/22/19 08/16/20 mcg/actuation HFA aerosol inhaler gabapentin 600 mg PO DAILY 07/08/20 08/18/20 albuterol sulfate 2 puff IH QID PRN #8 gm 08/16/20 08/18/20 Previous Rx's Medication Instructions Recorded albuterol sulfate 2 puff IH QID PRN #8 gm 08/16/20 Allergies Allergy/AdvReac Type Severity Reaction Status Date / Time clindamycin Allergy Severe Swelling/Ed Unverified 08/18/20 17:50 toya ibuprofen Allergy Intermediate Swelling/Ed Unverified 08/18/20 17:50 toya indomethacin Allergy Intermediate Swelling/Ed Unverified 08/18/20 17:50 toya latex Allergy Mild Itching Unverified 08/18/20 17:50 Latex, Natural Rubber Allergy Mild Skin Rash Unverified 08/18/20 17:50 atomoxetine [From Strattera] Allergy Unverified 08/18/20 17:50 methylphenidate Allergy Unverified 08/18/20 17:50 [From Concerta] General NAVID: 3 Review of Systems Constitutional Constitutional: Denies fatigue, Denies fever(s), Denies headache(s) and Denies weakness ENT Ears, Nose, Mouth, and Throat: Denies headache(s) and Denies neck pain Cardiovascular Cardiovascular: Denies chest pain and Reports dyspnea Respiratory Respiratory: Denies cough, Reports dyspnea and Reports wheezing (Not now) Gastrointestinal Gastrointestinal: Denies abdominal pain, Denies nausea and Denies vomiting Genitourinary Genitourinary: Denies dysuria Musculoskeletal Musculoskeletal: Reports back pain and Denies neck pain Integumentary/Breasts Skin/Breast: Denies rash Neurologic Neurologic: Denies headache(s) and Denies weakness Psychiatric Psychiatric: Reports anxiety and Denies depression Endocrine Endocrine: Denies fatigue Allergic/Immunologic Allergic/Immunologic: Reports other (eye swelling bilaterally, not currently) [facility] Medical History (Updated 08/18/20 @ 19:34 by LANNY Navarrete) Acne ADD (attention deficit disorder) Anxiety Cocaine abuse Dental abscess Depressive disorder History of drug abuse Latex allergy Low back pain Lumbar radiculopathy Opioid dependence Plantar fasciitis Rectocele Smoker Soft tissue abscess Urge urinary incontinence Surgical History Hx of tubal ligation S/P excision of lipoma low back, 2010 at [facility] Family History Son Idiopathic thrombocytopenic purpura (ITP) Social History Smoking/Tobacco Use Status: Current every day Tobacco Type: cigarettes Smoking packs per day: 0.5 Smoking cigarettes per day: 10.0 Smoking risk assessment performed?: Yes Alcohol Intake: never Drug use: Occasionally Substance use type: former substance user and crack/cocaine Details: daily methadone Number of Children: 2 current occupation: Unemployed Current gender identity: female Seatbelt use: always Do you feel safe at home: Yes Do you feel safe in your relationship?: Yes Female Reproductive History Menstrual control method: permanent sterilization History History 3 Para 2 Hx # Term Pregnancies Multiple births Hx # Pregnancies Ectopic pregnancies AB induced Hx Number of Living Children AB spontaneous Exam Const General: cooperative, comfortable and anxious (Tearful) Orientation: alert, awake and oriented x3 HENMT Head: normal to inspection, normocephalic and atraumatic Ears: external ears normal, TM's normal bilaterally and EAC's normal General nose exam: external nose normal Face and sinus: normal facial exam Mouth: moist mucous membranes Throat: posterior oropharynx normal Eyes General: appearance normal, both eyes and all related structures Alignment and Position: alignment normal Periorbital: periorbital findings normal Eyelids: eyelids normal Conjunctivae: conjunctivae normal Sclera: sclerae normal Cornea: corneas normal Pupils: PERRL EOM: EOM intact bilaterally Direct ophthalmoscopy: normal light reflex Neck Neck: normal visual inspection, full ROM, no lymphadenopathy, no meningeal signs, trachea midline, supple and nontender Resp Effort & Inspection: normal respiratory effort and able to speak in complete sentences Auscultation: clear to auscultation bilaterally Cardio Rate: regular rate Rhythm: regular rhythm Back/Spine/Pelvis Back: No back tenderness Skin General skin exam: no rashes or lesions noted Neuro General: patient alert, patient awake, patient oriented x3, moves all extremities and no focal motor deficits Cognition: normal cognition Speech: speech normal Gait: normal gait Motor: muscle tone normal throughout Sensory Exam: no sensory deficits noted Extrem General: normal to inspection, full ROM, capillary refill normal, no pedal edema and no calf tenderness Psych Appearance: grossly normal Mental Status: mental status grossly normal Speech and Movement: pressured speech Mood: anxious mood Affect: anxious affect Attitude: cooperative
--- NOTE | 2020-08-18 18:00 | DI.RAD_ITS ---
EXAM: XR CHEST 2V PA LATERAL CLINICAL HISTORY: sob x many months. TECHNIQUE: 2D digital imaging was performed. COMPARISON: CR XR CHEST 2V PA LATERAL from 01/11/2019 FINDINGS: Heart size is normal. The mediastinum is not widened. Lungs are clear. No infiltrates nor pleural effusions. IMPRESSION: No acute pulmonary findings.no significant change compared to december 2018 DATA REPOSITORY: RADIATION DOSE DELIVERED:
[2020-08-18 18:23] VITALS: RESP 18
[2020-08-18 18:38] VITALS: RESP 20
[2020-08-18 18:39] LABS: Abs Immature Grans 0.02 10^3/uL (0.0-0.06); Absolute Basophil Count 0.03 10^3/uL (0.0-0.2); Absolute Eosinophil Count 0.18 10^3/uL (0.0-0.7); Absolute Lymphocyte Count 2.47 10^3/uL (1.2-3.4); Absolute Monocyte Count 0.51 10^3/uL (0.1-0.8); Basophils % 0.5; Eosinophils % 3.1; HCT 36.5 % (36.0-46.0); Immature Grans % 0.3; Lymphocytes % 42.5; MCH 30.5 pg (27.0-33.0); MCHC 32.9 % (32.0-36.0); MCV 92.9 fL (80-95); Monocytes % 8.8; Neutrophils % 44.8; Nucleated RBC 0 %; Platelet Count 311 10^3/uL (130-400); RBC 3.93 10^6/uL (3.93-5.22); RDW 12.7 % (11.7-14.6); RDW-SD 43.7 fL; WBC 5.81 10^3/uL (4.4-10.8)
[2020-08-18 18:51] LABS: Bilirubin Negative (Negative); Blood Small (Negative); Clarity Clear (Clear); Glucose Negative (Negative); Ketones Negative (Negative); Leukocyte Esterase Negative (Negative); Nitrite Negative (Negative); Specific Gravity >= 1.030 (1.005-1.025); Urobilinogen 0.2 EU/dL (Up TO 0.2)
[2020-08-18 18:58] LABS: ALT 39 U/L (14-59); AST 20 U/L (15-37); Alkaline Phosphatase 52 U/L (46-116); BUN 9 mg/dL (7-18); Bilirubin, Total 0.2 mg/dL (0.2-1.0); CREATININE 0.8 mg/dL (0.55-1.02); Calcium 8.5 mg/dL (8.5-10.1); Chloride 102 mmol/L (98-107); Glucose 89 mg/dL (74-106); Potassium 3.3 mmol/L (3.5-5.1); Sodium 141 mmol/L (136-145); Total Protein 7.6 g/dL (6.4-8.2)
[2020-08-18 18:59] LABS: *AMPHETAMINES SCREEN URINE POSITIVE (Negative); *BARBITURATES SCREEN URINE Negative (Negative); *BENZODIAZEPINES SCREEN URINE POSITIVE (Negative); Bacteria Negative HPF (Negative); C & S Indicated? No; Cannabinoids THC Negative (Negative); Casts Negative LPF (Negative); Cocaine Screen,Urine POSITIVE (Negative); Crystals Negative HPF (Negative); Epithelial Cells Rare HPF (Negative); METHADONE URINE SCREEN POSITIVE (Negative); Mucus Negative (Negative); OPIATES URINE SCREEN Negative (Negative); Other Cells Negative (Negative); RBC 0-2 HPF (0-2); WBC Negative HPF (0-5)
[2020-08-18 19:02] LABS: Tricyclic Antidepressants Negative (Negative)
--- NOTE | 2020-08-18 19:06 | DI.VRAD_ITS ---
PROCEDURE INFORMATION: Exam: XR Chest Exam date and time: 08/18/2020 6:49 PM Age: 34 years old Clinical indication: Shortness of breath; Patient HX: SOB TECHNIQUE: Imaging protocol: XR of the chest Views: 2 views. COMPARISON: CR XR CHEST 2V PA LATERAL 01/11/2019 10:37 AM FINDINGS: Lungs: Unremarkable. No consolidation. Pleural spaces: Unremarkable. No pleural effusion. No pneumothorax. Heart/Mediastinum: Unremarkable. No cardiomegaly. Bones/joints: Unremarkable. IMPRESSION: No acute findings. Dictated and Authenticated by: Reno Mark MD. Ordering:[id number] Brewster MD
[2020-08-18 19:13] LABS: D-Dimer 244 ng/mlFEU (<500)
[2020-08-18] MEDS: Potassium Chloride 20 MEQ TABCR 40 MEQ PO (19:23)
[2020-08-18 19:46] VITALS: BP 137/79; PULSE 100; RESP 16; TEMP 36.7; O2SAT 100
== END 2020-08-18 19:40 | disposition home or self-care (01) ==
PROVIDERS: Emergency Provider Physician Assistant; PCP Internal Medicine
DX: R06.02 Shortness of breath (principal); F41.9 Anxiety disorder, unspecified; E87.6 Hypokalemia
CPT/HCPCS: 36415; 80053; 80307; 99283; 71046; 81003; 81015; 85025; 85379

== ENCOUNTER 2022-04-09 10:23 | Emergency (ER) | payer MEDICARE, MEDICAID, SELFPAY ==
[2022-04-09 10:44] VITALS: BP 112/60; PULSE 79; RESP 20; TEMP 36.9; O2SAT 97
--- NOTE | 2022-04-09 11:03 | ED.GENADUL_ITS ---
Discharge Plan Disposition Patient Disposition: HOME Condition: Stable Discharge Details Clinical Impression: Other prolapse of vaginal manzano without mention of uterine prolapse Primary Care Provider: Oleg Thibodeaux ED Provider: Lorene Jack Home Meds and New Rx's Prescriptions: Continued fluticasone propionate [Flovent HFA] 110 mcg/actuation HFA aerosol inhaler 1 puff IH BID albuterol sulfate [Ventolin HFA] 90 mcg/actuation HFA aerosol inhaler 2 puff IH Q6H PRN albuterol sulfate [AccuNeb] 0.63 MG/3 ML solution for nebulization 0.63 mg Inhalation PRN PRN methadone 10 MG/ML concentrate 105 mg PO DAILY gabapentin 600 mg tablet 600 mg PO DAILY Rx Instructions: to cover until previous RX can be filled on 06/15 albuterol sulfate 90 mcg/actuation HFA aerosol inhaler 2 puff IH QID PRN (Reason: shortness of breath or wheezing) Qty: 8 0RF Discharge Instructions Instructions: Pelvic Pain in Women (ED) Additional Instructions: Please follow-up with PRESSURIZATION MECHANIC or women[facility] wellness in the next 1 to 2 weeks. You may call for an appointment. Today based on your exam I do not see any obvious prolapse. Please discuss with them options and have them do further evaluation. Please discontinue the use of the diva cup until you are cleared to do so by PRESSURIZATION MECHANIC. There is no evidence of urinary tract infection on your urine results. No evidence of anemia or excessive blood loss noted on your labs. Referrals: Amada Sumner DO [OSTEOPATHIC DOCTOR] - 2 weeks Discharge Data Discharge Date/Time-TO BE ENTERED AT DEPARTURE: 04/09/22 13:12 Medical Decision Making 36-year-old female presents to the ER with a chief complaint of a possible andrea rine prolapse which she reports that she is known about for a while. She states that she is recently been using a diva cup and is currently on her menses and has had any increased bleeding which is heavier than normal. She also endorses some dysuria, acid reflux, chills, and feeling sleepier than normal 1156: Pelvic exam performed with Karina CALLAHAN as witness patient tolerated well. Discussed anatomy with patient at length and discussed possible prolapse. She is under the impression it is her intestine that is prolapsing which I explained that it is very unlikely. I do not see any obvious signs of prolapse at this time. I did encourage her to use other methods besides the diva cup for her menses to decrease infection. I also encouraged her to reach follow-up with PRESSURIZATION MECHANIC to discuss this further and make an appointment. Lab is at bedside for blood draw at this time. Urine drug screen is positive for opiates, methadone, and cocaine. CBC shows no leukocytosis CMP also within normal limits, urinalysis shows moderate blood trace protein 10-20 RBCs. No evidence for UTI. Urine drug screen is positive for opiates methadone and cocaine. Patient placed on the care management list for follow-up with PRESSURIZATION MECHANIC and discussed home care. Patient discharged in hemodynamically stable condition. This text was generated using [employer]ation system, please disregard any oddities of phrase or misspellings. Medical Records Medical records reviewed: Yes I reviewed the patient's medical records. Lab Data Lab results reviewed: Yes I reviewed the patient's lab results. Labs: Laboratory Tests Range/Units 04/09/22 04/09/22 04/09/22 11:06 11:07 11:07 WBC (4.4-10.8) 10^3/uL RBC (3.93-5.22) 10^6/uL Hgb (11.2-15.7) g/dL Hct (36.0-46.0) % MCV (80-95) fL MCH (27.0-33.0) pg MCHC (32.0-36.0) % RDW (11.7-14.6) % Plt Count (130-400) 10^3/uL MPV (8.0-11.0) fL Immature Gran % Neutrophils % Lymphocytes % Monocytes % Eosinophils % Basophils % Nucleated RBC % (0.0-0.3) % Absolute Neutrophils (1.2-6.7) 10^3/uL Absolute Lymphocytes (1.2-3.4) 10^3/uL Absolute Monocytes (0.1-0.8) 10^3/uL Absolute Eosinophils (0.0-0.7) 10^3/uL Absolute Basophils (0.0-0.2) 10^3/uL Sodium (136-145) mmol/L Potassium (3.5-5.1) mmol/L Chloride (98-107) mmol/L Carbon Dioxide (21.0-32.0) mmol/L Anion Gap (3-11) mmol/L BUN (7-18) mg/dL Creatinine (0.55-1.02) mg/dL Est GFR (CKD-EPI 2020) (mL/min/1.73m2) Glucose (74-106) mg/dL Calcium (8.5-10.1) mg/dL Total Bilirubin (0.2-1.0) mg/dL AST (15-37) U/L ALT (14-59) U/L Alkaline Phosphatase (46-116) U/L Total Protein (6.4-8.2) g/dL Albumin (3.4-5.0) g/dL Urine Color (Yellow) Yellow Urine Clarity (Clear) Clear Urine pH (5-8) 7.5 Ur Specific [place] (1.005-1.025) 1.025 Urine Protein (Negative) mg/dL Trace H Urine Ketones (Negative) mg/dL Negative Urine Blood (Negative) Moderate H Urine Nitrite (Negative) Negative Urine Bilirubin (Negative) Negative Urine Urobilinogen (Up TO 0.2) EU/dL 1.0 H Ur Leukocyte Esterase (Negative) Negative Urine RBC (0-2) HPF 10-20 H Urine WBC (0-5) HPF Negative Ur Epithelial Cells (Negative) HPF Few Urine Crystals (Negative) HPF Negative Urine Bacteria (Negative) HPF Negative Urine Casts (Negative) LPF 0-2 Hyaline Urine Mucus (Negative) Trace Ur Culture Indicated? No Urine Glucose (Negative) mg/dL Negative Urine Opiates Screen (Negative) Positive A Urine Methadone Screen (Negative) Positive A Ur Barbiturates Screen (Negative) Negative Ur Tricyclics Screen (Negative) Negative Ur Amphetamines Screen (Negative) Negative U Benzodiazepines Scrn (Negative) Negative Urine Cocaine Screen (Negative) Positive A Ur THC Screen (Negative) Negative Chlamydia DNA Probe Cancelled Chlamydia/GC DNA Source Cancelled N.gonorrhoeae DNA Probe Cancelled Range/Units 04/09/22 04/09/22 12:00 12:00 WBC (4.4-10.8) 10^3/uL 6.68 RBC (3.93-5.22) 10^6/uL 4.07 Hgb (11.2-15.7) g/dL 12.2 Hct (36.0-46.0) % 36.5 MCV (80-95) fL 90 MCH (27.0-33.0) pg 30.0 MCHC (32.0-36.0) % 33.4 RDW (11.7-14.6) % 13.2 Plt Count (130-400) 10^3/uL 282 MPV (8.0-11.0) fL 10.3 Immature Gran % 0.3 Neutrophils % 72.4 Lymphocytes % 18.4 Monocytes % 6.4 Eosinophils % 2.2 Basophils % 0.3 Nucleated RBC % (0.0-0.3) % 0.0 Absolute Neutrophils (1.2-6.7) 10^3/uL 4.83 Absolute Lymphocytes (1.2-3.4) 10^3/uL 1.23 Absolute Monocytes (0.1-0.8) 10^3/uL 0.43 Absolute Eosinophils (0.0-0.7) 10^3/uL 0.15 Absolute Basophils (0.0-0.2) 10^3/uL 0.02 Sodium (136-145) mmol/L 141 Potassium (3.5-5.1) mmol/L 4.2 Chloride (98-107) mmol/L 104 Carbon Dioxide (21.0-32.0) mmol/L 29.2 Anion Gap (3-11) mmol/L 7.8 BUN (7-18) mg/dL 12 Creatinine (0.55-1.02) mg/dL 0.9 Est GFR (CKD-EPI 2020) (mL/min/1.73m2) 85.50 Glucose (74-106) mg/dL 102 Calcium (8.5-10.1) mg/dL 8.9 Total Bilirubin (0.2-1.0) mg/dL 0.3 AST (15-37) U/L 19 ALT (14-59) U/L 19 Alkaline Phosphatase (46-116) U/L 50 Total Protein (6.4-8.2) g/dL 7.0 Albumin (3.4-5.0) g/dL 3.7 Urine Color (Yellow) Urine Clarity (Clear) Urine pH (5-8) Ur Specific [place] (1.005-1.025) Urine Protein (Negative) mg/dL Urine Ketones (Negative) mg/dL Urine Blood (Negative) Urine Nitrite (Negative) Urine Bilirubin (Negative) Urine Urobilinogen (Up TO 0.2) EU/dL Ur Leukocyte Esterase (Negative) Urine RBC (0-2) HPF Urine WBC (0-5) HPF Ur Epithelial Cells (Negative) HPF Urine Crystals (Negative) HPF Urine Bacteria (Negative) HPF Urine Casts (Negative) LPF Urine Mucus (Negative) Ur Culture Indicated? Urine Glucose (Negative) mg/dL Urine Opiates Screen (Negative) Urine Methadone Screen (Negative) Ur Barbiturates Screen (Negative) Ur Tricyclics Screen (Negative) Ur Amphetamines Screen (Negative) U Benzodiazepines Scrn (Negative) Urine Cocaine Screen (Negative) Ur THC Screen (Negative) Chlamydia DNA Probe Chlamydia/GC DNA Source N.gonorrhoeae DNA Probe HPI General Mode of arrival: ambulatory . Date/Time Provider Initiated Documentation: 04/09/22 10:25 . Limitations to Documentation: no limitations . Information obtained by: patient, RN notes reviewed and old records reviewed . HPI Narrative: 36-year-old female presents to the ER with a chief complaint of a possible uterine prolapse which she reports that she is known about for a while. She states that she is recently been using a diva cup and is currently on her menses and has had any increased bleeding which is heavier than normal. She also endorses some dysuria, acid reflux, chills, and feeling sleepier than normal. She reports having to empty the diva cup once every couple hours. She does have a history of IV drug use and is on methadone. She is a smoker, past medical history includes ADD, anxiety, depression, latex allergy. Related Data Home Medications Medication Instructions Recorded Confirmed albuterol sulfate 0.63 mg/3 mL 0.63 mg inhalation PRN PRN 09/22/12 04/09/22 solution for nebulization (AccuNeb) methadone 10 mg/mL oral concentrate 105 mg PO DAILY 12/03/17 04/09/22 albuterol sulfate 90 mcg/actuation 2 puff inhalation Q6H PRN 03/22/19 04/09/22 aerosol inhaler (Ventolin HFA) fluticasone propionate 110 1 puff inhalation BID 03/22/19 04/09/22 mcg/actuation HFA aerosol inhaler (Flovent HFA) gabapentin 600 mg tablet 600 mg PO DAILY 07/08/20 04/09/22 albuterol sulfate 90 mcg/actuation 2 puff inhalation QID PRN 08/16/20 04/09/22 aerosol inhaler shortness of breath or wheezing #8 grams Previous Rx's Medication Instructions Recorded albuterol sulfate 90 mcg/actuation 2 puff inhalation QID PRN 08/16/20 aerosol inhaler shortness of breath or wheezing #8 grams Allergies Allergy/AdvReac Type Severity Reaction Status Date / Time clindamycin Allergy Severe Swelling/Ed Unverified 04/09/22 10:53 toya ibuprofen Allergy Intermediate Swelling/Ed Unverified 04/09/22 10:53 toya indomethacin Allergy Intermediate Swelling/Ed Unverified 04/09/22 10:53 toya latex Allergy Mild Itching Unverified 04/09/22 10:53 Latex, Natural Rubber Allergy Mild Skin Rash Unverified 04/09/22 10:53 atomoxetine [From Strattera] Allergy Unverified 04/09/22 10:53 methylphenidate Allergy Unverified 08/18/20 17:50 [From Concerta] General Stated Complaint: PRESSURIZATION MECHANIC NAVID: 3 Review of Systems All systems reviewed & are unremarkable except as noted in HPI and below Constitutional Constitutional: Reports as per HPI, Reports chills, Reports daytime sleepiness and Reports fever(s) Gastrointestinal Gastrointestinal: Denies abdominal pain Genitourinary Genitourinary: Reports as per HPI, Reports abnormal vaginal bleeding, Reports menorrhagia, Reports dysuria and Reports prolapse symptoms PFSH All Active Problems (Updated 04/09/22 @ 12:04 by Lorene Jack NP) Anxiety (Chronic) Asthma (Chronic) Shortness of breath (Acute) Hypokalemia (Acute) Other prolapse of vaginal manzano without mention of uterine prolapse (Acute) Hx of tubal ligation (Chronic) Hoarseness (Acute) Pain, eye, right (Acute) Paresthesia (Acute) Left leg pain (Acute) Fatigue (Acute) Medical History (Updated 04/09/22 @ 12:04 by Lorene Jack NP) Acne ADD (attention deficit disorder) Anxiety Cocaine abuse Dental abscess Depressive disorder History of drug abuse Latex allergy Low back pain Lumbar radiculopathy Opioid dependence Plantar fasciitis Rectocele Smoker Soft tissue abscess Urge urinary incontinence Surgical History S/P excision of lipoma low back, 2009 at [facility] Family History Son Idiopathic thrombocytopenic purpura (ITP) Social History Smoking/Tobacco Use Status: Current every day Tobacco Type: cigarettes Smoking packs per day: 0.5 Smoking cigarettes per day: 10.0 Smoking risk assessment performed?: Yes Alcohol Intake: never Drug use: Occasionally Substance use type: crack/cocaine, opiates and IV drugs Details: daily methadone every other day uses IV Fentanyl Number of Children: 2 current occupation: Unemployed Current gender identity: female Seatbelt use: always Do you feel safe at home: Yes Do you feel safe in your relationship?: Yes Female Reproductive History Menstrual control method: permanent sterilization History History 3 Para 2 Hx # Term Pregnancies Multiple births Hx # Pregnancies Ectopic pregnancies AB induced Hx Number of Living Children AB spontaneous Exam Narrative Exam Narrative: Constitutional: Alert and oriented x3. Appears stated age. Normal body habitus. She does appear under the influence. Head: Normocephalic, no trauma. Eyes: Pupils PERRL,Pupils sluggish, Red reflex noted, EOM's intact. Eyelids symmetrical without lesions, discharge, or swelling. . Chest: RRR, Normal S1, S2, distal pulses intact. Resp: Lungs clear to auscultation bilaterally, no wheezes, rales, or rhonchi. Abdomen: Soft, non-distended, Normoactive bowel sounds all 4 quads. : See below Musculoskeletal: Normal gait, 5/5 strength to all four extremities. Skin: No suspicious rashes or lesions. Capillary refill less than 2 sec. Neurologic: Cranial nerves II-XII intact. Alert and oriented x 3. Motor: No deficits noted. Sensory: Intact bilaterally all 4 extremities. Reflexes: DTR's intact bilaterally.. Hematologic/Lymphatic: No ecchymosis, no lymphadenopathy. Speculum Exam - Vagina: normal appearance of the vagina, no foreign bodies, no lacerations, no lesions, vaginal bleeding (Mild), no masses and no swelling (Mild Vaginal canal possible prolapse, nothing significant.) Speculum Exam - Cervix: normal appearance of the cervix, closed and no lesions Bimanual Exam- Vagina & Uterus: normal bimanual exam Bimanual Exam- Adnexa, other: normal adnexae OB/External & Speculum: no foreign bodies and vaginal bleeding (Mild) Course Vital Signs Vital signs: Vital Signs Temperature 36.9 C 04/09/22 10:44 Pulse 79 04/09/22 10:44 Respiratory Rate 20 04/09/22 10:44 Blood Pressure 112/60 04/09/22 10:44 Pulse Oximetry 97 04/09/22 10:44 Temperature 36.9 C 04/09/22 10:44 Temperature Source Skin 04/09/22 10:44 Pulse 79 04/09/22 10:44 Respiratory Rate 20 04/09/22 10:44 Respiratory Effort Non-Labored 04/09/22 10:54 Blood Pressure 112/60 04/09/22 10:44 Blood Pressure Position Sitting 04/09/22 10:44 Pulse Oximetry 97 04/09/22 10:44 Oxygen Delivery Method Room Air 04/09/22 10:44 Oxygen Flow Rate 0 04/09/22 10:44 Pain Level 2 04/09/22 10:44 Comment 04/09/22 10:44
[2022-04-09 11:29] LABS: Bilirubin Negative (Negative); Blood Moderate (Negative); Clarity Clear (Clear); Glucose Negative (Negative); Ketones Negative (Negative); Leukocyte Esterase Negative (Negative); Nitrite Negative (Negative); Specific Gravity 1.025 (1.005-1.025); pH 7.5 (5-8)
[2022-04-09 11:40] LABS: Bacteria Negative HPF (Negative); C & S Indicated? No; Casts 0-2 Hyaline LPF (Negative); Crystals Negative HPF (Negative); Epithelial Cells Few HPF (Negative); Mucus Trace (Negative); WBC Negative HPF (0-5)
[2022-04-09 11:48] LABS: *AMPHETAMINES SCREEN URINE Negative (Negative); *BARBITURATES SCREEN URINE Negative (Negative); *BENZODIAZEPINES SCREEN URINE Negative (Negative); Cannabinoids THC Negative (Negative); Cocaine Screen,Urine Positive (Negative); METHADONE URINE SCREEN Positive (Negative); OPIATES URINE SCREEN Positive (Negative)
[2022-04-09 11:53] LABS: Tricyclic Antidepressants Negative (Negative)
[2022-04-09 12:04] LABS: Abs Immature Grans 0.02 10^3/uL (0.0-0.06); Absolute Basophil Count 0.02 10^3/uL (0.0-0.2); Absolute Eosinophil Count 0.15 10^3/uL (0.0-0.7); Absolute Lymphocyte Count 1.23 10^3/uL (1.2-3.4); Absolute Monocyte Count 0.43 10^3/uL (0.1-0.8); Absolute Neutrophil Count 4.83 10^3/uL (1.2-6.7); Basophils % 0.3; Eosinophils % 2.2; HCT 36.5 % (36.0-46.0); HGB 12.2 g/dL (11.2-15.7); Immature Grans % 0.3; Lymphocytes % 18.4; MCHC 33.4 % (32.0-36.0); MCV 90 fL (80-95); MPV 10.3 fL (8.0-11.0); Monocytes % 6.4; Neutrophils % 72.4; Platelet Count 282 10^3/uL (130-400); RBC 4.07 10^6/uL (3.93-5.22); RDW 13.2 % (11.7-14.6); RDW-SD 43.7 fL; WBC 6.68 10^3/uL (4.4-10.8)
[2022-04-09 13:02] LABS: ALT 19 U/L (14-59); AST 19 U/L (15-37); Albumin 3.7 g/dL (3.4-5.0); Alkaline Phosphatase 50 U/L (46-116); Anion Gap 7.8 mmol/L (3-11); BUN 12 mg/dL (7-18); Bilirubin, Total 0.3 mg/dL (0.2-1.0); CO2 29.2 mmol/L (21.0-32.0); CREATININE 0.9 mg/dL (0.55-1.02); Calcium 8.9 mg/dL (8.5-10.1); Chloride 104 mmol/L (98-107); Glucose 102 mg/dL (74-106); Potassium 4.2 mmol/L (3.5-5.1); Sodium 141 mmol/L (136-145)
== END 2022-04-09 13:12 | disposition home or self-care (01) ==
PROVIDERS: Emergency Provider Registered Nurse Emergency; PCP Internal Medicine
DX: N81.10 Cystocele, unspecified (principal); Z79.899 Other long term (current) drug therapy
CPT/HCPCS: 36415; 80053; 80307; 81025; 87491; 87591; 99284; 81003; 81015; 85025; 99283

== ENCOUNTER 2022-06-07 09:17 | Emergency (ER) | payer MEDICARE, MEDICAID, SELFPAY ==
[2022-06-07 09:18] VITALS: BP 95/67; PULSE 83; RESP 16; TEMP 36.5; O2SAT 93
--- NOTE | 2022-06-07 09:35 | W.ED.GENAD ---
Discharge Plan Disposition Patient Disposition: Home Condition: Stable Discharge Details Clinical Impression: Sinusitis Primary Care Provider: Oleg Thibodeaux ED Provider: Lorene Jack Home Meds and New Rx's Prescriptions: New amoxicillin-pot clavulanate 875-125 mg tablet 1 tab PO BID 7 Days Qty: 14 0RF Rx Instructions: Take one tablet twice daily x7 days Continued fluticasone propionate [Flovent HFA] 110 mcg/actuation HFA aerosol inhaler 1 puff IH BID albuterol sulfate [Ventolin HFA] 90 mcg/actuation HFA aerosol inhaler 2 puff IH Q6H PRN albuterol sulfate [AccuNeb] 0.63 MG/3 ML solution for nebulization 0.63 mg Inhalation PRN PRN methadone 10 MG/ML concentrate 105 mg PO DAILY gabapentin 600 mg tablet 600 mg PO DAILY Rx Instructions: to cover until previous RX can be filled on 06/15 albuterol sulfate 90 mcg/actuation HFA aerosol inhaler 2 puff IH QID PRN (Reason: shortness of breath or wheezing) Qty: 8 0RF Discharge Instructions Instructions: Sinusitis (ED) Additional Instructions: Use the albuterol inhaler 1 or 2 puffs every 4-6 hours as needed for wheezing. Take the antibiotic with yogurt or probiotic twice a day x7 days. You are given the first dose here. The rapid strep, COVID, flu are all negative. Please take Tylenol or Ibuprofen with food every 4-6 hours as needed for pain and swelling. Follow up with primary care provider in 3-5 days. Return to ED sooner if any worsening or concerns. Increase oral fluids. Referrals: Oleg Thibodeaux MD [Primary Care Provider] - 5 days Medical Decision Making Presents to the ER with a chief complaint of URI type symptoms x3 weeks, stuffy nose and green runny nose, pressure behind her eyes, sore throat. Rapid strep, rapid COVID and flu ordered. Albuterol inhaler given to patient. Rapid strep is negative. Strep screen sent by staff electronic warfare officer. Patient given Augmentin here in the department and a prescription for 7 days. Instructed on home care and follow-up care. This text was generated using [employer] system, please disregard any oddities of phrase or misspellings. HPI General Mode of arrival: ambulatory. Date/Time Provider Initiated Documentation: 06/07/22 09:18. Limitations to Documentation: no limitations. Information obtained by: patient, RN notes reviewed and old records reviewed. HPI Narrative: Presents to the ER with a chief complaint of URI type symptoms x3 weeks, stuffy nose and green runny nose, pressure behind her eyes, sore throat. She has not taken anything [id number] or Tylenol or ibuprofen. She does endorse chills no documented fever. She is a smoker. She does normally use an albuterol inhaler which she reports that she is out of. She does also endorse fentanyl use which she smokes and she vapes. She is not vaccinated for COVID. Past medical history include anxiety, asthma, ADD, depression. She also takes methadone daily. Related Data Home Medications Medication Instructions Recorded Confirmed albuterol sulfate 0.63 mg/3 mL 0.63 mg inhalation PRN PRN 09/22/12 06/07/22 solution for nebulization (AccuNeb) methadone 10 mg/mL oral concentrate 105 mg PO DAILY 12/03/17 06/07/22 albuterol sulfate 90 mcg/actuation 2 puff inhalation Q6H PRN 03/22/19 06/07/22 aerosol inhaler (Ventolin HFA) fluticasone propionate 110 1 puff inhalation BID 03/22/19 04/09/22 mcg/actuation HFA aerosol inhaler (Flovent HFA) gabapentin 600 mg tablet 600 mg PO DAILY 07/08/20 06/07/22 albuterol sulfate 90 mcg/actuation 2 puff inhalation QID PRN 08/16/20 06/07/22 aerosol inhaler shortness of breath or wheezing #8 grams amoxicillin 875 mg-potassium 1 tab PO BID sinusitis 7 days #14 06/07/22 clavulanate 125 mg tablet tabs Previous Rx's Medication Instructions Recorded albuterol sulfate 90 mcg/actuation 2 puff inhalation QID PRN 08/16/20 aerosol inhaler shortness of breath or wheezing #8 grams amoxicillin 875 mg-potassium 1 tab PO BID sinusitis 7 days #14 06/07/22 clavulanate 125 mg tablet tabs Allergies Allergy/AdvReac Type Severity Reaction Status Date / Time clindamycin Allergy Severe Swelling/Ed Unverified 06/07/22 09:25 toya ibuprofen Allergy Intermediate Swelling/Ed Unverified 06/07/22 09:25 toya indomethacin Allergy Intermediate Swelling/Ed Unverified 06/07/22 09:25 toya latex Allergy Mild Itching Unverified 06/07/22 09:25 Latex, Natural Rubber Allergy Mild Skin Rash Unverified 06/07/22 09:25 atomoxetine [From Strattera] Allergy Unverified 06/07/22 09:25 methylphenidate Allergy Unverified 06/07/22 09:25 [From Concerta] General Stated Complaint: RespSymp NAVID: 4 Review of Systems All systems reviewed & are unremarkable except as noted in HPI and below Constitutional Constitutional: Reports as per HPI, Reports chills, Reports daytime sleepiness and Denies fever(s) ENT Ears, Nose, Mouth, and Throat: Reports as per HPI, Denies ear discharge, Reports facial pain, Denies hoarseness, Reports nasal congestion, Reports nasal discharge, Reports tinnitus (Reports ear crackling and feeling off balance), Reports sinus pain and Reports sore throat PFSH All Active Problems (Updated 06/07/22 @ 10:06 by Lorene Jack NP) Anxiety (Chronic) Asthma (Chronic) Shortness of breath (Acute) Hypokalemia (Acute) Other prolapse of vaginal manzano without mention of uterine prolapse (Acute) Sinusitis (Acute) Hx of tubal ligation (Chronic) Hoarseness (Acute) Pain, eye, right (Acute) Paresthesia (Acute) Left leg pain (Acute) Fatigue (Acute) Medical History (Updated 06/07/22 @ 10:06 by Lorene Jack NP) Acne ADD (attention deficit disorder) Anxiety Cocaine abuse Dental abscess Depressive disorder History of drug abuse Latex allergy Low back pain Lumbar radiculopathy Opioid dependence Plantar fasciitis Rectocele Smoker Soft tissue abscess Urge urinary incontinence Surgical History S/P excision of lipoma low back, 2009 at [facility] Family History Son Idiopathic thrombocytopenic purpura (ITP) Social History Smoking/Tobacco Use Status: Current every day Tobacco Type: cigarettes Smoking packs per day: 0.5 Smoking cigarettes per day: 10.0 Smoking risk assessment performed?: Yes Alcohol Intake: never Drug use: Occasionally Substance use type: crack/cocaine, opiates and IV drugs Details: daily methadone every other day uses IV Fentanyl Number of Children: 2 current occupation: Unemployed Current gender identity: female Seatbelt use: always Do you feel safe at home: Yes Do you feel safe in your relationship?: Yes Female Reproductive History Menstrual control method: permanent sterilization History History 3 Para 2 Hx # Term Pregnancies Multiple births Hx # Pregnancies Ectopic pregnancies AB induced Hx Number of Living Children AB spontaneous Exam Narrative Exam Narrative: Constitutional: Alert and oriented x3. Appears stated age. Normal body habitus. Patient appears sleepy she does endorse fentanyl use. Head: Normocephalic, no trauma. Eyes: Pupils PERRL, Red reflex noted, EOM's intact. Eyelids symmetrical without lesions, discharge, or swelling. ENT: Bilateral TM's nonerythemic, small effusion bilaterally, external ear normal to inspection, no mastoid TTP, swelling, or erythema, Nasal turbinates slightly boggy, green nasal discharge noted. Normal dentition, Posterior pharynx slightly erythemic, tonsils 0 bilaterally, no exudate. Chest: RRR, Normal S1, S2, distal pulses intact. Resp: Lungs clear to auscultation bilaterally, no wheezes, rales, or rhonchi. Musculoskeletal: Normal gait, 5/5 strength to all four extremities. Skin: No suspicious rashes or lesions. Capillary refill less than 2 sec. Neurologic: Cranial nerves II-XII intact. Alert and oriented x 3. Motor: No deficits noted. Hematologic/Lymphatic: No ecchymosis, no lymphadenopathy. Course Vital Signs Vital signs: Vital Signs Temperature 36.5 C 06/07/22 09:18 Pulse 83 06/07/22 09:18 Respiratory Rate 16 06/07/22 09:18 Blood Pressure 95/67 L 06/07/22 09:18 Pulse Oximetry 93 06/07/22 09:18 Temperature 36.5 C 06/07/22 09:18 Temperature Source Temporal Artery Scan 06/07/22 09:18 Pulse 83 06/07/22 09:18 Respiratory Rate 16 06/07/22 09:18 Respiratory Effort Non-Labored 06/07/22 09:24 Respiratory Depth Normal 06/07/22 09:24 Blood Pressure 95/67 L 06/07/22 09:18 Blood Pressure Position Sitting 06/07/22 09:18 Pulse Oximetry 93 06/07/22 09:18 Oxygen Delivery Method Room Air 06/07/22 09:18 Oxygen Flow Rate 0 06/07/22 09:18 Pain Level 1 06/07/22 09:18
[2022-06-07] MEDS: Albuterol HFA 8 GM 60 PUFF INH IH (09:59)
[2022-06-07] MEDS: Inhaler, Assist Device 1 EACH MC (09:59)
[2022-06-07] MEDS: Amoxicillin 875/Clav. 125 TAB PO (10:09)
[2022-06-07] MEDS: Amox. 875/Clav. 125, 2 TABS/BTL 1 TAB PO (10:09)
--- NOTE | 2022-06-08 12:55 | NUR.NOTE ---
Nursing Note: Accessed patient chart to view prescription on discharge. She asked if we could call the prescription in to [facility]. Per Dr. Oakley the prescription was called in.
== END 2022-06-07 10:11 | disposition home or self-care (01) ==
PROVIDERS: Emergency Provider Registered Nurse Emergency; PCP Internal Medicine
DX: J32.9 Chronic sinusitis, unspecified (principal); H93.8X3 Other specified disorders of ear, bilateral
CPT/HCPCS: 94640; 99283; 87081; 99284

== ENCOUNTER 2022-10-11 20:10 | Emergency (ER) | payer MEDICARE, MEDICAID, SELFPAY ==
[2022-10-11 20:17] VITALS: BP 111/71; PULSE 65; RESP 16; TEMP 36; O2SAT 100
--- NOTE | 2022-10-11 20:30 | DI.CT_ITS ---
Exam(s) CT HEAD WO EXAM: CT HEAD WO CLINICAL HISTORY: Visual disturbancesm Headache. TECHNIQUE: Imaging Protocol: Axial computed tomography images with coronal and sagittal reformatted images were created and reviewed COMPARISON: No exams were available for comparison FINDINGS: Ventricles and Extra axial spaces: Normal in size and morphology for the patient's age. Hemorrhage: None. Cerebral parenchyma: Normal. Midline shift: None. Brainstem/Cerebellum: Normal. Calvarium: Normal. Visualized Paranasal sinuses/Mastoids: Clear. Soft Tissues: Unremarkable. IMPRESSION: No acute intracranial process. RADIATION DOSE DELIVERED: 726.79mGy.cm Total DLP DATA REPOSITORY: All CT scans at this facility are submitted to the National Radiology Data Registry (NRDR) Dose Index Registry (DIR) with the [employer] (ACR). RADIATION OPTIMIZATION: All CT scans at this facility use at least one of these dose optimization te chniques: automated exposure control; mA and/or kV adjustment per patient size (includes targeted exa ms where dose is matched to clinical indication); or iterative reconstruction.
--- NOTE | 2022-10-11 20:45 | W.ED.GENAD ---
Discharge Plan Disposition Patient Disposition: Home Condition: Stable Discharge Details Clinical Impression: Headache Primary Care Provider: Oleg Thibodeaux ED Provider: Lorene Jack Home Meds and New Rx's Prescriptions: Continued fluticasone propionate [Flovent HFA] 110 mcg/actuation HFA aerosol inhaler 1 puff IH BID albuterol sulfate [Ventolin HFA] 90 mcg/actuation HFA aerosol inhaler 2 puff IH Q6H PRN albuterol sulfate [AccuNeb] 0.63 MG/3 ML solution for nebulization 0.63 mg Inhalation PRN PRN methadone 10 MG/ML concentrate 105 mg PO DAILY gabapentin 600 mg tablet 600 mg PO DAILY Rx Instructions: to cover until previous RX can be filled on 06/15 albuterol sulfate 90 mcg/actuation HFA aerosol inhaler 2 puff IH QID PRN (Reason: shortness of breath or wheezing) Qty: 8 0RF Discharge Instructions Instructions: Leg Edema (ED), General Headache (ED) Additional Instructions: Head CT is within normal limits. Your potassium and sodium are largely within normal limits. No evidence of infection. Follow up with primary care provider in 3-5 days. Return to ED sooner if any worsening or concerns. Increase oral fluids. Please follow-up with your PCP to discuss further imaging for your leg possibly an ultrasound. We do not have ultrasound in-house until Thursday. Follow up with primary care provider in 3-5 days. Return to ED sooner if any worsening or concerns. Increase oral fluids. Please take Tylenol or Ibuprofen with food every 4-6 hours as needed for pain and swelling. Referrals: Oleg Thibodeaux MD [Primary Care Provider] - 3 days Medical Decision Making 36-year-old female presents to the ER with a chief complaint of visual disturbances and seeing flashes in both her eyes as she describes as lines going across, she also notes twitching of her eyes and sharp shooting headaches last 2 to 3 weeks. She was seen by her eye doctor which states she may be having silent migraines. Patient does endorse smoking fentanyl. She also has multiple other complaints such as left leg swelling, abdominal bloating, uterine prolapse and back numbness. She has no midline spine tenderness with palpation. Denies any fever chills or neck stiffness. She does have a past medical history of ADD, anxiety, cocaine abuse, depression, latex allergy, planter fasciitis and urinary incontinence. Labs ordered including CBC CMP, lipase, urinalysis UDS, CT head. Differential diagnosis includes migraine, headache, drug use, Labs are largely within normal limits as noted below. Urinalysis and UDS are pending at this time. CT head within normal limits. Patient refused IV so has not received any fluids or medications. Patient discharged with home care strict return instructions. This text was generated using [employer] dictation system, please disregard any oddities of phrase or misspellings. Imaging Data Radiologic Study: Imaging: CT Scan Radiologist's impression: COMPARISON: MR BRAIN WO 06/14/2019 2:30 PM FINDINGS: Brain: Normal. No hemorrhage. Unremarkable white matter. No mass effect. Cerebral ventricles: No ventriculomegaly. Paranasal sinuses: Visualized sinuses are unremarkable. No fluid levels. Mastoid air cells: Visualized mastoid air cells are well aerated. Bones/joints: Unremarkable. No acute fracture. Soft tissues: Unremarkable. IMPRESSION: No acute intracranial abnormality. Lab Data Lab results reviewed: Yes I reviewed the patient's lab results. Labs: Laboratory Tests Range/Units 10/11/22 10/11/22 10/11/22 21:19 21:19 22:22 WBC (4.4-10.8) 10^3/uL 4.17 L RBC (3.93-5.22) 10^6/uL 3.76 L Hgb (11.2-15.7) g/dL 11.2 Hct (36.0-46.0) % 34.0 L MCV (80-95) fL 90 MCH (27.0-33.0) pg 29.8 MCHC (32.0-36.0) % 32.9 RDW (11.7-14.6) % 12.7 Plt Count (130-400) 10^3/uL 192 MPV (8.0-11.0) fL 9.8 Immature Gran % 0.2 Neutrophils % 57.4 Lymphocytes % 29.3 Monocytes % 11.0 Eosinophils % 1.9 Basophils % 0.2 Nucleated RBC % (0.0-0.3) % 0.0 Absolute Neutrophils (1.2-6.7) 10^3/uL 2.39 Absolute Lymphocytes (1.2-3.4) 10^3/uL 1.22 Absolute Monocytes (0.1-0.8) 10^3/uL 0.46 Absolute Eosinophils (0.0-0.7) 10^3/uL 0.08 Absolute Basophils (0.0-0.2) 10^3/uL 0.01 Sodium (136-145) mmol/L 140 Potassium (3.5-5.1) mmol/L 4.0 Chloride (98-107) mmol/L 104 Carbon Dioxide (21.0-32.0) mmol/L 32.4 H Anion Gap (3-11) mmol/L 3.6 BUN (7-18) mg/dL 10 Creatinine (0.55-1.02) mg/dL 0.7 Est GFR (CKD-EPI 2020) (mL/min/1.73m2) 115.59 Glucose (74-106) mg/dL 95 Calcium (8.5-10.1) mg/dL 8.3 L Magnesium (1.8-2.4) mg/dL 1.9 Total Bilirubin (0.2-1.0) mg/dL 0.1 L AST (15-37) U/L 14 L ALT (14-59) U/L 25 Alkaline Phosphatase (46-116) U/L 56 Total Protein (6.4-8.2) g/dL 6.3 L Albumin (3.4-5.0) g/dL 3.2 L Lipase (16-77) U/L 13 L Urine Color (Yellow) Urine Clarity (Clear) Urine pH (5-8) Ur Specific [place] (1.005-1.025) Urine Protein (Negative) mg/dL Urine Ketones (Negative) mg/dL Urine Blood (Negative) Urine Nitrite (Negative) Urine Bilirubin (Negative) Urine Urobilinogen (Up to 0.2) mg/dL Ur Leukocyte Esterase (Negative) Urine Glucose (Negative) mg/dL Urine Opiates Screen (Negative) Negative Urine Methadone Screen (Negative) Negative Ur Barbiturates Screen (Negative) Negative Ur Tricyclics Screen (Negative) Negative Ur Amphetamines Screen (Negative) Negative U Benzodiazepines Scrn (Negative) Negative Urine Cocaine Screen (Negative) Positive A Ur THC Screen (Negative) Negative Range/Units 10/11/22 22:22 WBC (4.4-10.8) 10^3/uL RBC (3.93-5.22) 10^6/uL Hgb (11.2-15.7) g/dL Hct (36.0-46.0) % MCV (80-95) fL MCH (27.0-33.0) pg MCHC (32.0-36.0) % RDW (11.7-14.6) % Plt Count (130-400) 10^3/uL MPV (8.0-11.0) fL Immature Gran % Neutrophils % Lymphocytes % Monocytes % Eosinophils % Basophils % Nucleated RBC % (0.0-0.3) % Absolute Neutrophils (1.2-6.7) 10^3/uL Absolute Lymphocytes (1.2-3.4) 10^3/uL Absolute Monocytes (0.1-0.8) 10^3/uL Absolute Eosinophils (0.0-0.7) 10^3/uL Absolute Basophils (0.0-0.2) 10^3/uL Sodium (136-145) mmol/L Potassium (3.5-5.1) mmol/L Chloride (98-107) mmol/L Carbon Dioxide (21.0-32.0) mmol/L Anion Gap (3-11) mmol/L BUN (7-18) mg/dL Creatinine (0.55-1.02) mg/dL Est GFR (CKD-EPI 2020) (mL/min/1.73m2) Glucose (74-106) mg/dL Calcium (8.5-10.1) mg/dL Magnesium (1.8-2.4) mg/dL Total Bilirubin (0.2-1.0) mg/dL AST (15-37) U/L ALT (14-59) U/L Alkaline Phosphatase (46-116) U/L Total Protein (6.4-8.2) g/dL Albumin (3.4-5.0) g/dL Lipase (16-77) U/L Urine Color (Yellow) Yellow Urine Clarity (Clear) Clear Urine pH (5-8) 7.0 Ur Specific [place] (1.005-1.025) 1.020 Urine Protein (Negative) mg/dL Negative Urine Ketones (Negative) mg/dL Negative Urine Blood (Negative) Negative Urine Nitrite (Negative) Negative Urine Bilirubin (Negative) Negative Urine Urobilinogen (Up to 0.2) mg/dL 0.2 Ur Leukocyte Esterase (Negative) Negative Urine Glucose (Negative) mg/dL Negative Urine Opiates Screen (Negative) Urine Methadone Screen (Negative) Ur Barbiturates Screen (Negative) Ur Tricyclics Screen (Negative) Ur Amphetamines Screen (Negative) U Benzodiazepines Scrn (Negative) Urine Cocaine Screen (Negative) Ur THC Screen (Negative) HPI General Mode of arrival: ambulatory. Date/Time Provider Initiated Documentation: 10/11/22 20:11. Limitations to Documentation: no limitations. Information obtained by: patient, RN notes reviewed and old records reviewed. HPI Narrative: 36-year-old female presents to the ER with a chief complaint of visual disturbances and seeing flashes in both her eyes as she describes as lines going across, she also notes twitching of her eyes and sharp shooting headaches last 2 to 3 weeks. She was seen by her eye doctor which states she may be having silent migraines. Patient does endorse smoking fentanyl. She also has multiple other complaints such as left leg swelling, abdominal bloating, uterine prolapse and back numbness. She has no midline spine tenderness with palpation. Denies any fever chills or neck stiffness. She does have a past medical history of ADD, anxiety, cocaine abuse, depression, latex allergy, planter fasciitis and urinary incontinence. Related Data Home Medications Medication Instructions Recorded Confirmed albuterol sulfate 0.63 mg/3 mL 0.63 mg inhalation PRN PRN 09/22/12 10/11/22 solution for nebulization (AccuNeb) methadone 10 mg/mL oral concentrate 105 mg PO DAILY 12/03/17 10/11/22 albuterol sulfate 90 mcg/actuation 2 puff inhalation Q6H PRN 03/22/19 10/11/22 aerosol inhaler (Ventolin HFA) fluticasone propionate 110 1 puff inhalation BID 03/22/19 10/11/22 mcg/actuation HFA aerosol inhaler (Flovent HFA) gabapentin 600 mg tablet 600 mg PO DAILY 07/08/20 10/11/22 albuterol sulfate 90 mcg/actuation 2 puff inhalation QID PRN 08/16/20 10/11/22 aerosol inhaler shortness of breath or wheezing #8 grams Previous Rx's Medication Instructions Recorded albuterol sulfate 90 mcg/actuation 2 puff inhalation QID PRN 08/16/20 aerosol inhaler shortness of breath or wheezing #8 grams Allergies Allergy/AdvReac Type Severity Reaction Status Date / Time clindamycin Allergy Severe Swelling/Ed Unverified 10/11/22 20:23 toya ibuprofen Allergy Intermediate Swelling/Ed Unverified 10/11/22 20:23 toya indomethacin Allergy Intermediate Swelling/Ed Unverified 10/11/22 20:23 toya latex Allergy Mild Itching Unverified 10/11/22 20:23 Latex, Natural Rubber Allergy Mild Skin Rash Unverified 10/11/22 20:23 atomoxetine [From Strattera] Allergy Unverified 10/11/22 20:23 methylphenidate Allergy Unverified 10/11/22 20:23 [From Concerta] General Stated Complaint: GenMedical NAVID: 3 Review of Systems All systems reviewed & are unremarkable except as noted in HPI and below Constitutional Constitutional: Reports headache(s) Eyes Eyes: Reports floaters and Reports spots in vision ENT Ears, Nose, Mouth, and Throat: Reports headache(s) Cardiovascular Cardiovascular: Reports pedal edema and Reports leg edema Gastrointestinal Gastrointestinal: Reports bloating Neurologic Neurologic: Reports headache(s) PFSH All Active Problems (Updated 10/11/22 @ 22:33 by Lorene Jack NP) Anxiety (Chronic) Asthma (Chronic) Shortness of breath (Acute) Hypokalemia (Acute) Other prolapse of vaginal manzano without mention of uterine prolapse (Acute) Headache (Acute) Hx of tubal ligation (Chronic) Hoarseness (Acute) Pain, eye, right (Acute) Paresthesia (Acute) Left leg pain (Acute) Fatigue (Acute) Medical History (Updated 10/11/22 @ 22:33 by Lorene Jack NP) Acne ADD (attention deficit disorder) Anxiety Cocaine abuse Dental abscess Depressive disorder History of drug abuse Latex allergy Low back pain Lumbar radiculopathy Opioid dependence Plantar fasciitis Rectocele Smoker Soft tissue abscess Urge urinary incontinence Surgical History S/P excision of lipoma low back, 2009 at [facility] Family History Son Idiopathic thrombocytopenic purpura (ITP) Social History Smoking/Tobacco Use Status: Current every day Tobacco Type: e-cigarettes Smoking risk assessment performed?: Yes Alcohol Intake: never Drug use: Current Sobriety Substance use type: crack/cocaine, opiates and IV drugs Details: daily methadone every other day uses IV Fentanyl Number of Children: 2 current occupation: Unemployed Current gender identity: female Seatbelt use: always Do you feel safe at home: Yes Do you feel safe in your relationship?: Yes Female Reproductive History Menstrual control method: permanent sterilization History History 3 Para 2 Hx # Term Pregnancies Multiple births Hx # Pregnancies Ectopic pregnancies AB induced Hx Number of Living Children AB spontaneous Exam Narrative Exam Narrative: Constitutional: Alert and oriented x3. Appears stated age. Normal body habitus. Head: Normocephalic, no trauma. Eyes: Pupils PERRL, Red reflex noted, EOM's intact. Eyelids symmetrical without lesions, discharge, or swelling. ENT: Bilateral TM's WNL, External ear normal to inspection, no mastoid TTP, swelling, or erythema, Nasal turbinates WNL, no nasal discharge. Normal dentition, Posterior pharynx WNL, no exudate. Chest: RRR, Normal S1, S2, distal pulses intact. Resp: Lungs clear to auscultation bilaterally, no wheezes, rales, or rhonchi. Abdomen: Soft, non-distended, Normoactive bowel sounds all 4 quads. Musculoskeletal: Normal gait, 5/5 strength to all four extremities. Does have trace 1+ edema noted to the left ankle and foot. Negative Homans' sign no calf tenderness or redness. Skin: No suspicious rashes or lesions. Capillary refill less than 2 sec. Neurologic: Cranial nerves II-XII intact. Alert and oriented x 3. Motor: No deficits noted. Sensory: Intact bilaterally all 4 extremities. Reflexes: DTR's intact bilaterally.. Hematologic/Lymphatic: No ecchymosis, no lymphadenopathy. Course Vital Signs Vital signs: Vital Signs Temperature 36.0 C L 10/11/22 20:17 Pulse 65 10/11/22 20:17 Respiratory Rate 16 10/11/22 20:17 Blood Pressure 111/71 10/11/22 20:17 Pulse Oximetry 100 10/11/22 20:17 Temperature 36.0 C L 10/11/22 20:17 Temperature Source Tympanic 10/11/22 20:17 Pulse 65 10/11/22 20:17 Respiratory Rate 16 10/11/22 20:17 Respiratory Effort Normal 10/11/22 20:17 Blood Pressure 111/71 10/11/22 20:17 Blood Pressure Position Sitting 10/11/22 20:17 Pulse Oximetry 100 10/11/22 20:17 Oxygen Delivery Method Room Air 10/11/22 20:17 Oxygen Flow Rate 0 10/11/22 20:17 Pain Level 1 10/11/22 20:17
[2022-10-11 21:25] LABS: Abs Immature Grans 0.01 10^3/uL (0.0-0.06); Absolute Basophil Count 0.01 10^3/uL (0.0-0.2); Absolute Eosinophil Count 0.08 10^3/uL (0.0-0.7); Absolute Lymphocyte Count 1.22 10^3/uL (1.2-3.4); Absolute Monocyte Count 0.46 10^3/uL (0.1-0.8); Absolute Neutrophil Count 2.39 10^3/uL (1.2-6.7); Basophils % 0.2; Eosinophils % 1.9; HGB 11.2 g/dL (11.2-15.7); Immature Grans % 0.2; Lymphocytes % 29.3; MCH 29.8 pg (27.0-33.0); MCHC 32.9 % (32.0-36.0); MCV 90 fL (80-95); MPV 9.8 fL (8.0-11.0); Neutrophils % 57.4; Platelet Count 192 10^3/uL (130-400); RBC 3.76 10^6/uL (3.93-5.22); RDW 12.7 % (11.7-14.6); RDW-SD 41.9 fL; WBC 4.17 10^3/uL (4.4-10.8)
[2022-10-11 21:51] LABS: ALT 25 U/L (14-59); AST 14 U/L (15-37); Albumin 3.2 g/dL (3.4-5.0); Alkaline Phosphatase 56 U/L (46-116); Anion Gap 3.6 mmol/L (3-11); BUN 10 mg/dL (7-18); Bilirubin, Total 0.1 mg/dL (0.2-1.0); CO2 32.4 mmol/L (21.0-32.0); CREATININE 0.7 mg/dL (0.55-1.02); Calcium 8.3 mg/dL (8.5-10.1); Chloride 104 mmol/L (98-107); Estimated GFR 115.59 (mL/min/1.73m2); Glucose 95 mg/dL (74-106); Lipase 13 U/L (16-77); Magnesium 1.9 mg/dL (1.8-2.4); Sodium 140 mmol/L (136-145); Total Protein 6.3 g/dL (6.4-8.2)
--- NOTE | 2022-10-11 22:20 | DI.VRAD_ITS ---
PROCEDURE INFORMATION: Exam: CT Head Without Contrast Exam date and time: 10/11/2022 9:26 PM Age: 36 years old Clinical indication: Visual disturbance and other: Headache; Patient HX: Visual disturbance headache TECHNIQUE: Imaging protocol: Computed tomography of the head without contrast. COMPARISON: MR BRAIN WO 06/14/2019 2:30 PM FINDINGS: Brain: Normal. No hemorrhage. Unremarkable white matter. No mass effect. Cerebral ventricles: No ventriculomegaly. Paranasal sinuses: Visualized sinuses are unremarkable. No fluid levels. Mastoid air cells: Visualized mastoid air cells are well aerated. Bones/joints: Unremarkable. No acute fracture. Soft tissues: Unremarkable. IMPRESSION: No acute intracranial abnormality. Dictated and Authenticated by: Leo Rosales MD. Ordering:CARISSA Paulson MD
[2022-10-11 22:29] LABS: Bilirubin Negative (Negative); Blood Negative (Negative); Clarity Clear (Clear); Glucose Negative (Negative); Ketones Negative (Negative); Leukocyte Esterase Negative (Negative); Nitrite Negative (Negative); Urobilinogen 0.2 mg/dL (Up to 0.2)
[2022-10-11 22:46] LABS: *AMPHETAMINES SCREEN URINE Negative (Negative); *BARBITURATES SCREEN URINE Negative (Negative); *BENZODIAZEPINES SCREEN URINE Negative (Negative); Cannabinoids THC Negative (Negative); Cocaine Screen,Urine Positive (Negative); METHADONE URINE SCREEN Negative (Negative); OPIATES URINE SCREEN Negative (Negative)
[2022-10-11 22:47] LABS: Tricyclic Antidepressants Negative (Negative)
== END 2022-10-11 22:44 | disposition home or self-care (01) ==
PROVIDERS: Emergency Provider Registered Nurse Emergency; PCP Internal Medicine
DX: R51.9 Headache, unspecified (principal); R22.42 Localized swelling, mass and lump, left lower limb; H53.8 Other visual disturbances; F11.20 Opioid dependence, uncomplicated; N81.4 Uterovaginal prolapse, unspecified; R20.0 Anesthesia of skin
CPT/HCPCS: 80053; 80307; 81025; 83690; 99284; 70450; 81003; 83735; 85025; 99283

== ENCOUNTER 2022-10-14 12:45 | Emergency (ER) | payer MEDICARE, MEDICAID, SELFPAY ==
[2022-10-14 13:04] VITALS: BP 87/55; PULSE 68; RESP 14; TEMP 36.8; O2SAT 96
--- NOTE | 2022-10-14 13:47 | W.ED.GENAD ---
Discharge Plan Disposition Patient Disposition: Home Discharge Details Chief Complaint: GenMedical Clinical Impression: Paresthesia Primary Care Provider: Oleg Thibodeaux ED Provider: Keegan Hale Home Meds and New Rx's Prescriptions: No Action fluticasone propionate [Flovent HFA] 110 mcg/actuation HFA aerosol inhaler 1 puff IH BID albuterol sulfate [Ventolin HFA] 90 mcg/actuation HFA aerosol inhaler 2 puff IH Q6H PRN albuterol sulfate [AccuNeb] 0.63 MG/3 ML solution for nebulization 0.63 mg Inhalation PRN PRN methadone 10 MG/ML concentrate 105 mg PO DAILY gabapentin 600 mg tablet 600 mg PO DAILY Rx Instructions: to cover until previous RX can be filled on 06/15 albuterol sulfate 90 mcg/actuation HFA aerosol inhaler 2 puff IH QID PRN (Reason: shortness of breath or wheezing) Qty: 8 0RF Discharge Instructions Instructions: Paresthesia (ED) Additional Instructions: Please follow-up with your primary care physician and neuro-ophthalmology Medical Decision Making 36-year-old female presents with multiple symptomatology that is been present for weeks to months including swelling paresthesias visual disturbances eye twitching, patient is stable nontoxic resting comfortably neurologically intact. No external signs of trauma. No focal neurodeficits. Patient is a history of follow-up with [facility] neuro-ophthalmology has recently been seen by an starch mangle tender with a normal examination. Low suspicion for CVA TIA encephalitis encephalopathy retinal detachment or hemorrhage. Consider atypical migraine versus polyneuropathy versus anxiety. Will have patient follow-up with her primary care physician and neuro-starch mangle tender given recent negative blood work and imaging. HPI General Date/Time Provider Initiated Documentation: 10/14/22 13:12. HPI Narrative: 36-year-old female history of recurrent headaches, substance abuse, presents with multiple symptomatology over the last several weeks to months including swelling of her face arms and legs, tingling sensation in her hands, twitching sensation in her eye, flashing lights in her visual lucio, has been a patient of neuro-ophthalmology at [facility] in the past however was unable to get an appointment as she lapsed with follow-up. Denies any recent injuries. Denies fevers chills nausea vomiting shortness of breath or chest pain. Related Data Home Medications Medication Instructions Recorded Confirmed albuterol sulfate 0.63 mg/3 mL 0.63 mg inhalation PRN PRN 09/22/12 10/14/22 solution for nebulization (AccuNeb) methadone 10 mg/mL oral concentrate 105 mg PO DAILY 12/03/17 10/14/22 albuterol sulfate 90 mcg/actuation 2 puff inhalation Q6H PRN 03/22/19 10/14/22 aerosol inhaler (Ventolin HFA) fluticasone propionate 110 1 puff inhalation BID 03/22/19 10/14/22 mcg/actuation HFA aerosol inhaler (Flovent HFA) gabapentin 600 mg tablet 600 mg PO DAILY 07/08/20 10/14/22 albuterol sulfate 90 mcg/actuation 2 puff inhalation QID PRN 08/16/20 10/14/22 aerosol inhaler shortness of breath or wheezing #8 grams Previous Rx's Medication Instructions Recorded albuterol sulfate 90 mcg/actuation 2 puff inhalation QID PRN 08/16/20 aerosol inhaler shortness of breath or wheezing #8 grams Allergies Allergy/AdvReac Type Severity Reaction Status Date / Time clindamycin Allergy Severe Swelling/Ed Unverified 10/14/22 13:08 toya ibuprofen Allergy Intermediate Swelling/Ed Unverified 10/14/22 13:08 toya indomethacin Allergy Intermediate Swelling/Ed Unverified 10/14/22 13:08 toya latex Allergy Mild Itching Unverified 10/14/22 13:08 Latex, Natural Rubber Allergy Mild Skin Rash Unverified 10/14/22 13:08 atomoxetine [From Strattera] Allergy Unverified 10/14/22 13:08 methylphenidate Allergy Unverified 10/14/22 13:08 [From Concerta] General Stated Complaint: GenMedical NAVID: 3 Review of Systems Narrative: Review of Systems Constitutional: negative Eyes: negative ENT: negative Cardiovascular: negative Respiratory: negative Gastrointestinal: negative : negative Musculoskeletal: negative Skin: negative Neurologic: Paresthesia Psych: negative PFSH All Active Problems (Updated 10/14/22 @ 13:52 by Keegan Hale MD) Anxiety (Chronic) Asthma (Chronic) Shortness of breath (Acute) Hypokalemia (Acute) Other prolapse of vaginal manzano without mention of uterine prolapse (Acute) Headache (Acute) Paresthesia (Acute) Hx of tubal ligation (Chronic) Hoarseness (Acute) Pain, eye, right (Acute) Paresthesia (Acute) Left leg pain (Acute) Fatigue (Acute) Medical History (Updated 10/14/22 @ 13:52 by Keegan Hale MD) Acne ADD (attention deficit disorder) Anxiety Cocaine abuse Dental abscess Depressive disorder History of drug abuse Latex allergy Low back pain Lumbar radiculopathy Opioid dependence Plantar fasciitis Rectocele Smoker Soft tissue abscess Urge urinary incontinence Surgical History S/P excision of lipoma low back, 2010 at [facility] Family History Son Idiopathic thrombocytopenic purpura (ITP) Social History Smoking/Tobacco Use Status: Current every day Tobacco Type: e-cigarettes Smoking risk assessment performed?: Yes Alcohol Intake: never Drug use: Current Sobriety Substance use type: crack/cocaine, opiates and IV drugs Details: daily methadone every other day uses IV Fentanyl Number of Children: 2 current occupation: Unemployed Current gender identity: female Seatbelt use: always Do you feel safe at home: Yes Do you feel safe in your relationship?: Yes Female Reproductive History Menstrual control method: permanent sterilization History History 3 Para 2 Hx # Term Pregnancies Multiple births Hx # Pregnancies Ectopic pregnancies AB induced Hx Number of Living Children AB spontaneous Exam Narrative Exam Narrative: Physical Examination General: alert, awake, cooperative, resting comfortably, no acute distress HEENT: normocephalic, atraumatic; PERRL, EOM intact, conjunctiva normal; no nasal discharge; moist mucous membranes, oral and pharyngeal mucosa normal, tolerating secretions Neck: supple, trachea midline; full ROM Chest: normal to inspection Neuro: AAOx3, normal speech, moving all extremities; cranial nerves intact, no focal motor deficits, no ataxia Psych: Appropriate mood and affect Course Vital Signs Vital signs: Vital Signs Temperature 36.8 C 10/14/22 13:04 Pulse 68 10/14/22 13:04 Respiratory Rate 14 10/14/22 13:04 Blood Pressure 87/55 L 10/14/22 13:04 Pulse Oximetry 96 10/14/22 13:04 Temperature 36.8 C 10/14/22 13:04 Temperature Source Temporal Artery Scan 10/14/22 13:04 Pulse 68 10/14/22 13:04 Respiratory Rate 14 10/14/22 13:04 Respiratory Effort Normal 10/14/22 13:07 Blood Pressure 87/55 L 10/14/22 13:04 Blood Pressure Position Sitting 10/14/22 13:04 Pulse Oximetry 96 10/14/22 13:04 Oxygen Delivery Method Room Air 10/14/22 13:04 Oxygen Flow Rate 0 10/14/22 13:04 Pain Level 0 10/14/22 13:04
--- NOTE | 2022-10-14 18:10 | NUR.NOTE ---
Nursing Note: Referral given to Care Management for recurring headache in 1 week.
--- NOTE | 2022-10-15 14:02 | CMACTNOTE_ITS ---
Date of service: 10/15/22 Time of Service: 14:02 Care Management Activity Note Activity Note Text Activity Note Text: Osiris is seen in the ED for paresthesia. At the request of ED provider, CM coordinates a referral to [facility] Neuro-Ophthalmology to assist Osiris in obtaining an appointment for further evaluation and treatment.
== END 2022-10-14 16:58 | disposition home or self-care (01) ==
PROVIDERS: Emergency Provider Emergency Medicine; PCP Internal Medicine
DX: R20.2 Paresthesia of skin (principal)
CPT/HCPCS: 99282; 99283

== ENCOUNTER 2022-10-15 13:25 | Outpatient (REF) | payer MEDICARE, MEDICAID, SELFPAY ==
[2022-10-15 21:45] LABS: ESR 3 mm/hr (0-20)
[2022-10-17 10:24] LABS: HIV-1/2 Ag & Ab Screen Negative (Negative)
[2022-10-17 10:44] LABS: Lyme Ab w Rflx to Lyme Confirm Negative (Negative)
[2022-10-19 21:15] LABS: Anaplasma phagocytophilum Negative (Negative); B. miyamotoi PCR Negative (Negative); Babesia divergens/MO-1 Negative (Negative); Babesia duncani Negative (Negative); Babesia microti Negative (Negative); Ehrlichia chaffeensis Negative (Negative); Ehrlichia ewingii/canis Negative (Negative); Ehrlichia muris eauclairensis Negative (Negative)
== END 2022-10-15 13:26 | disposition home or self-care (01) ==
LOC: NCHCN 13:25
PROVIDERS: PCP Family Medicine; Visit Provider Family Medicine
DX: H57.11 Ocular pain, right eye (principal); F31.89 Other bipolar disorder; Z86.59 Personal history of other mental and behavioral disorders; F19.11 Other psychoactive substance abuse, in remission; Z11.4 Encounter for screening for human immunodeficiency virus [HIV]; Z11.8 Encounter for screening for other infectious and parasitic diseases
CPT/HCPCS: 85652; 87389; 87798; 86618

== ENCOUNTER 2022-12-05 08:48 | Emergency (ER) | payer MEDICARE, MEDICAID, SELFPAY ==
[2022-12-05 08:57] VITALS: BP 89/65; PULSE 81; RESP 16; TEMP 37; O2SAT 97
--- NOTE | 2022-12-05 09:17 | ED.GENADUL_ITS ---
Discharge Plan Disposition Patient Disposition: Home Discharge Details Clinical Impression: UTI (urinary tract infection) Primary Care Provider: Madhu Randle ED Provider: Ros Tyler Home Meds and New Rx's Prescriptions: New nitrofurantoin macrocrystal 100 mg capsule 100 mg PO BID 5 Days Qty: 10 0RF Rx Instructions: must administer with a meal/food No Action fluticasone propionate [Flovent HFA] 110 mcg/actuation HFA aerosol inhaler 1 puff IH BID albuterol sulfate [Ventolin HFA] 90 mcg/actuation HFA aerosol inhaler 2 puff IH Q6H PRN albuterol sulfate [AccuNeb] 0.63 MG/3 ML solution for nebulization 0.63 mg Inhalation PRN PRN methadone 10 MG/ML concentrate 90 mg PO DAILY gabapentin 600 mg tablet 600 mg PO DAILY Rx Instructions: to cover until previous RX can be filled on 06/15 albuterol sulfate 90 mcg/actuation HFA aerosol inhaler 2 puff IH QID PRN (Reason: shortness of breath or wheezing) Qty: 8 0RF Discharge Instructions Instructions: Urinary Tract Infection in Women (ED) Additional Instructions: If your symptoms worsen or do not improve within the next 48 hours, please return to the emergency department or see your primary care doctor. Referrals: Madhu Randle MD [Primary Care Provider] - Medical Decision Making 37yo F with hx of substance use disorder presenting with dysuria, suprapubic pain, and hematuria x 2 days. Otherwise in her usual state of health with no fevers or systemic symptoms. BP borderline low on arrival (SBP 89) with adequate MAP; patient reports her BP is usually low but not quite that low. Does report fentanyl usage earlier in the day which may be contributing. Not septic/SIRS negative. Mild suprapubic tenderness on exam, no CVA tenderness to suggest pyleonephritis. Will give 1L IVFB. CBC & BMP ordered and reviewed; normal WBC and normal Cr. UA ordered and reviewed; marked hematuria, no WBC (though likely limited 2/t amount of RBCs), also unexpectedly positive protine and glucose despite normal serum glucose. Urine negative. UA repeated; second result with +RBC, +WBC, consistent with clinical presentation/UTI, and glucose negative. Suspect initial sample contaminated. Pelvic ultrasound independently reviewed; agree with radiology read, incidental gallstone, no ovarian pathology including cysts or torsion. On reassessment patient remains well appearing, repeat vital signs reassuring, ambulates without dizziness. Discharged home; discharge instructions and return precuations were reviewed with patietn who verbalized understanding. All questions were answered and she is in full agreement with the plan. Imaging Data Radiologic Study: Imaging: Ultrasound Radiologist's impression: IMPRESSION: 1. Single gallstone measuring 1.7 cm. No gallbladder wall thickening. 2. Normal-appearing uterus with endometrial stripe within normal limits. 3. Unremarkable bilateral ovaries. Lab Data Lab results reviewed: Yes I reviewed the patient's lab results. Lab results narrative: 12/05/22 09:00 Urine - Clean Catch Urine Culture - Pending Laboratory Tests Range/Units 12/05/22 12/05/22 12/05/22 09:00 09:58 09:58 WBC (4.4-10.8) 10^3/uL 5.54 RBC (3.93-5.22) 10^6/uL 4.30 Hgb (11.2-15.7) g/dL 13.0 Hct (36.0-46.0) % 38.9 MCV (80-95) fL 91 MCH (27.0-33.0) pg 30.2 MCHC (32.0-36.0) % 33.4 RDW (11.7-14.6) % 13.1 Plt Count (130-400) 10^3/uL 217 MPV (8.0-11.0) fL 9.6 Immature Gran % 0.2 Neutrophils % 68.5 Lymphocytes % 21.3 Monocytes % 7.9 Eosinophils % 1.4 Basophils % 0.7 Nucleated RBC % (0.0-0.3) % 0.0 Absolute Neutrophils (1.2-6.7) 10^3/uL 3.79 Absolute Lymphocytes (1.2-3.4) 10^3/uL 1.18 L Absolute Monocytes (0.1-0.8) 10^3/uL 0.44 Absolute Eosinophils (0.0-0.7) 10^3/uL 0.08 Absolute Basophils (0.0-0.2) 10^3/uL 0.04 Sodium (136-145) mmol/L 142 Potassium (3.5-5.1) mmol/L 4.4 Chloride (98-107) mmol/L 105 Carbon Dioxide (21.0-32.0) mmol/L 30.2 Anion Gap (3-11) mmol/L 6.8 BUN (7-18) mg/dL 15 Creatinine (0.55-1.02) mg/dL 0.7 Est GFR (CKD-EPI 2020) (mL/min/1.73m2) 114.88 Glucose (74-106) mg/dL 82 Calcium (8.5-10.1) mg/dL 9.0 Urine Color (Yellow) Dark Yellow Urine Clarity (Clear) Cloudy Urine pH (5-8) 5.5 Ur Specific Linden (1.005-1.025) >= 1.030 H Urine Protein (Negative) mg/dL >=300 H Urine Ketones (Negative) mg/dL Negative Urine Blood (Negative) Large H Urine Nitrite (Negative) Negative Urine Bilirubin (Negative) Small H Urine Urobilinogen (Up to 0.2) mg/dL 0.2 Ur Leukocyte Esterase (Negative) Small H Urine RBC (0-2) HPF >50 H Urine WBC Not Applicable Ur Epithelial Cells Not Applicable Urine Crystals Not Applicable Urine Bacteria Not Applicable Urine Mucus Not Applicable Ur Culture Indicated? C&S Done As Ordered Urine Glucose (Negative) mg/dL 100 H Range/Units 12/05/22 10:40 WBC (4.4-10.8) 10^3/uL RBC (3.93-5.22) 10^6/uL Hgb (11.2-15.7) g/dL Hct (36.0-46.0) % MCV (80-95) fL MCH (27.0-33.0) pg MCHC (32.0-36.0) % RDW (11.7-14.6) % Plt Count (130-400) 10^3/uL MPV (8.0-11.0) fL Immature Gran % Neutrophils % Lymphocytes % Monocytes % Eosinophils % Basophils % Nucleated RBC % (0.0-0.3) % Absolute Neutrophils (1.2-6.7) 10^3/uL Absolute Lymphocytes (1.2-3.4) 10^3/uL Absolute Monocytes (0.1-0.8) 10^3/uL Absolute Eosinophils (0.0-0.7) 10^3/uL Absolute Basophils (0.0-0.2) 10^3/uL Sodium (136-145) mmol/L Potassium (3.5-5.1) mmol/L Chloride (98-107) mmol/L Carbon Dioxide (21.0-32.0) mmol/L Anion Gap (3-11) mmol/L BUN (7-18) mg/dL Creatinine (0.55-1.02) mg/dL Est GFR (CKD-EPI 2020) (mL/min/1.73m2) Glucose (74-106) mg/dL Calcium (8.5-10.1) mg/dL Urine Color (Yellow) Yellow Urine Clarity (Clear) Cloudy Urine pH (5-8) 6.5 Ur Specific Linden (1.005-1.025) >= 1.030 H Urine Protein (Negative) mg/dL 100 H Urine Ketones (Negative) mg/dL Negative Urine Blood (Negative) Large H Urine Nitrite (Negative) Negative Urine Bilirubin (Negative) Small H Urine Urobilinogen (Up to 0.2) mg/dL 0.2 Ur Leukocyte Esterase (Negative) Moderate H Urine RBC (0-2) HPF >50 H Urine WBC >50 H Ur Epithelial Cells Rare Urine Crystals Negative Urine Bacteria Negative Urine Mucus Trace Ur Culture Indicated? No Urine Glucose (Negative) mg/dL Negative HPI General Mode of arrival: ambulatory . Date/Time Provider Initiated Documentation: 12/05/22 09:06 . Limitations to Documentation: no limitations . Information obtained by: patient . HPI Narrative: 37yo F with substance use disorder presenting with three days of urinary symptoms. Dysuria, frequency, suprapubic discomfort, and now hematuria. Has has similar symptoms in the past (most recently years ago) with UTI. No prior history of kidney disease, diabetes, kidney infections. S/p BL tubal ligation, not currently sexually active. States her blood pressure is usually low, did use fentanyl earlier this morning. She is otherwise in her usual state of health with no fevers, chills, rash, nasuea, vomiting, upper abdominal pain, back pain, flank pain, lightheadedness, syncope, chest pain, palpaitions, or shortness of breath. Related Data Home Medications Medication Instructions Recorded Confirmed albuterol sulfate 0.63 mg/3 mL 0.63 mg inhalation PRN PRN 09/22/12 12/05/22 solution for nebulization (AccuNeb) methadone 10 mg/mL oral concentrate 90 mg PO DAILY 12/03/17 12/05/22 albuterol sulfate 90 mcg/actuation 2 puff inhalation Q6H PRN 03/22/19 12/05/22 aerosol inhaler (Ventolin HFA) fluticasone propionate 110 1 puff inhalation BID 03/22/19 12/05/22 mcg/actuation HFA aerosol inhaler (Flovent HFA) gabapentin 600 mg tablet 600 mg PO DAILY 07/08/20 12/05/22 albuterol sulfate 90 mcg/actuation 2 puff inhalation QID PRN 08/16/20 12/05/22 aerosol inhaler shortness of breath or wheezing #8 grams nitrofurantoin macrocrystal 100 mg 100 mg PO BID 5 days #10 caps 12/05/22 capsule Previous Rx's Medication Instructions Recorded albuterol sulfate 90 mcg/actuation 2 puff inhalation QID PRN 08/16/20 aerosol inhaler shortness of breath or wheezing #8 grams nitrofurantoin macrocrystal 100 mg 100 mg PO BID 5 days #10 caps 12/05/22 capsule Allergies Allergy/AdvReac Type Severity Reaction Status Date / Time clindamycin Allergy Severe Swelling/Ed Unverified 12/05/22 09:02 toya ibuprofen Allergy Intermediate Swelling/Ed Unverified 12/05/22 09:02 toya indomethacin Allergy Intermediate Swelling/Ed Unverified 12/05/22 09:02 toya latex Allergy Mild Itching Unverified 12/05/22 09:02 Latex, Natural Rubber Allergy Mild Skin Rash Unverified 12/05/22 09:02 atomoxetine [From Strattera] Allergy Unverified 12/05/22 09:02 methylphenidate Allergy Unverified 12/05/22 09:02 [From Concerta] General Stated Complaint: Urinary NAVID: 3 PFSH All Active Problems (Updated 12/05/22 @ 11:52 by Ros Tyler MD) Anxiety (Chronic) Asthma (Chronic) Shortness of breath (Acute) Hypokalemia (Acute) Other prolapse of vaginal manzano without mention of uterine prolapse (Acute) UTI (urinary tract infection) (Acute) Hx of tubal ligation (Chronic) Hoarseness (Acute) Pain, eye, right (Acute) Paresthesia (Acute) Left leg pain (Acute) Fatigue (Acute) Medical History (Updated 12/05/22 @ 11:52 by Ros Tyler MD) Acne ADD (attention deficit disorder) Anxiety Cocaine abuse Dental abscess Depressive disorder History of drug abuse Latex allergy Low back pain Lumbar radiculopathy Opioid dependence Plantar fasciitis Rectocele Smoker Soft tissue abscess Urge urinary incontinence Surgical History S/P excision of lipoma low back, 2010 at [facility] Family History Son Idiopathic thrombocytopenic purpura (ITP) Social History Smoking/Tobacco Use Status: Current every day Tobacco Type: e-cigarettes Smoking risk assessment performed?: Yes Alcohol Intake: never Drug use: Current Sobriety Substance use type: crack/cocaine, opiates and IV drugs Details: daily methadone every other day uses IV Fentanyl Housing: apartment Number of Children: 2 current occupation: Unemployed Current gender identity: female Seatbelt use: always Do you feel safe at home: Yes Do you feel safe in your relationship?: Yes Female Reproductive History Menstrual control method: permanent sterilization History History 3 Para 2 Hx # Term Pregnancies Multiple births Hx # Pregnancies Ectopic pregnancies AB induced Hx Number of Living Children AB spontaneous Exam Narrative Exam Narrative: Gen: Alert, in no acute distress Head: Atraumatic, normocephalic. Resp: No respiratory distress. Lungs CTAB Cardio: Regular rate and rhythm, no murmur appreciated Abd: Soft, nondistended, mild suprapubic tenderness with no rebound or guarding : No CVA tenderness Skin: Warm and well perfused. No rashes or lesions on visible skin Ext: Atraumatic, no peripheral edema. Neuro: Alert, moves all extremities freely against gravity Course Vital Signs Vital signs: Vital Signs Temperature 37.0 C 12/05/22 08:57 Pulse 81 12/05/22 08:57 Respiratory Rate 16 12/05/22 08:57 Blood Pressure 89/65 L 12/05/22 08:57 Pulse Oximetry 97 12/05/22 08:57 Temperature 37.0 C 12/05/22 08:57 Temperature Source Skin 12/05/22 08:57 Pulse 81 07/07/23 08:57 Respiratory Rate 16 12/05/22 08:57 Blood Pressure 89/65 L 12/05/22 08:57 Blood Pressure Position Sitting 12/05/22 08:57 Pulse Oximetry 97 12/05/22 08:57 Oxygen Delivery Method Room Air 12/05/22 08:57 Oxygen Flow Rate 0 12/05/22 08:57 Pain Level 4 12/05/22 08:57
[2022-12-05 09:37] LABS: Bilirubin Small (Negative); Blood Large (Negative); Clarity Cloudy (Clear); Glucose 100 mg/dL (Negative); Ketones Negative (Negative); Leukocyte Esterase Small (Negative); Nitrite Negative (Negative); Specific Gravity >= 1.030 (1.005-1.025); Urobilinogen 0.2 mg/dL (Up to 0.2); pH 5.5 (5-8)
[2022-12-05 09:53] LABS: C & S Indicated? C&S Done As Ordered
[2022-12-05 09:57] LABS: RBC >50 HPF (0-2)
[2022-12-05] MEDS: Normal Saline 1,000 ML 1000 ML IV (09:59)
[2022-12-05 10:04] LABS: Abs Immature Grans 0.01 10^3/uL (0.0-0.06); Absolute Basophil Count 0.04 10^3/uL (0.0-0.2); Absolute Eosinophil Count 0.08 10^3/uL (0.0-0.7); Absolute Lymphocyte Count 1.18 10^3/uL (1.2-3.4); Absolute Monocyte Count 0.44 10^3/uL (0.1-0.8); Absolute Neutrophil Count 3.79 10^3/uL (1.2-6.7); Basophils % 0.7; Eosinophils % 1.4; HCT 38.9 % (36.0-46.0); Immature Grans % 0.2; Lymphocytes % 21.3; MCH 30.2 pg (27.0-33.0); MCHC 33.4 % (32.0-36.0); MCV 91 fL (80-95); MPV 9.6 fL (8.0-11.0); Monocytes % 7.9; Neutrophils % 68.5; Platelet Count 217 10^3/uL (130-400); RDW 13.1 % (11.7-14.6); RDW-SD 43.2 fL; WBC 5.54 10^3/uL (4.4-10.8)
[2022-12-05 10:16] LABS: Anion Gap 6.8 mmol/L (3-11); BUN 15 mg/dL (7-18); CO2 30.2 mmol/L (21.0-32.0); CREATININE 0.7 mg/dL (0.55-1.02); Chloride 105 mmol/L (98-107); Estimated GFR 114.88 (mL/min/1.73m2); Glucose 82 mg/dL (74-106); Potassium 4.4 mmol/L (3.5-5.1); Sodium 142 mmol/L (136-145)
--- NOTE | 2022-12-05 10:30 | DI.US_ITS ---
Exam(s) US ABD PELV TRANSVAG NON-OB EXAM: US ABD PELV TRANSVAG NON-OB CLINICAL HISTORY: suprapubic and lower abdominal pain TECHNIQUE: Ultrasound of the abdomen, pelvis. Both abdominal and transvaginal was performed using standard protocol. COMPARISON: US US PELVIS TRANSVAGINAL from 11/21/2019 FINDINGS: LIVER: Normal. GALLBLADDER: Single gallstone measuring 1.7 cm.. No evidence of wall thickening. No pericholecystic fluid identified. KIDNEYS: Kidneys are symmetric in size. No evidence of renal calculi. No evidence of hydronephrosis. No renal mass or cyst identified. BILIARY SYSTEM: Common bile duct measures < 7 mm. No intrahepatic biliary ductal dilation. JENSEN'S SIGN: Negative. PANCREAS: Partially obscured by bowel gas. SPLEEN: Mildly enlarged. 13.4 cm ABDOMINAL AORTA AND IVC: Visualized portions normal caliber. ASCITES: None seen. UTERUS: Position: Anteverted. Size: 7.8 x 3.5 x 4.2 cm Endometrium: 0.3 cm. Normal for patient's menstrual status. Myometrium: Unremarkable. Cervix: Unremarkable. OVARIES: Right: 2.2 x 1.2 x 1.7 cm Cyst or mass: None. Left: 2.4 x 2.1 x 2.1 cm Cyst or mass: None. DOPPLER: Color: Symmetric and uniform flow to both ovaries. No hyperemia. Duplex: Normal ovarian arterial waveforms visualized. CUL-DE-SAC: Free fluid: None. IMPRESSION: 1. Single gallstone measuring 1.7 cm. No gallbladder wall thickening. 2. Normal-appearing uterus with endometrial stripe within normal limits. 3. Unremarkable bilateral ovaries. DATA REPOSITORY:
[2022-12-05 10:54] LABS: Bilirubin Small (Negative); Blood Large (Negative); Clarity Cloudy (Clear); Glucose Negative (Negative); Ketones Negative (Negative); Leukocyte Esterase Moderate (Negative); Nitrite Negative (Negative); Specific Gravity >= 1.030 (1.005-1.025); Urobilinogen 0.2 mg/dL (Up to 0.2); pH 6.5 (5-8)
[2022-12-05 11:14] LABS: Bacteria Negative HPF (Negative); Crystals Negative HPF (Negative); Epithelial Cells Rare HPF (Negative); Mucus Trace (Negative); RBC >50 HPF (0-2); WBC >50 HPF (0-5)
[2022-12-05 11:15] LABS: C & S Indicated? No
[2022-12-05] MEDS: Acetaminophen 500 MG TAB 1000 MG PO (11:43)
[2022-12-05 12:33] VITALS: BP 95/58; PULSE 65; TEMP 37.5; O2SAT 98
--- NOTE | 2022-12-06 18:57 | NUR.NOTE ---
Nursing Note:Patient had a question about the prescription she was suppose to start today
--- NOTE | 2022-12-07 08:38 | NUR.NOTE ---
Nursing Note: Accessed pt chart to determine the antibiotic given to pt on discharge.
== END 2022-12-05 13:10 | disposition home or self-care (01) ==
PROVIDERS: Emergency Provider Student in an Organized Health Care Education/Training Program; PCP Family Medicine
DX: N39.0 Urinary tract infection, site not specified (principal); R31.9 Hematuria, unspecified; R30.0 Dysuria
CPT/HCPCS: 80048; 81025; 96360; 99284; 76700; 76830; 76856; 81003; 81015; 85025; 87086

== ENCOUNTER 2023-07-02 15:46 | Outpatient (REF) | payer MEDICARE, MEDICAID, SELFPAY ==
--- NOTE | 2023-07-02 13:30 | PAPFT_PTH ---
PATIENT: Osiris Calle LOC: [facility] U#:[id number] AGE/SX: 37/F ROOM: RE07/02/[address]: Amada Sumner DO : 1985 BED: DIS: 07/02/2023 SPEC #: [id number] RECD: 07/02/23 18:07 STATUS: JUAN MIGUEL REReinaldo #: [id number] RIKY: 07/02/23 13:[address]: Amada Sumner DEPT: [facility] Cytology RECD BY: Estefania Sinha ENTERED: 07/02/23 18:08 SP TYPE: PAPFT OTHR DR: Madhu Randle Tissues: 1 - CX/ENDOCX FOR PAP SMEARS Procedures: PAP THIN PREP/UVM Screening HPV DNA PROBE Comments: [id number] (CHLAMYDIA/GC)
[2023-07-03 14:59] LABS: Chlamydia Result Negative (Negative); GC Result Negative (Negative)
== END 2023-07-02 15:47 | disposition home or self-care (01) ==
LOC: LBN 15:46
PROVIDERS: PCP Family Medicine; Visit Provider Obstetrics & Gynecology
DX: Z12.4 Encounter for screening for malignant neoplasm of cervix (principal); Z11.51 Encounter for screening for human papillomavirus (HPV)
CPT/HCPCS: 87491; 87591; 88142; 87624

== ENCOUNTER 2023-09-06 11:55 | Emergency (ER) | payer MEDICARE, MEDICAID, SELFPAY ==
[2023-09-06 12:11] VITALS: BP 111/74; PULSE 81; RESP 16; TEMP 37.1; O2SAT 99
[2023-09-06 12:24] VITALS: BP 111/74; PULSE 81; RESP 16; TEMP 37.1; O2SAT 99
--- NOTE | 2023-09-06 12:37 | ED.GENADUL_ITS ---
Discharge Plan Disposition Patient Disposition: Home Condition: Good Discharge Details Clinical Impression: Paresthesia, Infected tooth Primary Care Provider: Madhu Randle ED Provider: Michele Oakley Home Meds and New Rx's Prescriptions: New gabapentin 100 mg capsule 100 mg PO TID Qty: 30 0RF amoxicillin-pot clavulanate 875-125 mg tablet 1 tab PO BID 10 Days Qty: 20 0RF No Action methadone 10 MG/ML concentrate 90 mg PO DAILY Discharge Instructions Instructions: Paresthesia (ED) Additional Instructions: You were seen in the emergency department for static like electricity all over your body among other symptoms. We performed labs that were unremarkable. The exact cause of your symptoms is not known. Take the prescribed gabapentin to see if this helps with your paresthesias. Follow-up with your primary care doctor to consider additional testing. He may also have a left upper canine infection of your tooth and we are putting you on some antibiotics and you should follow-up with a dentist. Return to the emergency department for worsening symptoms or if you have any other concerns. Referrals: Madhu Randle MD [Primary Care Provider] - 1 week HPI General Mode of arrival: ambulatory . Date/Time Provider Initiated Documentation: 09/06/23 12:17 . Limitations to Documentation: no limitations . Information obtained by: patient . HPI Narrative: This is a 37-year-old female history of opioid use disorder on methadone still actively smoking fentanyl, cocaine abuse and still actively smoking cocaine who is now presenting with paresthesias. She is reporting static electricity all over her body for the last few months. She gets a weird taste and smell occasionally. She feels like her skin is very dry and that her hair is very brittle. Still eating and drinking. Still going to the bathroom normal. No new rashes otherwise. No chest pain or shortness of breath. Says she last smoked some fentanyl this morning and smokes some crack yesterday. She had called her primary care doctor who referred her here. No vaginal bleeding or discharge. No urinary symptoms. Related Data Home Medications Medication Instructions Recorded Confirmed methadone 10 mg/mL oral concentrate 90 mg PO DAILY 12/03/17 09/06/23 amoxicillin 875 mg-potassium 1 tab PO BID 10 days #20 tabs 09/06/23 clavulanate 125 mg tablet gabapentin 100 mg capsule 100 mg PO TID #30 caps 09/06/23 Previous Rx's Medication Instructions Recorded amoxicillin 875 mg-potassium 1 tab PO BID 10 days #20 tabs 09/06/23 clavulanate 125 mg tablet gabapentin 100 mg capsule 100 mg PO TID #30 caps 09/06/23 Allergies Allergy/AdvReac Type Severity Reaction Status Date / Time clindamycin Allergy Severe Swelling/Ed Unverified 09/06/23 12:18 toya ibuprofen Allergy Intermediate Swelling/Ed Unverified 09/06/23 12:18 toya indomethacin Allergy Intermediate Swelling/Ed Unverified 09/06/23 12:18 toya atomoxetine [From Strattera] Allergy Mild Other (See Unverified 09/06/23 12:18 Comment) latex Allergy Mild Itching Unverified 09/06/23 12:18 Latex, Natural Rubber Allergy Mild Skin Rash Unverified 09/06/23 12:18 methylphenidate Allergy Other (See Unverified 09/06/23 12:18 [From Concerta] Comment) almonds Allergy Other (See Uncoded 09/06/23 12:18 Comment) pecans Allergy Other (See Uncoded 09/06/23 12:18 Comment) General Stated Complaint: GenMedical NAVID: 3 Review of Systems Constitutional Constitutional: Denies chills, Denies fever(s) and Denies headache(s) Eyes Eyes: Denies change in vision ENT Ears, Nose, Mouth, and Throat: Denies abnormal hearing, Denies headache(s) and Denies odynophagia Cardiovascular Cardiovascular: Denies chest pain and Denies dyspnea Respiratory Respiratory: Denies dyspnea Gastrointestinal Gastrointestinal: Denies abdominal pain, Denies diarrhea, Denies nausea, Denies odynophagia and Denies vomiting Genitourinary Genitourinary: Denies dysuria Musculoskeletal Musculoskeletal: Denies abnormal gait and Denies myalgias Integumentary/Breasts Skin/Breast: Denies changing lesions Neurologic Neurologic: Denies abnormal hearing, Denies abnormal movements, Denies abnormal speech, Denies abnormal gait, Denies behavioral changes, Denies headache(s) and Reports paresthesias Psychiatric Psychiatric: Denies behavioral changes Endocrine Endocrine: Denies heat intolerance Hematologic/Lymphatic Hematologic/Lymphatic: Denies lymphadenopathy Exam Const General: cooperative Nutritional Appearance: average body habitus Orientation: alert, awake and oriented x3 HENMT Head: normal to inspection Ears: external ears normal Mouth: moist mucous membranes Eyes Pupils: PERRL EOM: EOM intact bilaterally and No nystagmus Neck Neck: full ROM and no tracheal deviation Chest Chest: normal inspection of the chest Resp Auscultation: clear to auscultation bilaterally Cardio Rate: regular rate Rhythm: regular rhythm GI Inspection: normal to inspection Palpation: soft, no guarding, not rigid and nontender Back/Spine/Pelvis Back: No no CVA tenderness Thoracic/Lumbar Spine: thoracic and lumbar spine normal to inspection Skin General skin exam: no rashes or lesions noted Neuro General: patient alert, patient awake and patient oriented x3 Cranial Nerves: CN's II-XI intact bilaterally, PERRL and no nystagmus Cognition: normal cognition Motor: muscle tone normal throughout and strength 5/5 throughout Sensory Exam: no sensory deficits noted Extrem General: normal to inspection Course Vital Signs Vital signs: Vital Signs Temperature 37.1 C 09/06/23 12:11 Pulse 81 09/06/23 12:11 Respiratory Rate 16 09/06/23 12:11 Blood Pressure 111/74 09/06/23 12:11 Pulse Oximetry 99 09/06/23 12:11 Temperature 37.1 C 09/06/23 12:24 Temperature Source Temporal Artery Scan 09/06/23 12:24 Pulse 81 09/06/23 12:24 Respiratory Rate 16 09/06/23 12:24 Respiratory Effort Normal, Non-Labored 09/06/23 12:24 Blood Pressure 111/74 09/06/23 12:24 Blood Pressure Position Sitting 09/06/23 12:24 Pulse Oximetry 99 09/06/23 12:24 Oxygen Delivery Method Room Air 09/06/23 12:24 Oxygen Flow Rate 0 09/06/23 12:24 Pain Level 8 09/06/23 12:24 Medical Decision Making 37-year-old female with history of substance use disorder now presents with paresthesias. Differential is broad. No focal findings on exam or history to explain the exact etiology of her symptoms. Will check TSH to look for hypothyroidism. Will get broad labs to look for electrolyte or metabolic derangements that could be contributing. Will check CBC to look for anemia. She has a nonfocal neurologic exam and I do not think this represents stroke at this time so no role for emergent imaging at this time. No neurodeficits as sensation is still intact. This certainly could be due to her substance use disorder but this would be a diagnosis of exclusion for now. Also raise the concern that it is possible that this could be related to withdrawal from xylazine and she said that that is certainly possible if it was in any of the drugs she has been smoking recently. Will give some IV fluids while awaiting initial labs and reevaluate. 139pm reeval Labs unremarkable. Unclear cause of paresthesias. Will discharge with primary care follow-up. Will give a course of antibiotics for a possible left upper dental infection as well. Lab Data Lab results reviewed: Yes I reviewed the patient's lab results. Labs: Labs unremarkable Quality:[facility] Related Social Needs: No Data to Display [facility] All Active Problems (Updated 09/06/23 @ 13:41 by Michele Oakley MD) Infected tooth (Acute) Paresthesia (Acute) Abnormal Pap smear of cervix (Acute) Abnormal defecation (Acute) Obstipation (Acute) Anxiety (Chronic) Asthma (Chronic) Shortness of breath (Acute) Hypokalemia (Acute) Other prolapse of vaginal manzano without mention of uterine prolapse (Acute) Hx of tubal ligation (Chronic) Hoarseness (Acute) Pain, eye, right (Acute) Paresthesia (Acute) Left leg pain (Acute) Fatigue (Acute) Medical History URI (upper respiratory infection) Aphthous ulcer Nasal ulcer Smoker Anxiety ADD (attention deficit disorder) Acne Depressive disorder Opioid dependence Cocaine abuse Latex allergy History of drug abuse Low back pain Rectocele Dental abscess Lumbar radiculopathy Urge urinary incontinence Plantar fasciitis Soft tissue abscess Surgical History History of bilateral tubal ligation S/P excision of lipoma low back, 2010 at [facility] Family History Son Idiopathic thrombocytopenic purpura (ITP) Social History Smoking/Tobacco Use Status: Current every day Tobacco Type: e-cigarettes Smoking risk assessment performed?: Yes Alcohol Intake: never Drug use: Current Sobriety Substance use type: crack/cocaine, opiates and IV drugs Details: daily methadone smoking fentanyl this morning. Housing: apartment Number of Children: 2 current occupation: Unemployed Sexually active: Yes Current gender identity: female Seatbelt use: always Do you feel safe at home: Yes Do you feel safe in your relationship?: Yes Female Reproductive History Menstrual control method: permanent sterilization History History 3 Para 2 Hx # Term Pregnancies Multiple births Hx # Pregnancies Ectopic pregnancies AB induced Hx Number of Living Children AB spontaneous Past Pregnancies Del. Date GA/Weeks # Preg Succ Route Wgt Sex Labor Lgth Anesth esia Location [facility] 10/20/03 32 Yes vaginal 3486.991 g Male [facility] 01/30/09 Yes vaginal 3628.739 g Male [facility] Delivery Date: 10/20/03 Last Updated by: Cherri Mckenzie Ty Delivery Date: 01/30/09 Last Updated by: Cherri Rutledge
[2023-09-06 12:51] LABS: Abs Immature Grans 0.01 10^3/uL (0.0-0.06); Absolute Basophil Count 0.04 10^3/uL (0.0-0.2); Absolute Eosinophil Count 0.08 10^3/uL (0.0-0.7); Absolute Lymphocyte Count 1.36 10^3/uL (1.2-3.4); Absolute Neutrophil Count 2.66 10^3/uL (1.2-6.7); Basophils % 0.9; Eosinophils % 1.8; Immature Grans % 0.2; Lymphocytes % 30.6; MCH 29.1 pg (27.0-33.0); MCHC 32.5 % (32.0-36.0); MCV 90 fL (80-95); MPV 10.2 fL (8.0-11.0); Monocytes % 6.7; Neutrophils % 59.8; Platelet Count 284 10^3/uL (130-400); RBC 4.47 10^6/uL (3.93-5.22); RDW 12.5 % (11.7-14.6); RDW-SD 41.2 fL; WBC 4.45 10^3/uL (4.4-10.8)
[2023-09-06] MEDS: Lactated Ringers 1,000 ML 1000 ML IV (13:00)
[2023-09-06 13:15] LABS: ALT 28 U/L (14-59); AST 20 U/L (15-37); Albumin 4.5 g/dL (3.4-5.0); Alkaline Phosphatase 69 U/L (46-116); Anion Gap 6.9 mmol/L (3-11); BUN 7 mg/dL (7-18); Bilirubin, Total 0.3 mg/dL (0.2-1.0); CO2 33.1 mmol/L (21.0-32.0); CREATININE 0.8 mg/dL (0.55-1.02); Calcium 9.1 mg/dL (8.5-10.1); Chloride 100 mmol/L (98-107); Estimated GFR 97.87 (mL/min/1.73m2); Glucose 111 mg/dL (74-106); Lipase 11 U/L (16-77); Magnesium 2.5 mg/dL (1.8-2.4); Potassium 3.6 mmol/L (3.5-5.1); Sodium 140 mmol/L (136-145); TSH (W/Ref FT4) 4.14 uIU/mL (0.36-3.74); Total Protein 8.4 g/dL (6.4-8.2)
[2023-09-06 13:27] LABS: HCG Qual (Serum) Negative
[2023-09-06 13:36] LABS: FREE T4 1.11 ng/dL (0.76-1.46)
== END 2023-09-06 13:46 | disposition home or self-care (01) ==
PROVIDERS: Emergency Provider Student in an Organized Health Care Education/Training Program; PCP Family Medicine
DX: R20.2 Paresthesia of skin (principal); K04.7 Periapical abscess without sinus; F19.10 Other psychoactive substance abuse, uncomplicated; F17.290 Nicotine dependence, other tobacco product, uncomplicated
CPT/HCPCS: 80053; 83690; 96360; 99284; 83735; 84100; 84439; 84443; 84703; 85025

== ENCOUNTER 2023-10-19 10:56 | Emergency (ER) | payer MEDICARE, MEDICAID, SELFPAY ==
[2023-10-19 11:00] VITALS: BP 126/60; PULSE 73; RESP 15; TEMP 36.6; O2SAT 97
--- NOTE | 2023-10-19 11:12 | ED.GENADUL_ITS ---
Discharge Plan Disposition Patient Disposition: Against Medical Advice Condition: Stable Discharge Details Clinical Impression: Abnormal uterine bleeding Primary Care Provider: Madhu Randle ED Provider: Armando Taylor Home Meds and New Rx's Prescriptions: No Action methadone 10 MG/ML concentrate 170 mg PO DAILY gabapentin 100 mg capsule 100 mg PO TID Qty: 30 0RF Discharge Instructions Instructions: Abnormal (Dysfunctional) Uterine Bleeding (ED) Additional Instructions: You were seen in the emergency department for your abnormal uterine bleeding, you may have an ovarian cyst that is bleeding and may have uterine fibroids. Your hemoglobin level is normal, you wished to leave AGAINST MEDICAL ADVICE without the ultrasound being read. Patient left while I was typing discharge paperwork. Attempted to leave while I was writing this with an IV in-place. Discharge Data Discharge Date/Time-TO BE ENTERED AT DEPARTURE: 10/19/23 13:24 HPI General Date/Time Provider Initiated Documentation: 10/19/23 10:58 . HPI Narrative: 37 year-old female presents to ED today by POV/ambulating with a chief complaint of heavy vaginal bleeding, filling a diva cup almost hourly since yesterday a fternoon- no prior history of abnormal uterine bleeding. Quality described as feels dizzy, feels near syncopal- patient is also significantly intoxicated on fentanyl this morning, cannot accurately describe or locate pain but states has had some lower abdominal pain and cramping, no radiation to nausea/vomiting, chest pain, shortness of breath, overt fever. Severity is described as unable to quantify. Palliating factors include nothing specific attempted. Provoking factors include nothing specific. Events leading up to the incident/Associated Symptoms: Patient has a history of tubal ligation. Patient has high anxiety that congealed vaginal blood per toilet is the same as DVT or PE conditions. Patient not anticoagulated. Related Data Home Medications Medication Instructions Recorded Confirmed methadone 10 mg/mL oral concentrate 170 mg PO DAILY 12/03/17 10/19/23 gabapentin 100 mg capsule 100 mg PO TID #30 caps 09/06/23 10/19/23 Previous Rx's Medication Instructions Recorded gabapentin 100 mg capsule 100 mg PO TID #30 caps 09/06/23 Allergies Allergy/AdvReac Type Severity Reaction Status Date / Time clindamycin Allergy Severe Swelling/Ed Unverified 10/19/23 13:11 toya ibuprofen Allergy Intermediate Swelling/Ed Unverified 10/19/23 13:11 toya indomethacin Allergy Intermediate Swelling/Ed Unverified 10/19/23 13:11 otya atomoxetine [From Strattera] Allergy Mild Other (See Unverified 10/19/23 13:11 Comment) latex Allergy Mild Itching Unverified 10/19/23 13:11 Latex, Natural Rubber Allergy Mild Skin Rash Unverified 10/19/23 13:11 methylphenidate Allergy Other (See Unverified 10/19/23 13:11 [From Concerta] Comment) almonds Allergy Other (See Uncoded 10/19/23 13:11 Comment) pecans Allergy Other (See Uncoded 10/19/23 13:11 Comment) 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 SKIN: Warm, pink, dry, intact, without rashes/lesions/ulcerations. HEAD: Normocephalic, atraumatic, normal hair distribution for gender/age. EYES: Pupils PERRLA, EOMs intact without nystagmus, normal conjunctiva, no exudates on lids/lashes. ENT: Nares patent, no circumoral cyanosis, no facial swelling NECK: Supple, trachea midline, painless cervical ROM. LUNGS/CHEST: Lungs CTA bilaterally- no rhonchi/rales/wheezes diffusely, non- labored respirations, normal A/P diameter, symmetrical expansion, no chest wall deformity HEART (CV/PV): Regular rate and rhythm without murmur, no peripheral edema, no JVD. ABDOMEN: Soft, non-distended, no guarding, mild suprapubic tenderness, no Rovsing's, negative Carreon's, no McBurney's point tenderness. PELVIC: Patient left AMA prior to pelvic exam MSK: Normal ROM, no swelling/deformity to bilateral UEs or LEs, moving all extremities without weakness, no cyanosis, spine midline without tenderness, normal curvature. NEURO: Mental Status AAOx4 - alert to person, place, time, events No facial droop, no forehead involvement. Motor: No focal weakness - strength 5/5 in bilateral UEs and LEs, proximal and distal, symmetric. Sensory: sensation intact to light touch globally. Gait normal: patient ambulated without ataxia into ED room. PSYCH: euthymic, cooperative, pleasant, appropriate speech Course Vital Signs Vital signs: Vital Signs Temperature 36.6 C 10/19/23 11:00 Pulse 73 10/19/23 11:00 Respiratory Rate 15 10/19/23 11:00 Blood Pressure 126/60 10/19/23 11:00 Pulse Oximetry 97 10/19/23 11:00 Temperature 36.6 C 10/19/23 11:00 Temperature Source Tympanic 10/19/23 11:00 Pulse 73 10/19/23 11:00 Respiratory Rate 15 10/19/23 11:00 Blood Pressure 126/60 10/19/23 11:00 Blood Pressure Position Sitting 10/19/23 11:00 Pulse Oximetry 97 10/19/23 11:00 Medical Decision Making This dictation utilizes [id number] dictation software and may contain unedited grammatical errors. 37 y/o F presents to ED today with a chief complaint of heavy vaginal bleeding since yesterday afternoon, reports dizziness, feels near syncopal, denies chest pain, denies shortness of breath, denies fever- patient has history of tubal ligation, denies history of PCOS/fibroids. Patient endorses fentanyl use this morning, feels the blood clot she has passed into the toilet from her congealed vaginal bleeding is the same condition like PE or DVT and has high anxiety over . Patients' medical history: Opioid dependence, cocaine abuse, low back pain, asthma, hypokalemia. Family and social history: noncontributory. Pertinent exam findings / vital signs include mild suprapubic discomfort with palpation, no peritoneal signs, benign cardiopulmonary status, intoxicated on opiates. Differential / pathologies of concern include fibroids, hemorrhagic ovarian cyst, vaginal bleeding, unlikely STI, not . Diagnostic studies of: -CBC, CMP, Lactate, Lipase, UA, UDS, PT/PTT, Type and Screen, US Pelvic non-OB. -CBC shows no anemia, no elev WBCs -CMP benign, no ERNST -Lactate WNL -Lipase neg -UA no infection -UDS pos for benzo's, methadone, cocaine -PT/PTT benign -Type & Screen O POS -US pelvic shows no pathology Interventions of: -none, patient left AMA. ED Course/Assessment/Plan: Highly intoxicated patient on fentanyl presents with abnormal uterine bleeding. States she has been feeling her diva cup hourly since yesterday. She equated the congealed vaginal blood with disorders like DVT and PE and was current concerned she was dying of blood clots. Provided significant reassurance that this is not a concern, had mild lower abdominal pain without concern for severe abdominal pathology on exam. Her labs are reassuring with no anemia, no UTI, patient has not been sexually active in the past year. There is no findings on her ultrasound, the patient left AGAINST MEDICAL ADVICE prior to ultrasound results, attempted to leave with IV in place likely for IV drug use. Findings not consistent with acute hemorrhage, fibroids, ovarian cyst, infection. Disposition of Abnormal Uterine Bleeding. Patient verbalized understanding of the plan and return to ED criteria and engaged in shared decision making. Medical Records Medical records reviewed: Yes I reviewed the patient's medical records. Imaging Data Radiologic Study: Attestation: I personally reviewed and interpreted this imaging study as follows: Imaging: Ultrasound Radiologist's impression: EXAM: US PELVIS TRANSVAGINAL CLINICAL HISTORY: vaginal bleeding, hx tubal ligation TECHNIQUE: Ultrasound of the pelvis was performed both transabdominal and transvaginal. COMPARISON: US US ABD PELV TRANSVAG NON-OB from 12/05/2022 FINDINGS: UTERUS: Nongravid and anteverted Measures 6.8 cm length x 4 cm AP x 4.6 cm wide. There are no uterine fibroids. Endometrial thickness measures 8 mm. There is no fluid in the endometrial canal. CERVIX: There are no obvious nabothian cysts. RIGHT OVARY: Measures 2.5 x 1.1 x 1.2 cm No significant cysts nor masses evident in the right ovary. LEFT OVARY: Measures 1.7 x 1.5 x 1.5 cm No significant cysts nor masses evident in the left ovary. CUL-DE-SAC: No free fluid evident. IMPRESSION: 1. Normal appearing uterus and age-appropriate endometrium. 2. No abnormal ovarian findings. 3. No free fluid evident in the adnexal regions and cul-de-sac. Lab Data Lab results reviewed: Yes I reviewed the patient's lab results. Labs: Laboratory Tests Range/Units 10/19/23 10/19/23 10/19/23 11:20 11:45 11:56 WBC (4.4-10.8) 10^3/uL 5.00 RBC (3.93-5.22) 10^6/uL 4.30 Hgb (11.2-15.7) g/dL 12.7 Hct (36.0-46.0) % 38.4 MCV (80-95) fL 89 MCH (27.0-33.0) pg 29.5 MCHC (32.0-36.0) % 33.1 RDW (11.7-14.6) % 13.0 Plt Count (130-400) 10^3/uL 251 MPV (8.0-11.0) fL 10.1 Immature Gran % % 0.2 Neutrophils % % 69.8 Lymphocytes % % 22.0 Monocytes % % 7.4 Eosinophils % % 0.2 Basophils % % 0.4 Nucleated RBC % (0.0-0.3) % 0.0 Absolute Neutrophils (1.2-6.7) 10^3/uL 3.49 Absolute Lymphocytes (1.2-3.4) 10^3/uL 1.10 L Absolute Monocytes (0.1-0.8) 10^3/uL 0.37 Absolute Eosinophils (0.0-0.7) 10^3/uL 0.01 Absolute Basophils (0.0-0.2) 10^3/uL 0.02 PT (9.1-11.1) sec 10.7 INR (0.9-1.1) 1.1 APTT (23.6-32.8) sec 28.3 VBG Lactate (0.6-1.4) mmol/L 0.8 Sodium (136-145) mmol/L 140 Potassium (3.5-5.1) mmol/L 3.6 Chloride (98-107) mmol/L 102 Carbon Dioxide (21.0-32.0) mmol/L 29.0 Anion Gap (3-11) mmol/L 9.0 BUN (7-18) mg/dL 13 Creatinine (0.55-1.02) mg/dL 0.8 Est GFR (CKD-EPI 2020) (mL/min/1.73m2) 97.87 Glucose (74-106) mg/dL 148 H Calcium (8.5-10.1) mg/dL 9.6 Total Bilirubin (0.2-1.0) mg/dL 0.7 AST (15-37) U/L 19 ALT (14-59) U/L 32 Alkaline Phosphatase (46-116) U/L 47 Total Protein (6.4-8.2) g/dL 8.1 Albumin (3.4-5.0) g/dL 4.3 Lipase (16-77) U/L 16 Procalcitonin ng/mL < 0.1 Urine Color (Yellow) Yellow Urine Clarity (Clear) Clear Urine pH (5-8) 5.5 Ur Specific [place] (1.005-1.025) >= 1.030 H Urine Protein (Neg-Trace) mg/dL 30 H Urine Ketones (Negative) mg/dL 80 H Urine Blood (Negative) Large H Urine Nitrite (Negative) Negative Urine Bilirubin (Negative) Small H Urine Urobilinogen (Up to 0.2) mg/dL 0.2 Ur Leukocyte Esterase (Negative) Negative Urine RBC (0-2) HPF 10-20 H Urine WBC (0-5) HPF 0-2 Ur Epithelial Cells (Negative) HPF Moderate Urine Crystals (Negative) HPF Negative Urine Bacteria (Negative) HPF Few Urine Casts (Negative) LPF Negative Urine Mucus (Negative) Heavy Ur Culture Indicated? No/Sq. Contamination Urine Glucose (Negative) mg/dL Negative Urine Opiates Screen (Negative) Negative Urine Methadone Screen (Negative) Positive A Ur Barbiturates Screen (Negative) Negative Ur Tricyclics Screen (Negative) Negative Ur Amphetamines Screen (Negative) Negative U Benzodiazepines Scrn (Negative) Positive A Urine Cocaine Screen (Negative) Positive A Ur THC Screen (Negative) Negative ABO/Rh O Positive Antibody Screen NEGATIVE Quality:SDOH Health Related Social Needs: No Data to Display PFSH All Active Problems (Updated 10/19/23 @ 13:18 by LANNY Coronado) Abnormal uterine bleeding (Acute) Abnormal Pap smear of cervix (Acute) Abnormal defecation (Acute) Obstipation (Acute) Anxiety (Chronic) Asthma (Chronic) Shortness of breath (Acute) Hypokalemia (Acute) Other prolapse of vaginal manzano without mention of uterine prolapse (Acute) Hx of tubal ligation (Chronic) Hoarseness (Acute) Pain, eye, right (Acute) Paresthesia (Acute) Left leg pain (Acute) Fatigue (Acute) Medical History URI (upper respiratory infection) Aphthous ulcer Nasal ulcer Smoker Anxiety ADD (attention deficit disorder) Acne Depressive disorder Opioid dependence Cocaine abuse Latex allergy History of drug abuse Low back pain Rectocele Dental abscess Lumbar radiculopathy Urge urinary incontinence Plantar fasciitis Soft tissue abscess Surgical History History of bilateral tubal ligation S/P excision of lipoma low back, 2010 at [facility] Family History Son Idiopathic thrombocytopenic purpura (ITP) Social History Smoking/Tobacco Use Status: Current every day Tobacco Type: e-cigarettes Smoking risk assessment performed?: Yes Alcohol Intake: never Drug use: Current Sobriety Substance use type: crack/cocaine, opiates and IV drugs Details: daily methadone smoking fentanyl this morning. Housing: apartment Number of Children: 2 current occupation: Unemployed Sexually active: Yes Current gender identity: female Seatbelt use: always Do you feel safe at home: Yes Do you feel safe in your relationship?: Yes Female Reproductive History Menstrual control method: permanent sterilization History History 3 Para 2 Hx # Term Pregnancies Multiple births Hx # Pregnancies Ectopic pregnancies AB induced Hx Number of Living Children AB spontaneous Past Pregnancies Del. Date GA/Weeks # Preg Succ Route Wgt Sex Labor Lgth Anesth esia Location [facility] 10/20/03 32 Yes vaginal 3486.991 g Male [facility] 01/30/09 Yes vaginal 3628.739 g Male [facility] Delivery Date: 10/20/03 Last Updated by: Cherri Vaughn Delivery Date: 01/30/09 Last Updated by: Cherri Rutledge
--- NOTE | 2023-10-19 11:30 | DI.US_ITS ---
Exam(s) US PELVIS TRANSVAGINAL EXAM: US PELVIS TRANSVAGINAL CLINICAL HISTORY: vaginal bleeding, hx tubal ligation TECHNIQUE: Ultrasound of the pelvis was performed both transabdominal and transvaginal. COMPARISON: US US ABD PELV TRANSVAG NON-OB from 12/05/2022 FINDINGS: UTERUS: Nongravid and anteverted Measures 6.8 cm length x 4 cm AP x 4.6 cm wide. There are no uterine fibroids. Endometrial thickness measures 8 mm. There is no fluid in the endometrial canal. CERVIX: There are no obvious nabothian cysts. RIGHT OVARY: Measures 2.5 x 1.1 x 1.2 cm No significant cysts nor masses evident in the right ovary. LEFT OVARY: Measures 1.7 x 1.5 x 1.5 cm No significant cysts nor masses evident in the left ovary. CUL-DE-SAC: No free fluid evident. IMPRESSION: 1. Normal appearing uterus and age-appropriate endometrium. 2. No abnormal ovarian findings. 3. No free fluid evident in the adnexal regions and cul-de-sac. DATA REPOSITORY:
[2023-10-19 11:50] LABS: Lactate 0.8 mmol/L (0.6-1.4)
[2023-10-19 11:52] LABS: Abs Immature Grans 0.01 10^3/uL (0.0-0.06); Absolute Basophil Count 0.02 10^3/uL (0.0-0.2); Absolute Eosinophil Count 0.01 10^3/uL (0.0-0.7); Absolute Monocyte Count 0.37 10^3/uL (0.1-0.8); Absolute Neutrophil Count 3.49 10^3/uL (1.2-6.7); Basophils % 0.4 %; Eosinophils % 0.2 %; HCT 38.4 % (36.0-46.0); HGB 12.7 g/dL (11.2-15.7); Immature Grans % 0.2 %; MCH 29.5 pg (27.0-33.0); MCHC 33.1 % (32.0-36.0); MCV 89 fL (80-95); MPV 10.1 fL (8.0-11.0); Monocytes % 7.4 %; Neutrophils % 69.8 %; Platelet Count 251 10^3/uL (130-400); RDW-SD 42.4 fL
[2023-10-19 12:04] LABS: INR 1.1 (0.9-1.1); PTT Activated 28.3 sec (23.6-32.8); Prothrombin Time 10.7 sec (9.1-11.1)
[2023-10-19 12:07] LABS: ALT 32 U/L (14-59); AST 19 U/L (15-37); Albumin 4.3 g/dL (3.4-5.0); Alkaline Phosphatase 47 U/L (46-116); BUN 13 mg/dL (7-18); Bilirubin, Total 0.7 mg/dL (0.2-1.0); CREATININE 0.8 mg/dL (0.55-1.02); Calcium 9.6 mg/dL (8.5-10.1); Chloride 102 mmol/L (98-107); Estimated GFR 97.87 (mL/min/1.73m2); Glucose 148 mg/dL (74-106); Lipase 16 U/L (16-77); Potassium 3.6 mmol/L (3.5-5.1); Sodium 140 mmol/L (136-145); Total Protein 8.1 g/dL (6.4-8.2)
[2023-10-19 12:15] LABS: Bilirubin Small (Negative); Blood Large (Negative); Clarity Clear (Clear); Glucose Negative (Negative); Ketones 80 mg/dL (Negative); Leukocyte Esterase Negative (Negative); Nitrite Negative (Negative); Specific Gravity >= 1.030 (1.005-1.025); Urobilinogen 0.2 mg/dL (Up to 0.2); pH 5.5 (5-8)
[2023-10-19 12:19] LABS: *AMPHETAMINES SCREEN URINE Negative (Negative); *BARBITURATES SCREEN URINE Negative (Negative); *BENZODIAZEPINES SCREEN URINE Positive (Negative); Cannabinoids THC Negative (Negative); Cocaine Screen,Urine Positive (Negative); METHADONE URINE SCREEN Positive (Negative); OPIATES URINE SCREEN Negative (Negative); Tricyclic Antidepressants Negative (Negative)
[2023-10-19 12:30] LABS: Procalcitonin < 0.1 ng/mL
[2023-10-19 12:31] LABS: Epithelial Cells Moderate HPF (Negative); WBC 0-2 HPF (0-5)
[2023-10-19 12:32] LABS: Bacteria Few HPF (Negative)
[2023-10-19 12:33] LABS: C & S Indicated? No/Sq. Contamination; Casts Negative LPF (Negative); Crystals Negative HPF (Negative); Mucus Heavy (Negative)
== END 2023-10-19 13:24 | disposition left against medical advice (07) ==
PROVIDERS: Emergency Provider Physician Assistant; PCP Family Medicine
DX: R10.30 Lower abdominal pain, unspecified (principal); N93.9 Abnormal uterine and vaginal bleeding, unspecified; R42 Dizziness and giddiness; Z53.29 Procedure and treatment not carried out because of patient's decision for other reasons
CPT/HCPCS: 36415; 80053; 80307; 83690; 84145; 86850; 86900; 86901; 99284; 76830; 76856; 81003; 81015; 83605; 85025; 85610; 85730; 99283

== ENCOUNTER 2024-01-29 12:20 | Emergency (ER) | payer MEDICARE, MEDICAID, SELFPAY ==
[2024-01-29 12:22] VITALS: BP 114/83; PULSE 83; RESP 18; TEMP 36.4; O2SAT 98
--- NOTE | 2024-01-29 12:42 | W.ED.GENAD ---
Discharge Plan Disposition Patient Disposition: Home Condition: Stable Discharge Details Clinical Impression: Vaginitis, Trichomonas vaginitis Primary Care Provider: Madhu Randle ED Provider: Corbin Oakley Home Meds and New Rx's Prescriptions: New metronidazole 500 mg tablet 500 mg PO Q8H Qty: 21 0RF Continued methadone 10 MG/ML concentrate 110 mg PO DAILY gabapentin 100 mg capsule 100 mg PO TID Qty: 30 0RF Discharge Instructions Additional Instructions: You are positive for trichomonas which is treated with metronidazole Follow-up with your primary care provider within 1 to 2 weeks especially if not improving If you feel more ill or have any symptoms such as high fevers or persistent vomiting return to the emergency department for reevaluation HPI General Mode of arrival: ambulatory. Date/Time Provider Initiated Documentation: 01/29/24 12:32. Limitations to Documentation: no limitations. Information obtained by: patient. History of Present Illness 38 year old F presents to the emergency department with the chief complaint of vaginal discharge, described as moderate, Patient started experiencing this week(s) (2) and it has been constant. No relieving factors improve symptom(s), No exacerbating factors reported . Patient notes no other symptoms.; denies fever/chills and shortness of breath. Patient did receive the following treatments prior to arrival, none Related Data Home Medications ?Medication ?Instructions ?Recorded ?Confirmed methadone 10 mg/mL oral concentrate 110 mg PO DAILY 12/03/17 01/29/24 gabapentin 100 mg capsule 100 mg PO TID #30 caps 09/06/23 01/29/24 metronidazole 500 mg tablet 500 mg PO Q8H #21 tabs 01/29/24 Previous Rx's ?Medication ?Instructions ?Recorded gabapentin 100 mg capsule 100 mg PO TID #30 caps 09/06/23 metronidazole 500 mg tablet 500 mg PO Q8H #21 tabs 01/29/24 Allergies Allergy/AdvReac Type Severity Reaction Status Date / Time clindamycin Allergy Severe Swelling/Ed Unverified 01/29/24 12:27 toya ibuprofen Allergy Intermediate Swelling/Ed Unverified 01/29/24 12:27 toya indomethacin Allergy Intermediate Swelling/Ed Unverified 01/29/24 12:27 toya atomoxetine (From Strattera) Allergy Mild Other (See Unverified 01/29/24 12:27 Comment) latex Allergy Mild Itching Unverified 01/29/24 12:27 Latex, Natural Rubber Allergy Mild Skin Rash Unverified 01/29/24 12:27 methylphenidate (From Allergy Other (See Unverified 01/29/24 12:27 Concerta) Comment) almonds Allergy Other (See Uncoded 01/29/24 12:27 Comment) pecans Allergy Other (See Uncoded 01/29/24 12:27 Comment) 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 Review of Systems All systems reviewed & are unremarkable except as noted in HPI and below Constitutional Constitutional: Denies chills, Denies fever(s) and Denies weakness Cardiovascular Cardiovascular: Denies chest pain and Denies dyspnea Respiratory Respiratory: Denies cough and Denies dyspnea Gastrointestinal Gastrointestinal: Denies abdominal pain, Denies nausea and Denies vomiting Genitourinary Genitourinary: Reports vaginal discharge and Reports vaginal odor Musculoskeletal Musculoskeletal: Denies joint swelling Neurologic Neurologic: Denies weakness Exam Const General: no acute distress Orientation: alert HENMT Head: normal to inspection Ears: external ears normal General nose exam: external nose normal Mouth: moist mucous membranes Eyes General: appearance normal, both eyes and all related structures Neck Neck: normal visual inspection Resp Effort & Inspection: normal respiratory effort and able to speak in complete sentences Cardio Rate: regular rate GI Palpation: soft and nontender Skin General skin exam: no rashes or lesions noted Neuro General: patient alert and patient oriented x3 Extrem General: normal to inspection Psych Mental Status: mental status grossly normal Course Vital Signs Vital signs: Vital Signs Temperature 36.4 C L 01/29/24 12:22 Pulse 83 01/29/24 12:22 Respiratory Rate 18 01/29/24 12:22 Blood Pressure 114/83 01/29/24 12:22 Pulse Oximetry 98 01/29/24 12:22 Temperature 36.4 C L 01/29/24 12:22 Temperature Source Temporal Artery Scan 01/29/24 12:22 Pulse 83 01/29/24 12:22 Respiratory Rate 18 01/29/24 12:22 Blood Pressure 114/83 01/29/24 12:22 Blood Pressure Position Sitting 01/29/24 12:22 Pulse Oximetry 98 01/29/24 12:22 Oxygen Delivery Method Room Air 01/29/24 12:22 Oxygen Flow Rate 0 01/29/24 12:22 Medical Decision Making 38-year-old female who denies any significant chronic medical problems comes in with 2 weeks of orders vaginal discharge since she describes as yellow. She denies any abdominal pain, fevers, chills. She says she had unprotected sex about a month ago. She is alert and oriented x 4 on arrival. She has no abdominal tenderness, no back tenderness. Discussed with her and she would prefer to obtain a vaginal path specimen herself which I feel is reasonable. Given the lack of abdominal tenderness or pelvic pain doubt brain pathology such as ovarian cyst versus torsion versus abscess do not feel any acute imaging indicated. Will check UA, vaginal path screen and GC chlamydia. Patient stable, positive for trichomonas we will start Flagyl. Patient was advised to notify partner as they should also be treated. She will follow-up with her PCP and return precautions given Differential Diagnosis Differential Diagnosis: bacterial vaginosis, gc/chlamydia, vaginitis Lab Data Lab results reviewed: Yes I reviewed the patient's lab results. Quality:SDOH Health Related Social Needs: No Data to Display PFSH All Active Problems (Updated 01/29/24 @ 14:45 by Corbin Oakley MD) Trichomonas vaginitis (Acute) Vaginitis (Acute) Abnormal Pap smear of cervix (Acute) Abnormal defecation (Acute) Obstipation (Acute) Anxiety (Chronic) Asthma (Chronic) Shortness of breath (Acute) Hypokalemia (Acute) Other prolapse of vaginal manzano without mention of uterine prolapse (Acute) Hx of tubal ligation (Chronic) Hoarseness (Acute) Pain, eye, right (Acute) Paresthesia (Acute) Left leg pain (Acute) Fatigue (Acute) Medical History URI (upper respiratory infection) Aphthous ulcer Nasal ulcer Smoker Anxiety ADD (attention deficit disorder) Acne Depressive disorder Opioid dependence Cocaine abuse Latex allergy History of drug abuse Low back pain Rectocele Dental abscess Lumbar radiculopathy Urge urinary incontinence Plantar fasciitis Soft tissue abscess Surgical History History of bilateral tubal ligation S/P excision of lipoma low back, 2009 at [facility] Family History Son Idiopathic thrombocytopenic purpura (ITP) Social History Smoking/Tobacco Use Status: Current every day Tobacco Type: e-cigarettes Smoking risk assessment performed?: Yes Alcohol Intake: never Drug use: Current Sobriety Substance use type: crack/cocaine, opiates and IV drugs Details: daily methadone smoking fentanyl this morning. Housing: apartment Number of Children: 2 current occupation: Unemployed Sexually active: Yes Current gender identity: female Seatbelt use: always Do you feel safe at home: Yes Do you feel safe in your relationship?: Yes Female Reproductive History Menstrual control method: permanent sterilization History History 3 Para 2 Hx # Term Pregnancies Multiple births Hx # Pregnancies Ectopic pregnancies AB induced Hx Number of Living Children AB spontaneous Past Pregnancies Del. Date GA/Weeks # Preg Succ Route Wgt Sex Labor Lgth Anesthesia Location [facility] 10/20/03 32 Yes vaginal 3486.991 g Male [facility] 01/30/09 Yes vaginal 3628.739 g Male [facility] Delivery Date: 10/20/03 Last Updated by: Cherri Mckenzie Ty Delivery Date: 01/30/09 Last Updated by: Cherri Rutledge
[2024-01-29 13:03] LABS: Bilirubin Negative (Negative); Blood Negative (Negative); Clarity Clear (Clear); Glucose Negative (Negative); Ketones Negative (Negative); Leukocyte Esterase Moderate (Negative); Nitrite Negative (Negative); Urobilinogen 0.2 mg/dL (Up to 0.2); pH 5.5 (5-8)
[2024-01-29 13:16] LABS: RBC 0-2 HPF (0-2)
[2024-01-29 13:17] LABS: Bacteria Few HPF (Negative); C & S Indicated? No/Sq. Contamination; Crystals Negative HPF (Negative); Epithelial Cells Moderate HPF (Negative); Mucus Negative (Negative)
[2024-01-29 14:53] VITALS: BP 106/45; PULSE 67; RESP 18; O2SAT 98
[2024-02-01 12:57] LABS: Chlamydia Result Negative (Negative); GC Result Negative (Negative)
== END 2024-01-29 14:56 | disposition home or self-care (01) ==
PROVIDERS: Emergency Provider Emergency Medicine; PCP Family Medicine
DX: A59.01 Trichomonal vulvovaginitis (principal); F17.290 Nicotine dependence, other tobacco product, uncomplicated
CPT/HCPCS: 81025; 87491; 87591; 99283; 81003; 81015; 87480; 87510; 87660

== ENCOUNTER 2024-03-21 08:02 | Emergency (ER) | payer MEDICARE, MEDICAID, SELFPAY ==
[2024-03-21 08:11] VITALS: BP 116/60; PULSE 60; RESP 16; TEMP 36.4; O2SAT 97
[2024-03-21] MEDS: Benzocaine 20% Gel 30 GM JAR MM (08:58)
--- NOTE | 2024-03-21 09:03 | ED.GENADUL_ITS ---
Discharge Plan Disposition Patient Disposition: Left Without Being Seen Discharge Details Primary Care Provider: Madhu Randle ED Provider: Mj Story Discharge Data Discharge Date/Time-TO BE ENTERED AT DEPARTURE: 03/21/24 10:36 HPI General Mode of arrival: ambulatory . Date/Time Provider Initiated Documentation: 03/21/24 08:17 . Related Data Home Medications ?Medication ?Instructions ?Recorded ?Confirmed methadone 10 mg/mL oral concentrate 120 mg PO DAILY 12/03/17 03/22/24 gabapentin 100 mg capsule 100 mg PO TID #30 caps 09/06/23 03/22/24 metronidazole 500 mg tablet 500 mg PO Q8H #21 tabs 01/29/24 amoxicillin 875 mg-potassium 1 tab PO BID 7 days #14 tabs 03/22/24 clavulanate 125 mg tablet Previous Rx's ?Medication ?Instructions ?Recorded gabapentin 100 mg capsule 100 mg PO TID #30 caps 09/06/23 metronidazole 500 mg tablet 500 mg PO Q8H #21 tabs 01/29/24 amoxicillin 875 mg-potassium 1 tab PO BID 7 days #14 tabs 03/22/24 clavulanate 125 mg tablet Allergies Allergy/AdvReac Type Severity Reaction Status Date / Time clindamycin Allergy Severe Swelling/Ed Unverified 01/29/24 12:27 toya ibuprofen Allergy Intermediate Swelling/Ed Unverified 01/29/24 12:27 toya indomethacin Allergy Intermediate Swelling/Ed Unverified 01/29/24 12:27 toya atomoxetine (From Strattera) Allergy Mild Other (See Unverified 01/29/24 12:27 Comment) latex Allergy Mild Itching Unverified 01/29/24 12:27 Latex, Natural Rubber Allergy Mild Skin Rash Unverified 01/29/24 12:27 methylphenidate (From Allergy Other (See Unverified 01/29/24 12:27 Concerta) Comment) almonds Allergy Other (See Uncoded 01/29/24 12:27 Comment) pecans Allergy Other (See Uncoded 01/29/24 12:27 Comment) General Stated Complaint: DentalOral NAVID: 4 Course Vital Signs Vital signs: Vital Signs Temperature 36.4 C 03/21/24 08:11 Pulse 60 03/21/24 08:11 Respiratory Rate 16 03/21/24 08:11 Blood Pressure 116/60 03/21/24 08:11 Pulse Oximetry 97 03/21/24 08:11 Temperature 36.4 C 03/21/24 08:11 Temperature Source Temporal Artery Scan 03/21/24 08:11 Pulse 60 03/21/24 08:11 Respiratory Rate 16 03/21/24 08:11 Blood Pressure 116/60 03/21/24 08:11 Blood Pressure Position Sitting 03/21/24 08:11 Pulse Oximetry 97 03/21/24 08:11 Oxygen Delivery Method Room Air 03/21/24 08:11 Oxygen Flow Rate 0 03/21/24 08:11 Medical Decision Making Patient was not in the exam room 11 when I went to see her multiple times. Patient eloped prior to my assessment. Quality:SDOH Health Related Social Needs: No Data to Display PFSH All Active Problems (Updated 03/22/24 @ 10:39 by LANNY Miranda) Dental infection (Acute) Abnormal Pap smear of cervix (Acute) Abnormal defecation (Acute) Obstipation (Acute) Anxiety (Chronic) Asthma (Chronic) Shortness of breath (Acute) Hypokalemia (Acute) Other prolapse of vaginal manzano without mention of uterine prolapse (Acute) Hx of tubal ligation (Chronic) Hoarseness (Acute) Pain, eye, right (Acute) Paresthesia (Acute) Left leg pain (Acute) Fatigue (Acute) Medical History URI (upper respiratory infection) Aphthous ulcer Nasal ulcer Smoker Anxiety ADD (attention deficit disorder) Acne Depressive disorder Opioid dependence Cocaine abuse Latex allergy History of drug abuse Low back pain Rectocele Dental abscess Lumbar radiculopathy Urge urinary incontinence Plantar fasciitis Soft tissue abscess Surgical History History of bilateral tubal ligation S/P excision of lipoma low back, 2010 at [facility] Family History Son Idiopathic thrombocytopenic purpura (ITP) Social History Smoking/Tobacco Use Status: Current every day Tobacco Type: e-cigarettes Smoking risk assessment performed?: Yes Alcohol Intake: never Drug use: Current Sobriety Substance use type: crack/cocaine, opiates and IV drugs Housing: apartment Number of Children: 2 current occupation: Unemployed Sexually active: Yes Current gender identity: female Seatbelt use: always Do you feel safe at home: Yes Do you feel safe in your relationship?: Yes Female Reproductive History Menstrual control method: permanent sterilization History History 3 Para 2 Hx # Term Pregnancies Multiple births Hx # Pregnancies Ectopic pregnancies AB induced Hx Number of Living Children AB spontaneous Past Pregnancies Del. Date GA/Weeks # Preg Succ Route Wgt Sex Labor Lgth Anesth esia Location [facility] 10/20/03 32 Yes vaginal 3486.991 g Male [facility] 01/30/09 Yes vaginal 3628.739 g Male [facility] Delivery Date: 10/20/03 Last Updated by: Cherri Mckenzie Ty Delivery Date: 01/30/09 Last Updated by: Cherri Rutledge
== END 2024-03-21 10:36 | disposition left against medical advice (07) ==
PROVIDERS: Emergency Provider Student in an Organized Health Care Education/Training Program; PCP Family Medicine
DX: Z53.21 Procedure and treatment not carried out due to patient leaving prior to being seen by health care provider (principal); K08.89 Other specified disorders of teeth and supporting structures
CPT/HCPCS: 99283

== ENCOUNTER 2024-03-22 09:11 | Emergency (ER) | payer MEDICARE, MEDICAID, SELFPAY ==
[2024-03-22 09:37] VITALS: BP 131/60; PULSE 86; RESP 18; TEMP 36.8
--- NOTE | 2024-03-22 10:38 | W.ED.GENAD ---
Discharge Plan Disposition Patient Disposition: Home Condition: Good Discharge Details Clinical Impression: Dental infection Primary Care Provider: Madhu Randle ED Provider: Damari Leigh Home Meds and New Rx's Prescriptions: New amoxicillin-pot clavulanate 875-125 mg tablet 1 tab PO BID 7 Days Qty: 14 0RF Continued methadone 10 MG/ML concentrate 120 mg PO DAILY gabapentin 100 mg capsule 100 mg PO TID Qty: 30 0RF metronidazole 500 mg tablet 500 mg PO Q8H Qty: 21 0RF Discharge Instructions Instructions: Dental Pain ED, Tooth Abscess ED Additional Instructions: Your history and exam is concerning for dental infection. Please encourage hydration. You may use Tylenol and ibuprofen as needed for discomfort, please take as directed on the packaging. I also encourage that you speak further with Rinku about your methadone dosing to try and help you stay clean and safe. Please take the antibiotics as prescribed. Even if symptoms improve, please take the entire course. May want to take a probiotic to help prevent diarrhea. I also encourage dietary intake of yogurt will also help with that. Attached a list of local dentist. You will need definitive care with a dentist or there is certainly risk that this will recur. If you develop fever/chills, increased pain, increased swelling, difficulty swallowing or other new/worsening symptoms please seek care urgently once again. In regard to the sensation in your throat, I encourage that you continue to cut back on smoking and take the antibitoics, you may need referral to ENT for further evaluation. Please follow up with primary care in one week for reevaluation. Referrals: Madhu Randle MD [Primary Care Provider] - Discharge Data Discharge Date/Time-TO BE ENTERED AT DEPARTURE: 03/22/24 11:10 HPI General Date/Time Provider Initiated Documentation: 03/22/24 09:12. Limitations to Documentation: no limitations. Information obtained by: patient and RN notes reviewed. History of Present Illness 38 year old F presents to the emergency department with the chief complaint of left lower dental pain, described as moderate and similar to prior episodes, Quality is described as stabbing, and is localized to the mouth. Patient reports no radiation. Patient started experiencing this day(s) and it has been constant. No relieving factors improve symptom(s), No exacerbating factors reported . Patient notes no other symptoms.. Patient did receive the following treatments prior to arrival, none Related Data Home Medications ?Medication ?Instructions ?Recorded ?Confirmed methadone 10 mg/mL oral concentrate 120 mg PO DAILY 12/03/17 03/22/24 gabapentin 100 mg capsule 100 mg PO TID #30 caps 09/06/23 03/22/24 metronidazole 500 mg tablet 500 mg PO Q8H #21 tabs 01/29/24 amoxicillin 875 mg-potassium 1 tab PO BID 7 days #14 tabs 03/22/24 clavulanate 125 mg tablet Previous Rx's ?Medication ?Instructions ?Recorded gabapentin 100 mg capsule 100 mg PO TID #30 caps 09/06/23 metronidazole 500 mg tablet 500 mg PO Q8H #21 tabs 01/29/24 amoxicillin 875 mg-potassium 1 tab PO BID 7 days #14 tabs 03/22/24 clavulanate 125 mg tablet Allergies Allergy/AdvReac Type Severity Reaction Status Date / Time clindamycin Allergy Severe Swelling/Ed Unverified 01/29/24 12:27 toya ibuprofen Allergy Intermediate Swelling/Ed Unverified 01/29/24 12:27 toya indomethacin Allergy Intermediate Swelling/Ed Unverified 01/29/24 12:27 toya atomoxetine (From Strattera) Allergy Mild Other (See Unverified 01/29/24 12:27 Comment) latex Allergy Mild Itching Unverified 01/29/24 12:27 Latex, Natural Rubber Allergy Mild Skin Rash Unverified 01/29/24 12:27 methylphenidate (From Allergy Other (See Unverified 01/29/24 12:27 Concerta) Comment) almonds Allergy Other (See Uncoded 01/29/24 12:27 Comment) pecans Allergy Other (See Uncoded 01/29/24 12:27 Comment) General Stated Complaint: DentalOral NAVID: 3 Review of Systems Constitutional Constitutional: Reports as per HPI, Denies chills, Denies fever(s), Denies headache(s) and Denies poor appetite Eyes Eyes: Denies change in vision and Denies irritation ENT Ears, Nose, Mouth, and Throat: Reports as per HPI, Reports dental pain, Denies dysphagia, Denies dizziness, Denies ear discharge, Denies otalgia, Reports facial pain, Denies headache(s), Denies hoarseness, Denies lip swelling, Denies nasal congestion, Denies odynophagia and Denies sore throat Cardiovascular Cardiovascular: Reports as per HPI and Denies chest pain Respiratory Respiratory: Reports as per HPI and Denies cough Gastrointestinal Gastrointestinal: Reports as per HPI, Denies dysphagia, Denies nausea, Denies odynophagia and Denies vomiting Integumentary/Breasts Skin/Breast: Reports as per HPI, Denies erythema, Denies rash and Denies skin pain Neurologic Neurologic: Reports as per HPI, Denies dizziness and Denies headache(s) Allergic/Immunologic Allergic/Immunologic: Denies lip swelling Exam Const General: cooperative, healthy appearing, comfortable, no acute distress, well developed and well groomed Nutritional Appearance: average body habitus and well nourished Orientation: alert and awake [facility] Head: normal to inspection, normocephalic and atraumatic Ears: hearing grossly normal bilaterally General nose exam: external nose normal and nares normal Face and sinus: normal facial exam, sinuses nontender and face symmetric Teeth and gingiva: poor dentition (swelling nad discomfort left lower but no obvious abscess) Throat: posterior oropharynx normal, tonsils normal and uvula midline Eyes General: appearance normal, both eyes and all related structures Neck Neck: normal visual inspection, full ROM, no lymphadenopathy, supple and no anterior neck swelling Resp Effort & Inspection: normal respiratory effort, able to speak in complete sentences and no respiratory distress Auscultation: clear to auscultation bilaterally, no rales, no rhonchi and no wheezes Cardio Rate: regular rate Rhythm: regular rhythm Heart Sounds: S1 normal and S2 normal Skin General skin exam: no rashes or lesions noted Trauma: no lacerations or abrasions Neuro General: patient alert and patient awake Cognition: normal cognition Speech: speech normal Gait: normal gait Course Vital Signs Vital signs: Vital Signs Temperature 36.8 C 03/22/24 09:37 Pulse 86 03/22/24 09:37 Respiratory Rate 18 03/22/24 09:37 Blood Pressure 131/60 03/22/24 09:37 Temperature 36.8 C 03/22/24 09:37 Temperature Source Tympanic 03/22/24 09:37 Pulse 86 03/22/24 09:37 Respiratory Rate 18 03/22/24 09:37 Respiratory Effort Normal, Non-Labored 03/22/24 10:10 Blood Pressure 131/60 03/22/24 09:37 Blood Pressure Position Sitting 03/22/24 09:37 Oxygen Delivery Method Room Air 03/22/24 09:37 Oxygen Flow Rate 0 03/22/24 09:37 Pain Level 0 03/22/24 10:10 Medical Decision Making Patient is a pleasant 38-year-old female presenting today with chief complaint of left lower jaw pain that began about 3 days ago. She reports that she has had issues with infection here before. Often uses dental wax to help prevent pain. She does state this can be helpful. She reports that she is working with [employer] to control her substance use disorder but that she has been smoking fentanyl recently. She states since using the fentanyl, she feels like her throat has been more open. Is also concerned that she is now seeing a potential growth in her throat that looks like a second tongue. She has not had any difficulty swallowing, if anything throats been more open. She denies any fevers or chills. No radiation of pain. No difficulty breathing. Does not have routine dental care. On exam, patient appears nontoxic. He is hemodynamically stable. She does have small amount of swelling along the left lower jaw and has several missing teeth, particularly in the back. Nearly #20 tooth, patient has some darkening at the base of the tooth as well as wax applied. She has no palpable abscess that needs to be drained. No swelling under the tongue. No swelling in the posterior oropharynx. The tongue that was visible does appear to be her epiglottis. Patient has lost some weight which may explain why she is able to visualize this further. I do not palpate any lymphadenopathy or anything that may be causing this sensation that she is intermittently having. However, as it did not seem to be causing her to feel more open I do not feel that this is a medical emergency and can be discussed further with her primary care if needed. I advised that she may require a referral to ENT if she develops a sensation in her throat, particularly if it is bothersome to her. At this time however, will treat with antibiotics for dental infection. As the patient did take some Flagyl early on, will treat with Augmentin. Patient also has some allergies but is able to take this medication. She denies being . I encouraged supportive care. Encourage follow-up with dentist. I advised that she should discuss her opioid use further with [employer] and discuss potentially increasing her methadone as this sounds like is worked well for her in the past. I also encouraged follow-up with primary care regarding the sensation that she has had in her throat, may require ENT follow-up if does not subside. Return precautions were discussed. All of her questions and concerns were addressed and she is in agreement this plan. Quality:[facility] Health Related Social Needs: No Data to Display PFSH All Active Problems (Updated 03/22/24 @ 10:39 by LANNY Miranda) Dental infection (Acute) Abnormal Pap smear of cervix (Acute) Abnormal defecation (Acute) Obstipation (Acute) Anxiety (Chronic) Asthma (Chronic) Shortness of breath (Acute) Hypokalemia (Acute) Other prolapse of vaginal manzano without mention of uterine prolapse (Acute) Hx of tubal ligation (Chronic) Hoarseness (Acute) Pain, eye, right (Acute) Paresthesia (Acute) Left leg pain (Acute) Fatigue (Acute) Medical History URI (upper respiratory infection) Aphthous ulcer Nasal ulcer Smoker Anxiety ADD (attention deficit disorder) Acne Depressive disorder Opioid dependence Cocaine abuse Latex allergy History of drug abuse Low back pain Rectocele Dental abscess Lumbar radiculopathy Urge urinary incontinence Plantar fasciitis Soft tissue abscess Surgical History History of bilateral tubal ligation S/P excision of lipoma low back, [address] [facility] Family History Son Idiopathic thrombocytopenic purpura (ITP) Social History Smoking/Tobacco Use Status: Current every day Tobacco Type: e-cigarettes Smoking risk assessment performed?: Yes Alcohol Intake: never Drug use: Current Sobriety Substance use type: crack/cocaine, opiates and IV drugs Housing: apartment Number of Children: 2 current occupation: Unemployed Sexually active: Yes Current gender identity: female Seatbelt use: always Do you feel safe at home: Yes Do you feel safe in your relationship?: Yes Female Reproductive History Menstrual control method: permanent sterilization History History 3 Para 2 Hx # Term Pregnancies Multiple births Hx # Pregnancies Ectopic pregnancies AB induced Hx Number of Living Children AB spontaneous Past Pregnancies Del. Date GA/Weeks # Preg Succ Route Wgt Sex Labor Lgth Anesthesia Location Prov Com[facility] 10/20/03 32 Yes vaginal 3486.991 g Male [facility] 01/30/09 Yes vaginal 3628.739 g Male [facility] Delivery Date: 10/20/03 Last Updated by: Cherri Mckenzie Ty Delivery Date: 01/30/09 Last Updated by: Cherri Rutledge
== END 2024-03-22 11:10 | disposition home or self-care (01) ==
PROVIDERS: Emergency Provider Physician Assistant; PCP Family Medicine
DX: K08.89 Other specified disorders of teeth and supporting structures (principal); K04.7 Periapical abscess without sinus; F17.290 Nicotine dependence, other tobacco product, uncomplicated
CPT/HCPCS: 99283

== ENCOUNTER 2025-03-08 09:26 | Emergency (ER) | payer MEDICARE, MEDICAID, SELFPAY ==
[2025-03-08 09:53] VITALS: BP 98/63; PULSE 77; RESP 18; TEMP 36.9; O2SAT 98
[2025-03-08 09:54] LABS: Glucose Negative (Negative)
--- NOTE | 2025-03-08 09:55 | ED.GENADUL_ITS ---
Discharge Plan Disposition Patient Disposition: Home Condition: Stable Discharge Details Clinical Impression: Vaginal odor Primary Care Provider: Madhu Randle ED Provider: Lorene Jack Home Meds and New Rx's Prescriptions: New metronidazole 500 mg tablet 500 mg PO BID 7 Days Qty: 14 0RF Rx Instructions: Take one tablet by mouth twice daily x 7 days No Action methadone 10 MG/ML concentrate 100 mg PO DAILY Discharge Instructions Instructions: Vaginal discharge Additional Instructions: Please take the antibiotic as prescribed with yogurt or a probiotic twice daily for the next 7 days. At this time your strep swab was negative. It will take approximately 2 to 3 days for the culture results to return. Follow up with primary care provider in 3-5 days. Return to ED sooner if any worsening or concerns. Referrals: Madhu Randle MD [Primary Care Provider, Medicine] - 5 days Referral Note: ER follow up call for an appointment Travis Franklin MD [ [facility] STAFF PHYSICIAN, ENT Surgical] - 1 week Discharge Data Discharge Date/Time-TO BE ENTERED AT DEPARTURE: 03/08/25 10:40 HPI General Mode of arrival: ambulatory . Date/Time Provider Initiated Documentation: 03/08/25 09:53 . Limitations to Documentation: no limitations . Information obtained by: patient, RN notes reviewed and old records reviewed . HPI Narrative: 39 year old female presents with multiple complaints. Reports a vaginal odor and is concerned for trichomoniasis infection which she has had in past, she is also complaining of a swollen throat and feeling like she is getting a URI. She does take methadone and endorses smoking fentanyl. Other past medical history include cocaine abuse, anxiety ADD she does have a history of a tubal ligation. Related Data Home Medications ?Medication ?Instructions ?Recorded ?Confirmed methadone 10 mg/mL oral concentrate 100 mg PO DAILY 03/08/25 metronidazole 500 mg tablet 500 mg PO BID STI 7 days # 14 tabs 03/08/25 Previous Rx's ?Medication ?Instructions ?Recorded metronidazole 500 mg tablet 500 mg PO BID STI 7 days # 14 tabs 03/08/25 Allergies Allergy/AdvReac Type Severity Reaction Status Date / Time clindamycin Allergy Severe Swelling/Ed Unverified 03/08/25 09:57 toya ibuprofen Allergy Intermediate Swelling/Ed Unverified 03/08/25 09:57 toya indomethacin Allergy Intermediate Swelling/Ed Unverified 03/08/25 09:57 toya atomoxetine (From Strattera) Allergy Mild Other (See Unverified 03/08/25 09:57 Comment) latex Allergy Mild Itching Unverified 03/08/25 09:57 Latex, Natural Rubber Allergy Mild Skin Rash Unverified 03/08/25 09:57 methylphenidate (From Allergy Other (See Unverified 03/08/25 09:57 Concerta) Comment) almonds Allergy Other (See Uncoded 03/08/25 09:57 Comment) pecans Allergy Other (See Uncoded 03/08/25 09:57 Comment) General NAVID: 3 Review of Systems All systems reviewed & are unremarkable except as noted in HPI and below Genitourinary Genitourinary: Reports as per HPI and Reports vaginal odor Exam Narrative Exam Narrative: Constitutional: Alert and oriented x3. Appears stated age. Normal body habitus. Head: Normocephalic, no trauma. Eyes: Pupils PERRL, Red reflex noted, EOM's intact. Eyelids symmetrical without lesions, discharge, or swelling. ENT: Bilateral TM's WNL, External ear normal to inspection, no mastoid TTP, swelling, or erythema, Nasal turbinates WNL, no nasal discharge. Poor dentition, Posterior pharynx WNL, no exudate. Chest: RRR, Normal S1, S2, distal pulses intact. Resp: Lungs clear to auscultation bilaterally, no wheezes, rales, or rhonchi. Abdomen: Soft, non-distended, Normoactive bowel sounds all 4 quads. Musculoskeletal: Normal gait, Moves all 4 extremities without difficulty. Skin: No suspicious rashes or lesions. Capillary refill less than 2 sec. Neurologic: Cranial nerves II-XII intact. Alert and oriented x 3. Motor: No deficits noted. Sensory: Intact bilaterally all 4 extremities. Hematologic/Lymphatic: No ecchymosis, no lymphadenopathy. Medical Decision Making 39 year old female presents with multiple complaints. Reports a vaginal odor and is concerned for trichomoniasis infection which she has had in past, she is also complaining of a swollen throat and feeling like she is getting a URI. She does take methadone and endorses smoking fentanyl. Other past medical history include cocaine abuse, anxiety ADD she does have a history of a tubal ligation. Gonorrhea chlamydia ordered, urinalysis, strep swab dexamethasone 10 mg p.o. and Flagyl 500 mg. Patient discharged in hemodynamically stable condition instructed to follow-up with PCP. Patient was given Flagyl 500 mg twice daily. This text was generated using [employer] system, please disregard any oddities of phrase or misspellings. PFSH All Active Problems (Updated 03/08/25 @ 10:26 by Lorene Jack NP) Vaginal odor (Acute) Abnormal Pap smear of cervix (Acute) Abnormal defecation (Acute) Obstipation (Acute) Anxiety (Chronic) Asthma (Chronic) Shortness of breath (Acute) Hypokalemia (Acute) Other prolapse of vaginal manzano without mention of uterine prolapse (Acute) Hx of tubal ligation (Chronic) Hoarseness (Acute) Pain, eye, right (Acute) Paresthesia (Acute) Left leg pain (Acute) Fatigue (Acute) Medical History URI (upper respiratory infection) Aphthous ulcer Nasal ulcer Smoker Anxiety ADD (attention deficit disorder) Acne Depressive disorder Opioid dependence Cocaine abuse Latex allergy History of drug abuse Low back pain Rectocele Dental abscess Lumbar radiculopathy Urge urinary incontinence Plantar fasciitis Soft tissue abscess Surgical History History of bilateral tubal ligation S/P excision of lipoma low back, 2009 at [facility] Family History Son Idiopathic thrombocytopenic purpura (ITP) Social History Smoking/Tobacco Use Status: Current every day Tobacco Type: e-cigarettes Smoking risk assessment performed?: Yes Alcohol Intake: never Drug use: Current Sobriety Substance use type: crack/cocaine and opiates Details: states she smokes fentanyl daily Housing: apartment Number of Children: 2 current occupation: Unemployed Sexually active: Yes Current gender identity: female Seatbelt use: always Do you feel safe at home: Yes Do you feel safe in your relationship?: Yes Female Reproductive History Menstrual control method: permanent sterilization History History 3 Para 2 Hx # Term Pregnancies Multiple births Hx # Pregnancies Ectopic pregnancies AB induced Hx Number of Living Children AB spontaneous Past Pregnancies Del. Date GA/Weeks # Preg Succ Route Wgt Sex Labor Lgth Anesth esia Location Prov Complic 10/20/03 32 Yes vaginal 3486.991 g Male [facility] 01/30/09 Yes vaginal 3628.739 g Male [facility] Delivery Date: 10/20/03 Last Updated by: Cherri Mckenzie Ty Delivery Date: 01/30/09 Last Updated by: Cherri Rutledge
[2025-03-08 10:00] VITALS: BP 98/63; PULSE 77; RESP 18; TEMP 36.9; O2SAT 98
[2025-03-08] MEDS: metroNIDAZOLE 500 MG TAB PO (10:07)
[2025-03-09 10:52] LABS: Chlamydia Result Negative (Negative); GC Result Negative (Negative)
== END 2025-03-08 10:40 | disposition home or self-care (01) ==
PROVIDERS: Emergency Provider Registered Nurse Emergency; PCP Family Medicine
DX: N89.8 Other specified noninflammatory disorders of vagina (principal); R07.0 Pain in throat; F11.90 Opioid use, unspecified, uncomplicated; Z72.0 Tobacco use
CPT/HCPCS: 99284; 99283; 81025; 87880; 87491; 87591; 81003; 87081; J1100